=== PATIENT | female | born 1950 | race Hispanic/Latino ===

== ENCOUNTER 2018-12-24 04:57 | Inpatient (IN) | payer MEDICARE, OTHER ==
[~2018-12-24] VITALS: Ht 144.8 cm; Wt 52.2 kg
--- OUTSIDE RECORDS SUMMARY | 2018-12-24 05:02 | XMS REPORT ---
Author Author [facility] Address Unknown Phone Unavailable Care Team Providers Care Director Of Online [employer]chand[employer] Name Role Phone Unavailable Unavailable Payers Payer Name Policy Type Policy Number Effective Date Expiration Date Problems This patient has no known problems. Allergies, Adverse Reactions, Alerts Allergy Name Allergy Type Status Severity Reaction(s) Onset Date Inactive Date Treating Clinician Comments Sulfa (Sulfonamide Antibiotics) DA Active MO 2018-11-27 00:00:00 Sulfa (Sulfonamide Antibiotics) DA Active MO 2017-07-07 00:00:00 Medications This patient has no known medications. Results Test Description Test Time Test Comments Text Results Atomic Results Result Comments URINALYSIS COMPLETE 2018-12-23 03:58:00 UA COLOR (test code=COLU) YELLOW YELLOW UA APPEARANCE (test code=APPU) SLIGHTLY CLOUDY CLEAR UA GLUCOSE DIPSTICK (test code=DGLUU) 50 (Trace) mg/dL NEGATIVE UA BILIRUBIN DIPSTICK (test code=BILU) NEGATIVE mg/dL NEGATIVE UA KETONE DIPSTICK (test code=KETU) 5 (Trace) mg/dL NEGATIVE UA SPECIFIC GRAVITY (test code=SGU) 1.023 1.001-1.035 UA BLOOD DIPSTICK (test code=PATI) Negative NEGATIVE UA PH DIPSTICK (test code=MARIBETH) 5.0 5.0-8.0 UA PROTEIN DIPSTICK (test code=PROU) 100 (2+) mg/dL NEGATIVE UA UROBILINIOGEN DIPSTICK (test code=URO) NEGATIVE mg/dL NEGATIVE UA NITRITE DIPSTICK (test code=KB) NEGATIVE NEGATIVE UA LEUKOCYTE ESTERASE W REFLEX (test code=LEUUR) NEGATIVE NEGATIVE UA WBC (test code=WBCU) 0-5 #/HPF 0-5 UA RBC (test code=RBCU) 0-2 #/HPF 0-5 UA EPITHELIAL CELLS (test code=EPIU) FEW per HPF FEW UA BACTERIA (test code=BACU) FEW #/HPF NONE UA MUCUS (test code=MUCU) FEW #/LPF FEW Urine Source? Clean CatchBASIC METABOLIC [id number] 03:12:00* Test Item Value Reference Range Comments SODIUM (test code=NA) 140 mmol/L 136-145 POTASSIUM (test code=K) 4.7 mmol/L 3.5-5.1 CHLORIDE (test code=CL) 112.0 mmol/L 98-107 CARBON DIOXIDE (test code=CO2) 20.0 mmol/L 21-32 ANION GAP (test code=GAP) 12.7 10-20 GLUCOSE (test code=GLU) 103 mg/dL 74-106 BLOOD UREA NITROGEN (test code=BUN) 26 mg/dL 7-18 GLOMERULAR FILTRATION RATE (test code=GFR) 45 mL/min >=60 Estimated GFR by using Modified MDRD formula.Chronic kidney disease is defined as either kidney damageor GFR <60 mL/min/1.73 m2 for >3 months. CREATININE (test code=CREAT) 1.20 mg/dL 0.55-1.02 Note change in reference range due to change in reagent. BUN/CREATININE RATIO (test code=BUN/CREA) 21.7 10-20 CALCIUM (test code=CA) 7.9 mg/dL 8.5-10.1 HEPATIC FUNCTION [id number] 03:12:00* Test Item Value Reference Range Comments TOTAL PROTEIN (test code=PROT) 5.9 gram/dL 6.4-8.2 ALBUMIN (test code=ALB) 2.2 g/dL 3.4-5.0 GLOBULIN (test code=GLOB) 3.7 gram/dL 2.7-4.2 ALBUMIN/GLOBULIN RATIO (test code=A/G) 0.6 0.75-1.50 BILIRUBIN TOTAL (test code=BILT) 0.10 mg/dL 0.0-1.0 BILIRUBIN DIRECT (test code=BILD) < 0.05 mg/dL 0.0-0.20 SGOT/AST (test code=AST) 20 IUnit/L 15-37 SGPT/ALT (test code=ALT) 19 IUnit/L 12-78 ALKALINE PHOSPHATASE TOTAL (test code=ALKP) 96 IUnit/L 45-117 Note change in reference range due to change in reagent. [id number] 03:12:00* Test Item Value Reference Range Comments LIPASE (test code=LIP) 170 U/L 73.0-393.0 [id number] 03:12:00* Test Item Value Reference Range Comments TROPONIN-I (test code=TROPI) <0.015 ng/mL 0-0.045 BASIC METABOLIC [id number] 01:57:00* Test Item Value Reference Range Comments SODIUM (test code=NA) 140 mmol/L 136-145 POTASSIUM (test code=K) 4.7 mmol/L 3.5-5.1 CHLORIDE (test code=CL) 112.0 mmol/L 98-107 CARBON DIOXIDE (test code=CO2) mmol/L 21-32 ANION GAP (test code=GAP) 10-20 GLUCOSE (test code=GLU) mg/dL 74-106 BLOOD UREA NITROGEN (test code=BUN) mg/dL 7-18 GLOMERULAR FILTRATION RATE (test code=GFR) mL/min >=60 CREATININE (test code=CREAT) mg/dL 0.55-1.02 BUN/CREATININE RATIO (test code=BUN/CREA) 10-20 CALCIUM (test code=CA) mg/dL 8.5-10.1 HEPATIC FUNCTION [id number] 01:57:00* Test Item Value Reference Range Comments TOTAL PROTEIN (test code=PROT) gram/dL 6.4-8.2 ALBUMIN (test code=ALB) g/dL 3.4-5.0 GLOBULIN (test code=GLOB) gram/dL 2.7-4.2 ALBUMIN/GLOBULIN RATIO (test code=A/G) 0.75-1.50 BILIRUBIN TOTAL (test code=BILT) mg/dL 0.0-1.0 BILIRUBIN DIRECT (test code=BILD) mg/dL 0.0-0.20 SGOT/AST (test code=AST) IUnit/L 15-37 SGPT/ALT (test code=ALT) IUnit/L 12-78 ALKALINE PHOSPHATASE TOTAL (test code=ALKP) IUnit/L 45-117 [id number] 01:57:00* Test Item Value Reference Range Comments LIPASE (test code=LIP) U/L 73.0-393.0 [id number] 01:57:00* Test Item Value Reference Range Comments TROPONIN-I (test code=TROPI) ng/mL 0-0.045 CBC W/O [id number] 01:33:00* Test Item Value Reference Range Comments WHITE BLOOD CELL (test code=WBC) 11.1 K/mm3 4.5-12.5 RED BLOOD CELL (test code=RBC) 2.71 mill/mm3 3.7-5.2 HEMOGLOBIN (test code=HGB) 8.0 gram/dL 11.5-15.5 HEMATOCRIT (test code=HCT) 26.1 % 36.0-46.0 MEAN CELL VOLUME (test code=MCV) 96.3 fL 80-98 MEAN CELL HGB (test code=MCH) 29.5 picogram 27.0-33.0 MEAN CELL HGB CONCETRATION (test code=MCHC) 30.7 gram/dL 33.0-36.0 RED CELL DISTRIBUTION WIDTH (test code=RDW) 15.6 % 11.6-16.2 PLATELET COUNT (test code=PLT) 157 K/mm3 150-450 MEAN PLATELET VOLUME (test code=MPV) 10.4 fL 6.7-11.0 [id number] 20:49:00* Test Item Value Reference Range Comments GLUBED (test code=GLUBED) 124 mg/dL 74-106 Performed by certified soyfreeze operator at [facility] [id number] 13:10:00* Test Item Value Reference Range Comments GLUBED (test code=GLUBED) 225 mg/dL 74-106 Performed by certified soyfreeze operator at [facility] [id number] 09:24:00* Test Item Value Reference Range Comments GLUBED (test code=GLUBED) 124 mg/dL 74-106 Performed by certified soyfreeze operator at [facility] CBC W/MANUAL [id number] 06:07:00* Test Item Value Reference Range Comments WHITE BLOOD CELL (test code=WBC) 15.7 K/mm3 4.5-12.5 RED BLOOD CELL (test code=RBC) 2.85 mill/mm3 3.7-5.2 HEMOGLOBIN (test code=HGB) 8.1 gram/dL 11.5-15.5 HEMATOCRIT (test code=HCT) 26.3 % 36.0-46.0 MEAN CELL VOLUME (test code=MCV) 92.3 fL 80-98 MEAN CELL HGB (test code=MCH) 28.4 picogram 27.0-33.0 MEAN CELL HGB CONCETRATION (test code=MCHC) 30.8 gram/dL 33.0-36.0 RED CELL DISTRIBUTION WIDTH (test code=RDW) 15.2 % 11.6-16.2 RED CELL DISTRIBUTION WIDTH SD (test code=RDW-SD) 51.1 fL 37.0-51.0 PLATELET COUNT (test code=PLT) 104 K/mm3 150-450 RESULT VERIFIED BY REPEAT ANALYSIS MEAN PLATELET VOLUME (test code=MPV) 11.8 fL 6.7-11.0 IMMATURE GRANULOCYTE % (test code=IG%) 0.3 % 0.0-5.0 NUCLEATED RBC % (test code=NRBC%) 0.0 % 0-0 NEUTROPHIL # (test code=NT#) 3.62 K/mm3 1.8-7.7 IMMATURE GRANULOCYTE # (test code=IG#) 0.05 x10 3/uL 0-0.03 LYMPHOCYTE # (test code=LY#) 10.89 K/mm3 1.0-5.0 MONOCYTE # (test code=MO#) 0.79 K/mm3 0-0.8 EOSINOPHIL # (test code=EO#) 0.27 K/mm3 0.0-0.5 BASOPHIL # (test code=BA#) 0.05 K/mm3 0.0-0.2 NUCLEATED RBC # (test code=NRBC#) 0.00 K/mm3 0.0-0.1 MANUAL DIFF REQUIRED (test code=MDIFF) YES STAIN ACCEPTABILITY (test code=STN ACCEPTABLE) STAIN ACCEPTABLE TOTAL CELLS COUNTED (test code=TCC) 115 #CELLS SEGMENTED NEUTROPHILS (test code=SEG) 22.6 % 39-69 BAND NEUTROPHIL (test code=BAND) 0 % 0-10 LYMPHOCYTE (test code=LYMPH) 66.1 % 25-55 REACTIVE LYMPH (test code=RELYMPH) 0 % MONOCYTE (test code=MON) 9.6 % 0-10 EOSINOPHIL (test code=EOS) 0 % 0.0-5.0 BASOPHIL (test code=BASO) 1.7 % 0-1.0 METAMYELOCYTE (test code=META) 0 % 0-0 MYELOCYTE (test code=MYELO) 0 % 0.0-0.0 PROMYELOCYTE (test code=PROM) 0 % 0-0 ANISOCYTOSIS (test code=ANISO) 1+ PLATELET ESTIMATE (test code=PLTEST) DECREASED PLATELET MORPHOLOGY (test code=PLTMORPH) NORMAL IMMATURE FORMS (test code=IMMAT) 0 % BASIC METABOLIC [id number] 05:56:00* Test Item Value Reference Range Comments SODIUM (test code=NA) 140 mmol/L 136-145 POTASSIUM (test code=K) 4.5 mmol/L 3.5-5.1 CHLORIDE (test code=CL) 106.0 mmol/L 98-107 CARBON DIOXIDE (test code=CO2) 29.0 mmol/L 21-32 ANION GAP (test code=GAP) 9.5 10-20 GLUCOSE (test code=GLU) 194 mg/dL 74-106 BLOOD UREA NITROGEN (test code=BUN) 38 mg/dL 7-18 RESULT VERIFIED BY REPEAT ANALYSIS GLOMERULAR FILTRATION RATE (test code=GFR) 41 mL/min >=60 Estimated GFR by using Modified MDRD formula.Chronic kidney disease is defined as either kidney damageor GFR <60 mL/min/1.73 m2 for >3 months. CREATININE (test code=CREAT) 1.30 mg/dL 0.55-1.02 Note change in reference range due to change in reagent. BUN/CREATININE RATIO (test code=BUN/CREA) 29.2 10-20 CALCIUM (test code=CA) 7.6 mg/dL 8.5-10.1 BASIC METABOLIC [id number] 05:44:00* Test Item Value Reference Range Comments SODIUM (test code=NA) 140 mmol/L 136-145 POTASSIUM (test code=K) 4.5 mmol/L 3.5-5.1 CHLORIDE (test code=CL) 106.0 mmol/L 98-107 CARBON DIOXIDE (test code=CO2) mmol/L 21-32 ANION GAP (test code=GAP) 10-20 GLUCOSE (test code=GLU) mg/dL 74-106 BLOOD UREA NITROGEN (test code=BUN) mg/dL 7-18 GLOMERULAR FILTRATION RATE (test code=GFR) mL/min >=60 CREATININE (test code=CREAT) mg/dL 0.55-1.02 BUN/CREATININE RATIO (test code=BUN/CREA) 10-20 CALCIUM (test code=CA) mg/dL 8.5-10.1 CBC W/MANUAL [id number] 05:34:00* Test Item Value Reference Range Comments WHITE BLOOD CELL (test code=WBC) 15.7 K/mm3 4.5-12.5 RED BLOOD CELL (test code=RBC) 2.85 mill/mm3 3.7-5.2 HEMOGLOBIN (test code=HGB) 8.1 gram/dL 11.5-15.5 HEMATOCRIT (test code=HCT) 26.3 % 36.0-46.0 MEAN CELL VOLUME (test code=MCV) 92.3 fL 80-98 MEAN CELL HGB (test code=MCH) 28.4 picogram 27.0-33.0 MEAN CELL HGB CONCETRATION (test code=MCHC) 30.8 gram/dL 33.0-36.0 RED CELL DISTRIBUTION WIDTH (test code=RDW) 15.2 % 11.6-16.2 RED CELL DISTRIBUTION WIDTH SD (test code=RDW-SD) 51.1 fL 37.0-51.0 PLATELET COUNT (test code=PLT) 104 K/mm3 150-450 RESULT VERIFIED BY REPEAT ANALYSIS MEAN PLATELET VOLUME (test code=MPV) 11.8 fL 6.7-11.0 IMMATURE GRANULOCYTE % (test code=IG%) 0.3 % 0.0-5.0 NUCLEATED RBC % (test code=NRBC%) 0.0 % 0-0 NEUTROPHIL # (test code=NT#) 3.62 K/mm3 1.8-7.7 IMMATURE GRANULOCYTE # (test code=IG#) 0.05 x10 3/uL 0-0.03 LYMPHOCYTE # (test code=LY#) 10.89 K/mm3 1.0-5.0 MONOCYTE # (test code=MO#) 0.79 K/mm3 0-0.8 EOSINOPHIL # (test code=EO#) 0.27 K/mm3 0.0-0.5 BASOPHIL # (test code=BA#) 0.05 K/mm3 0.0-0.2 NUCLEATED RBC # (test code=NRBC#) 0.00 K/mm3 0.0-0.1 MANUAL DIFF REQUIRED (test code=MDIFF) YES STAIN ACCEPTABILITY (test code=STN ACCEPTABLE) TOTAL CELLS COUNTED (test code=TCC) #CELLS SEGMENTED NEUTROPHILS (test code=SEG) % 39-69 LYMPHOCYTE (test code=LYMPH) % 25-55 MONOCYTE (test code=MON) % 0-10 EOSINOPHIL (test code=EOS) % 0.0-5.0 CABOT RINGS (test code=CAB) MORPHOLOGY COMMENT (test code=MOC) PLATELET ESTIMATE (test code=PLTEST) PLATELET MORPHOLOGY (test code=PLTMORPH) CBC W/MANUAL [id number] 05:34:00* Test Item Value Reference Range Comments WHITE BLOOD CELL (test code=WBC) 15.7 K/mm3 4.5-12.5 RED BLOOD CELL (test code=RBC) 2.85 mill/mm3 3.7-5.2 HEMOGLOBIN (test code=HGB) 8.1 gram/dL 11.5-15.5 HEMATOCRIT (test code=HCT) 26.3 % 36.0-46.0 MEAN CELL VOLUME (test code=MCV) 92.3 fL 80-98 MEAN CELL HGB (test code=MCH) 28.4 picogram 27.0-33.0 MEAN CELL HGB CONCETRATION (test code=MCHC) 30.8 gram/dL 33.0-36.0 RED CELL DISTRIBUTION WIDTH (test code=RDW) 15.2 % 11.6-16.2 RED CELL DISTRIBUTION WIDTH SD (test code=RDW-SD) 51.1 fL 37.0-51.0 PLATELET COUNT (test code=PLT) 104 K/mm3 150-450 RESULT VERIFIED BY REPEAT ANALYSIS MEAN PLATELET VOLUME (test code=MPV) 11.8 fL 6.7-11.0 IMMATURE GRANULOCYTE % (test code=IG%) 0.3 % 0.0-5.0 NUCLEATED RBC % (test code=NRBC%) 0.0 % 0-0 NEUTROPHIL # (test code=NT#) 3.62 K/mm3 1.8-7.7 IMMATURE GRANULOCYTE # (test code=IG#) 0.05 x10 3/uL 0-0.03 LYMPHOCYTE # (test code=LY#) 10.89 K/mm3 1.0-5.0 MONOCYTE # (test code=MO#) 0.79 K/mm3 0-0.8 EOSINOPHIL # (test code=EO#) 0.27 K/mm3 0.0-0.5 BASOPHIL # (test code=BA#) 0.05 K/mm3 0.0-0.2 NUCLEATED RBC # (test code=NRBC#) 0.00 K/mm3 0.0-0.1 MANUAL DIFF REQUIRED (test code=MDIFF) YES STAIN ACCEPTABILITY (test code=STN ACCEPTABLE) TOTAL CELLS COUNTED (test code=TCC) #CELLS SEGMENTED NEUTROPHILS (test code=SEG) % 39-69 LYMPHOCYTE (test code=LYMPH) % 25-55 MONOCYTE (test code=MON) % 0-10 EOSINOPHIL (test code=EOS) % 0.0-5.0 CABOT RINGS (test code=CAB) MORPHOLOGY COMMENT (test code=MOC) PLATELET ESTIMATE (test code=PLTEST) PLATELET MORPHOLOGY (test code=PLTMORPH) CBC W/MANUAL [id number] 05:34:00* Test Item Value Reference Range Comments WHITE BLOOD CELL (test code=WBC) 15.7 K/mm3 4.5-12.5 RED BLOOD CELL (test code=RBC) 2.85 mill/mm3 3.7-5.2 HEMOGLOBIN (test code=HGB) 8.1 gram/dL 11.5-15.5 HEMATOCRIT (test code=HCT) 26.3 % 36.0-46.0 MEAN CELL VOLUME (test code=MCV) 92.3 fL 80-98 MEAN CELL HGB (test code=MCH) 28.4 picogram 27.0-33.0 MEAN CELL HGB CONCETRATION (test code=MCHC) 30.8 gram/dL 33.0-36.0 RED CELL DISTRIBUTION WIDTH (test code=RDW) 15.2 % 11.6-16.2 RED CELL DISTRIBUTION WIDTH SD (test code=RDW-SD) 51.1 fL 37.0-51.0 PLATELET COUNT (test code=PLT) 104 K/mm3 150-450 RESULT VERIFIED BY REPEAT ANALYSIS MEAN PLATELET VOLUME (test code=MPV) 11.8 fL 6.7-11.0 IMMATURE GRANULOCYTE % (test code=IG%) 0.3 % 0.0-5.0 NUCLEATED RBC % (test code=NRBC%) 0.0 % 0-0 NEUTROPHIL # (test code=NT#) 3.62 K/mm3 1.8-7.7 IMMATURE GRANULOCYTE # (test code=IG#) 0.05 x10 3/uL 0-0.03 LYMPHOCYTE # (test code=LY#) 10.89 K/mm3 1.0-5.0 MONOCYTE # (test code=MO#) 0.79 K/mm3 0-0.8 EOSINOPHIL # (test code=EO#) 0.27 K/mm3 0.0-0.5 BASOPHIL # (test code=BA#) 0.05 K/mm3 0.0-0.2 NUCLEATED RBC # (test code=NRBC#) 0.00 K/mm3 0.0-0.1 MANUAL DIFF REQUIRED (test code=MDIFF) YES STAIN ACCEPTABILITY (test code=STN ACCEPTABLE) TOTAL CELLS COUNTED (test code=TCC) #CELLS SEGMENTED NEUTROPHILS (test code=SEG) % 39-69 LYMPHOCYTE (test code=LYMPH) % 25-55 MONOCYTE (test code=MON) % 0-10 EOSINOPHIL (test code=EOS) % 0.0-5.0 MORPHOLOGY COMMENT (test code=MOC) PLATELET ESTIMATE (test code=PLTEST) PLATELET MORPHOLOGY (test code=PLTMORPH) CBC W/MANUAL [id number] 05:34:00* Test Item Value Reference Range Comments WHITE BLOOD CELL (test code=WBC) 15.7 K/mm3 4.5-12.5 RED BLOOD CELL (test code=RBC) 2.85 mill/mm3 3.7-5.2 HEMOGLOBIN (test code=HGB) 8.1 gram/dL 11.5-15.5 HEMATOCRIT (test code=HCT) 26.3 % 36.0-46.0 MEAN CELL VOLUME (test code=MCV) 92.3 fL 80-98 MEAN CELL HGB (test code=MCH) 28.4 picogram 27.0-33.0 MEAN CELL HGB CONCETRATION (test code=MCHC) 30.8 gram/dL 33.0-36.0 RED CELL DISTRIBUTION WIDTH (test code=RDW) 15.2 % 11.6-16.2 RED CELL DISTRIBUTION WIDTH SD (test code=RDW-SD) 51.1 fL 37.0-51.0 PLATELET COUNT (test code=PLT) 104 K/mm3 150-450 RESULT VERIFIED BY REPEAT ANALYSIS MEAN PLATELET VOLUME (test code=MPV) 11.8 fL 6.7-11.0 IMMATURE GRANULOCYTE % (test code=IG%) 0.3 % 0.0-5.0 NUCLEATED RBC % (test code=NRBC%) 0.0 % 0-0 NEUTROPHIL # (test code=NT#) 3.62 K/mm3 1.8-7.7 IMMATURE GRANULOCYTE # (test code=IG#) 0.05 x10 3/uL 0-0.03 LYMPHOCYTE # (test code=LY#) 10.89 K/mm3 1.0-5.0 MONOCYTE # (test code=MO#) 0.79 K/mm3 0-0.8 EOSINOPHIL # (test code=EO#) 0.27 K/mm3 0.0-0.5 BASOPHIL # (test code=BA#) 0.05 K/mm3 0.0-0.2 NUCLEATED RBC # (test code=NRBC#) 0.00 K/mm3 0.0-0.1 MANUAL DIFF REQUIRED (test code=MDIFF) YES STAIN ACCEPTABILITY (test code=STN ACCEPTABLE) TOTAL CELLS COUNTED (test code=TCC) #CELLS SEGMENTED NEUTROPHILS (test code=SEG) % 39-69 LYMPHOCYTE (test code=LYMPH) % 25-55 MONOCYTE (test code=MON) % 0-10 MORPHOLOGY COMMENT (test code=MOC) PLATELET ESTIMATE (test code=PLTEST) PLATELET MORPHOLOGY (test code=PLTMORPH) CBC W/MANUAL [id number] 05:34:00* Test Item Value Reference Range Comments WHITE BLOOD CELL (test code=WBC) 15.7 K/mm3 4.5-12.5 RED BLOOD CELL (test code=RBC) 2.85 mill/mm3 3.7-5.2 HEMOGLOBIN (test code=HGB) 8.1 gram/dL 11.5-15.5 HEMATOCRIT (test code=HCT) 26.3 % 36.0-46.0 MEAN CELL VOLUME (test code=MCV) 92.3 fL 80-98 MEAN CELL HGB (test code=MCH) 28.4 picogram 27.0-33.0 MEAN CELL HGB CONCETRATION (test code=MCHC) 30.8 gram/dL 33.0-36.0 RED CELL DISTRIBUTION WIDTH (test code=RDW) 15.2 % 11.6-16.2 RED CELL DISTRIBUTION WIDTH SD (test code=RDW-SD) 51.1 fL 37.0-51.0 PLATELET COUNT (test code=PLT) 104 K/mm3 150-450 RESULT VERIFIED BY REPEAT ANALYSIS MEAN PLATELET VOLUME (test code=MPV) 11.8 fL 6.7-11.0 IMMATURE GRANULOCYTE % (test code=IG%) 0.3 % 0.0-5.0 NUCLEATED RBC % (test code=NRBC%) 0.0 % 0-0 NEUTROPHIL # (test code=NT#) 3.62 K/mm3 1.8-7.7 IMMATURE GRANULOCYTE # (test code=IG#) 0.05 x10 3/uL 0-0.03 LYMPHOCYTE # (test code=LY#) 10.89 K/mm3 1.0-5.0 MONOCYTE # (test code=MO#) 0.79 K/mm3 0-0.8 EOSINOPHIL # (test code=EO#) 0.27 K/mm3 0.0-0.5 BASOPHIL # (test code=BA#) 0.05 K/mm3 0.0-0.2 NUCLEATED RBC # (test code=NRBC#) 0.00 K/mm3 0.0-0.1 MANUAL DIFF REQUIRED (test code=MDIFF) YES STAIN ACCEPTABILITY (test code=STN ACCEPTABLE) TOTAL CELLS COUNTED (test code=TCC) #CELLS SEGMENTED NEUTROPHILS (test code=SEG) % 39-69 LYMPHOCYTE (test code=LYMPH) % 25-55 MONOCYTE (test code=MON) % 0-10 EOSINOPHIL (test code=EOS) % 0.0-5.0 CABOT RINGS (test code=CAB) MORPHOLOGY COMMENT (test code=MOC) PLATELET ESTIMATE (test code=PLTEST) PLATELET MORPHOLOGY (test code=PLTMORPH) [id number] 20:54:00* Test Item Value Reference Range Comments GLUBED (test code=GLUBED) 238 mg/dL 74-106 Performed by certified soyfreeze operator at [facility] [id number] 16:01:00* Test Item Value Reference Range Comments GLUBED (test code=GLUBED) 146 mg/dL 74-106 Performed by certified soyfreeze operator at [facility] [id number] 11:36:00* Test Item Value Reference Range Comments GLUBED (test code=GLUBED) 228 mg/dL 74-106 Performed by certified soyfreeze operator at [facility] CBC W/MANUAL [id number] 08:49:00* Test Item Value Reference Range Comments WHITE BLOOD CELL (test code=WBC) 14.5 K/mm3 4.5-12.5 RED BLOOD CELL (test code=RBC) 2.92 mill/mm3 3.7-5.2 HEMOGLOBIN (test code=HGB) 8.2 gram/dL 11.5-15.5 HEMATOCRIT (test code=HCT) 27.5 % 36.0-46.0 MEAN CELL VOLUME (test code=MCV) 94.2 fL 80-98 MEAN CELL HGB (test code=MCH) 28.1 picogram 27.0-33.0 MEAN CELL HGB CONCETRATION (test code=MCHC) 29.8 gram/dL 33.0-36.0 RED CELL DISTRIBUTION WIDTH (test code=RDW) 15.4 % 11.6-16.2 RED CELL DISTRIBUTION WIDTH SD (test code=RDW-SD) 53.1 fL 37.0-51.0 PLATELET COUNT (test code=PLT) 184 K/mm3 150-450 MEAN PLATELET VOLUME (test code=MPV) 10.7 fL 6.7-11.0 IMMATURE GRANULOCYTE % (test code=IG%) 0.3 % 0.0-5.0 NUCLEATED RBC % (test code=NRBC%) 0.0 % 0-0 NEUTROPHIL # (test code=NT#) 3.43 K/mm3 1.8-7.7 IMMATURE GRANULOCYTE # (test code=IG#) 0.05 x10 3/uL 0-0.03 LYMPHOCYTE # (test code=LY#) 9.90 K/mm3 1.0-5.0 MONOCYTE # (test code=MO#) 0.86 K/mm3 0-0.8 EOSINOPHIL # (test code=EO#) 0.23 K/mm3 0.0-0.5 BASOPHIL # (test code=BA#) 0.05 K/mm3 0.0-0.2 NUCLEATED RBC # (test code=NRBC#) 0.00 K/mm3 0.0-0.1 MANUAL DIFF REQUIRED (test code=MDIFF) YES STAIN ACCEPTABILITY (test code=STN ACCEPTABLE) STAIN ACCEPTABLE TOTAL CELLS COUNTED (test code=TCC) 119 #CELLS SEGMENTED NEUTROPHILS (test code=SEG) 31.9 % 39-69 BAND NEUTROPHIL (test code=BAND) 0 % 0-10 LYMPHOCYTE (test code=LYMPH) 59.7 % 25-55 REACTIVE LYMPH (test code=RELYMPH) 0 % MONOCYTE (test code=MON) 2.5 % 0-10 EOSINOPHIL (test code=EOS) 3.4 % 0.0-5.0 BASOPHIL (test code=BASO) 1.7 % 0-1.0 METAMYELOCYTE (test code=META) 0 % 0-0 MYELOCYTE (test code=MYELO) 0 % 0.0-0.0 PROMYELOCYTE (test code=PROM) 0 % 0-0 MORPHOLOGY COMMENT (test code=MOC) NORMAL PLATELET ESTIMATE (test code=PLTEST) ADEQUATE PLATELET MORPHOLOGY (test code=PLTMORPH) CLUMPING PRESENT IMMATURE FORMS (test code=IMMAT) 0 % BASIC METABOLIC [id number] 08:26:00* Test Item Value Reference Range Comments SODIUM (test code=NA) 143 mmol/L 136-145 POTASSIUM (test code=K) 4.6 mmol/L 3.5-5.1 CHLORIDE (test code=CL) 109.0 mmol/L 98-107 CARBON DIOXIDE (test code=CO2) 29.0 mmol/L 21-32 ANION GAP (test code=GAP) 9.6 10-20 GLUCOSE (test code=GLU) 112 mg/dL 74-106 BLOOD UREA NITROGEN (test code=BUN) 28 mg/dL 7-18 GLOMERULAR FILTRATION RATE (test code=GFR) 45 mL/min >=60 Estimated GFR by using Modified MDRD formula.Chronic kidney disease is defined as either kidney damageor GFR <60 mL/min/1.73 m2 for >3 months. CREATININE (test code=CREAT) 1.20 mg/dL 0.55-1.02 Note change in reference range due to change in reagent. BUN/CREATININE RATIO (test code=BUN/CREA) 23.1 10-20 CALCIUM (test code=CA) 8.0 mg/dL 8.5-10.1 BASIC METABOLIC [id number] 08:21:00* Test Item Value Reference Range Comments SODIUM (test code=NA) 143 mmol/L 136-145 POTASSIUM (test code=K) 4.6 mmol/L 3.5-5.1 CHLORIDE (test code=CL) 109.0 mmol/L 98-107 CARBON DIOXIDE (test code=CO2) mmol/L 21-32 ANION GAP (test code=GAP) 10-20 GLUCOSE (test code=GLU) mg/dL 74-106 BLOOD UREA NITROGEN (test code=BUN) mg/dL 7-18 GLOMERULAR FILTRATION RATE (test code=GFR) mL/min >=60 CREATININE (test code=CREAT) mg/dL 0.55-1.02 BUN/CREATININE RATIO (test code=BUN/CREA) 10-20 CALCIUM (test code=CA) mg/dL 8.5-10.1 CBC W/MANUAL [id number] 08:17:00* Test Item Value Reference Range Comments WHITE BLOOD CELL (test code=WBC) 14.5 K/mm3 4.5-12.5 RED BLOOD CELL (test code=RBC) 2.92 mill/mm3 3.7-5.2 HEMOGLOBIN (test code=HGB) 8.2 gram/dL 11.5-15.5 HEMATOCRIT (test code=HCT) 27.5 % 36.0-46.0 MEAN CELL VOLUME (test code=MCV) 94.2 fL 80-98 MEAN CELL HGB (test code=MCH) 28.1 picogram 27.0-33.0 MEAN CELL HGB CONCETRATION (test code=MCHC) 29.8 gram/dL 33.0-36.0 RED CELL DISTRIBUTION WIDTH (test code=RDW) 15.4 % 11.6-16.2 RED CELL DISTRIBUTION WIDTH SD (test code=RDW-SD) 53.1 fL 37.0-51.0 PLATELET COUNT (test code=PLT) 184 K/mm3 150-450 MEAN PLATELET VOLUME (test code=MPV) 10.7 fL 6.7-11.0 IMMATURE GRANULOCYTE % (test code=IG%) 0.3 % 0.0-5.0 NUCLEATED RBC % (test code=NRBC%) 0.0 % 0-0 NEUTROPHIL # (test code=NT#) 3.43 K/mm3 1.8-7.7 IMMATURE GRANULOCYTE # (test code=IG#) 0.05 x10 3/uL 0-0.03 LYMPHOCYTE # (test code=LY#) 9.90 K/mm3 1.0-5.0 MONOCYTE # (test code=MO#) 0.86 K/mm3 0-0.8 EOSINOPHIL # (test code=EO#) 0.23 K/mm3 0.0-0.5 BASOPHIL # (test code=BA#) 0.05 K/mm3 0.0-0.2 NUCLEATED RBC # (test code=NRBC#) 0.00 K/mm3 0.0-0.1 MANUAL DIFF REQUIRED (test code=MDIFF) YES STAIN ACCEPTABILITY (test code=STN ACCEPTABLE) TOTAL CELLS COUNTED (test code=TCC) #CELLS SEGMENTED NEUTROPHILS (test code=SEG) % 39-69 LYMPHOCYTE (test code=LYMPH) % 25-55 MONOCYTE (test code=MON) % 0-10 EOSINOPHIL (test code=EOS) % 0.0-5.0 CABOT RINGS (test code=CAB) MORPHOLOGY COMMENT (test code=MOC) PLATELET ESTIMATE (test code=PLTEST) PLATELET MORPHOLOGY (test code=PLTMORPH) CBC W/MANUAL [id number] 08:17:00* Test Item Value Reference Range Comments WHITE BLOOD CELL (test code=WBC) 14.5 K/mm3 4.5-12.5 RED BLOOD CELL (test code=RBC) 2.92 mill/mm3 3.7-5.2 HEMOGLOBIN (test code=HGB) 8.2 gram/dL 11.5-15.5 HEMATOCRIT (test code=HCT) 27.5 % 36.0-46.0 MEAN CELL VOLUME (test code=MCV) 94.2 fL 80-98 MEAN CELL HGB (test code=MCH) 28.1 picogram 27.0-33.0 MEAN CELL HGB CONCETRATION (test code=MCHC) 29.8 gram/dL 33.0-36.0 RED CELL DISTRIBUTION WIDTH (test code=RDW) 15.4 % 11.6-16.2 RED CELL DISTRIBUTION WIDTH SD (test code=RDW-SD) 53.1 fL 37.0-51.0 PLATELET COUNT (test code=PLT) 184 K/mm3 150-450 MEAN PLATELET VOLUME (test code=MPV) 10.7 fL 6.7-11.0 IMMATURE GRANULOCYTE % (test code=IG%) 0.3 % 0.0-5.0 NUCLEATED RBC % (test code=NRBC%) 0.0 % 0-0 NEUTROPHIL # (test code=NT#) 3.43 K/mm3 1.8-7.7 IMMATURE GRANULOCYTE # (test code=IG#) 0.05 x10 3/uL 0-0.03 LYMPHOCYTE # (test code=LY#) 9.90 K/mm3 1.0-5.0 MONOCYTE # (test code=MO#) 0.86 K/mm3 0-0.8 EOSINOPHIL # (test code=EO#) 0.23 K/mm3 0.0-0.5 BASOPHIL # (test code=BA#) 0.05 K/mm3 0.0-0.2 NUCLEATED RBC # (test code=NRBC#) 0.00 K/mm3 0.0-0.1 MANUAL DIFF REQUIRED (test code=MDIFF) YES STAIN ACCEPTABILITY (test code=STN ACCEPTABLE) TOTAL CELLS COUNTED (test code=TCC) #CELLS SEGMENTED NEUTROPHILS (test code=SEG) % 39-69 LYMPHOCYTE (test code=LYMPH) % 25-55 MONOCYTE (test code=MON) % 0-10 EOSINOPHIL (test code=EOS) % 0.0-5.0 CABOT RINGS (test code=CAB) MORPHOLOGY COMMENT (test code=MOC) PLATELET ESTIMATE (test code=PLTEST) PLATELET MORPHOLOGY (test code=PLTMORPH) CBC W/MANUAL [id number] 08:17:00* Test Item Value Reference Range Comments WHITE BLOOD CELL (test code=WBC) 14.5 K/mm3 4.5-12.5 RED BLOOD CELL (test code=RBC) 2.92 mill/mm3 3.7-5.2 HEMOGLOBIN (test code=HGB) 8.2 gram/dL 11.5-15.5 HEMATOCRIT (test code=HCT) 27.5 % 36.0-46.0 MEAN CELL VOLUME (test code=MCV) 94.2 fL 80-98 MEAN CELL HGB (test code=MCH) 28.1 picogram 27.0-33.0 MEAN CELL HGB CONCETRATION (test code=MCHC) 29.8 gram/dL 33.0-36.0 RED CELL DISTRIBUTION WIDTH (test code=RDW) 15.4 % 11.6-16.2 RED CELL DISTRIBUTION WIDTH SD (test code=RDW-SD) 53.1 fL 37.0-51.0 PLATELET COUNT (test code=PLT) 184 K/mm3 150-450 MEAN PLATELET VOLUME (test code=MPV) 10.7 fL 6.7-11.0 IMMATURE GRANULOCYTE % (test code=IG%) 0.3 % 0.0-5.0 NUCLEATED RBC % (test code=NRBC%) 0.0 % 0-0 NEUTROPHIL # (test code=NT#) 3.43 K/mm3 1.8-7.7 IMMATURE GRANULOCYTE # (test code=IG#) 0.05 x10 3/uL 0-0.03 LYMPHOCYTE # (test code=LY#) 9.90 K/mm3 1.0-5.0 MONOCYTE # (test code=MO#) 0.86 K/mm3 0-0.8 EOSINOPHIL # (test code=EO#) 0.23 K/mm3 0.0-0.5 BASOPHIL # (test code=BA#) 0.05 K/mm3 0.0-0.2 NUCLEATED RBC # (test code=NRBC#) 0.00 K/mm3 0.0-0.1 MANUAL DIFF REQUIRED (test code=MDIFF) YES STAIN ACCEPTABILITY (test code=STN ACCEPTABLE) TOTAL CELLS COUNTED (test code=TCC) #CELLS SEGMENTED NEUTROPHILS (test code=SEG) % 39-69 LYMPHOCYTE (test code=LYMPH) % 25-55 MONOCYTE (test code=MON) % 0-10 EOSINOPHIL (test code=EOS) % 0.0-5.0 MORPHOLOGY COMMENT (test code=MOC) PLATELET ESTIMATE (test code=PLTEST) PLATELET MORPHOLOGY (test code=PLTMORPH) CBC W/MANUAL [id number] 08:17:00* Test Item Value Reference Range Comments WHITE BLOOD CELL (test code=WBC) 14.5 K/mm3 4.5-12.5 RED BLOOD CELL (test code=RBC) 2.92 mill/mm3 3.7-5.2 HEMOGLOBIN (test code=HGB) 8.2 gram/dL 11.5-15.5 HEMATOCRIT (test code=HCT) 27.5 % 36.0-46.0 MEAN CELL VOLUME (test code=MCV) 94.2 fL 80-98 MEAN CELL HGB (test code=MCH) 28.1 picogram 27.0-33.0 MEAN CELL HGB CONCETRATION (test code=MCHC) 29.8 gram/dL 33.0-36.0 RED CELL DISTRIBUTION WIDTH (test code=RDW) 15.4 % 11.6-16.2 RED CELL DISTRIBUTION WIDTH SD (test code=RDW-SD) 53.1 fL 37.0-51.0 PLATELET COUNT (test code=PLT) 184 K/mm3 150-450 MEAN PLATELET VOLUME (test code=MPV) 10.7 fL 6.7-11.0 IMMATURE GRANULOCYTE % (test code=IG%) 0.3 % 0.0-5.0 NUCLEATED RBC % (test code=NRBC%) 0.0 % 0-0 NEUTROPHIL # (test code=NT#) 3.43 K/mm3 1.8-7.7 IMMATURE GRANULOCYTE # (test code=IG#) 0.05 x10 3/uL 0-0.03 LYMPHOCYTE # (test code=LY#) 9.90 K/mm3 1.0-5.0 MONOCYTE # (test code=MO#) 0.86 K/mm3 0-0.8 EOSINOPHIL # (test code=EO#) 0.23 K/mm3 0.0-0.5 BASOPHIL # (test code=BA#) 0.05 K/mm3 0.0-0.2 NUCLEATED RBC # (test code=NRBC#) 0.00 K/mm3 0.0-0.1 MANUAL DIFF REQUIRED (test code=MDIFF) YES STAIN ACCEPTABILITY (test code=STN ACCEPTABLE) TOTAL CELLS COUNTED (test code=TCC) #CELLS SEGMENTED NEUTROPHILS (test code=SEG) % 39-69 LYMPHOCYTE (test code=LYMPH) % 25-55 MONOCYTE (test code=MON) % 0-10 MORPHOLOGY COMMENT (test code=MOC) PLATELET ESTIMATE (test code=PLTEST) PLATELET MORPHOLOGY (test code=PLTMORPH) CBC W/MANUAL [id number] 08:17:00* Test Item Value Reference Range Comments WHITE BLOOD CELL (test code=WBC) 14.5 K/mm3 4.5-12.5 RED BLOOD CELL (test code=RBC) 2.92 mill/mm3 3.7-5.2 HEMOGLOBIN (test code=HGB) 8.2 gram/dL 11.5-15.5 HEMATOCRIT (test code=HCT) 27.5 % 36.0-46.0 MEAN CELL VOLUME (test code=MCV) 94.2 fL 80-98 MEAN CELL HGB (test code=MCH) 28.1 picogram 27.0-33.0 MEAN CELL HGB CONCETRATION (test code=MCHC) 29.8 gram/dL 33.0-36.0 RED CELL DISTRIBUTION WIDTH (test code=RDW) 15.4 % 11.6-16.2 RED CELL DISTRIBUTION WIDTH SD (test code=RDW-SD) 53.1 fL 37.0-51.0 PLATELET COUNT (test code=PLT) 184 K/mm3 150-450 MEAN PLATELET VOLUME (test code=MPV) 10.7 fL 6.7-11.0 IMMATURE GRANULOCYTE % (test code=IG%) 0.3 % 0.0-5.0 NUCLEATED RBC % (test code=NRBC%) 0.0 % 0-0 NEUTROPHIL # (test code=NT#) 3.43 K/mm3 1.8-7.7 IMMATURE GRANULOCYTE # (test code=IG#) 0.05 x10 3/uL 0-0.03 LYMPHOCYTE # (test code=LY#) 9.90 K/mm3 1.0-5.0 MONOCYTE # (test code=MO#) 0.86 K/mm3 0-0.8 EOSINOPHIL # (test code=EO#) 0.23 K/mm3 0.0-0.5 BASOPHIL # (test code=BA#) 0.05 K/mm3 0.0-0.2 NUCLEATED RBC # (test code=NRBC#) 0.00 K/mm3 0.0-0.1 MANUAL DIFF REQUIRED (test code=MDIFF) YES STAIN ACCEPTABILITY (test code=STN ACCEPTABLE) TOTAL CELLS COUNTED (test code=TCC) #CELLS SEGMENTED NEUTROPHILS (test code=SEG) % 39-69 LYMPHOCYTE (test code=LYMPH) % 25-55 MONOCYTE (test code=MON) % 0-10 EOSINOPHIL (test code=EOS) % 0.0-5.0 CABOT RINGS (test code=CAB) MORPHOLOGY COMMENT (test code=MOC) PLATELET ESTIMATE (test code=PLTEST) PLATELET MORPHOLOGY (test code=PLTMORPH) [id number] 07:57:00* Test Item Value Reference Range Comments GLUBED (test code=GLUBED) 104 mg/dL 74-106 Performed by certified soyfreeze operator at [facility] LEUK/LYMPH MARKERS [id number] 06:42:00* Test Item Value Reference Range Comments LEUK/LYMPHOMA PANEL (test code=LEULYM) CLINICAL () A monoclonal B cell population is detected with lambda light chainrestriction, representing 68% of the leukocytes. These B cells kfbtwvuYJ89, CD19, CD20, CD22, CD23, CD38, FMC-7 (dim) and HLA-DR. They lackexpression of CD5, CD11c, and CD103.There is no loss of, or aberrant expression of, the joyner T cell antigens tosuggest a neoplastic T cell process.CD4:CD8 ratio 2.8No circulating blasts are detected. There is no immunophenotypic evidenceof abnormal myeloid maturation. Rare neutrophils show slightly left-shiftedmaturation.Monocytes show aberrant expression of CD56, a finding that can be seen inassociation with both reactive/activated processes as well as neoplasticprocesses.Analysis of the viable lymphocyte population shows: B cells 92%, T cells7%, NK cells 1%. COMMENT(S) (test code=COMM) () Peripheral blood VIABILITY (test code=VIABILI) () 79%Cell viability in this sample is sufficient for analysis but is less thanoptimal.The specimen was 3 days old when received in the Flow Cytometry laboratory. FLOW CYTO INTERPRETATION (test code=INTFLOW) () [employer] GATING STRATEGY (test code=GATSTT) () 8 color analysis with CD45/SSC gating COMMENT(S) (test code=COM) Flow Interpretation:CD10+ clonal B cell population detected. (See comment.) Flow Comment:Recommend clinical correlation and follow up as appropriate.Coexpression of CD10 on the monoclonal B cell population isconsistent with a lymphoma of follicular center cell origin.The differential includes follicular lymphoma, diffuse largeB cell lymphoma, and Burkitt leukemia/lymphoma. Phenotype Chart:CD2 (-) CD3 (-)CD4 (-) CD5 (- )CD7 (-) CD8 (-)CD10 (+) CD11b (-)CD11c (-) CD13 (-)CD14 (-) CD15 (-)CD16 (-) CD19 (+) YcthhblrIM57 (+) CD22 (+)CD23 (+) CD33 (-)CD34 (-) CD38 (+) DimCD45 (+) CD56 (-)CD57 (-) CD103 (-)CD117 (-) FMC-7 (+) DimHLA-DR (+) KAPPA (-)LAMBDA (+) CD64 (-) Comment:Each antibody in this assay was utilized to assess forpotential abnormalities of studied cell populations or tocharacterize identified abnormalities.This test was developed and its performance characteristicsdetermined by [employer]. It has not been cleared or approvedby the U.S. Food and Drug Administration.The FDA has determined that such clearance or approval isnot necessary. This test is used for clinical purposes. Itshould not be regarded as investigational or for research. Test performed at: [facility] [address] [place] [address] [id number] 21:15:00* Test Item Value Reference Range Comments GLUBED (test code=GLUBED) 111 mg/dL 74-106 Performed by certified soyfreeze operator at [facility] [id number] 16:44:00* Test Item Value Reference Range Comments GLUBED (test code=GLUBED) 162 mg/dL 74-106 Performed by certified soyfreeze operator at [facility] LEUK/LYMPH MARKERS [id number] 15:16:00* Test Item Value Reference Range Comments LEUK/LYMPHOMA PANEL (test code=LEULYM) CLINICAL () A monoclonal B cell population is detected with lambda light chainrestriction, representing 68% of the leukocytes. These B cells aonptwgIQ10, CD19, CD20, CD22, CD23, CD38, FMC-7 (dim) and HLA-DR. They lackexpression of CD5, CD11c, and CD103.There is no loss of, or aberrant expression of, the joyner T cell antigens tosuggest a neoplastic T cell process.CD4:CD8 ratio 2.8No circulating blasts are detected. There is no immunophenotypic evidenceof abnormal myeloid maturation. Rare neutrophils show slightly left-shiftedmaturation.Monocytes show aberrant expression of CD56, a finding that can be seen inassociation with both reactive/activated processes as well as neoplasticprocesses.Analysis of the viable lymphocyte population shows: B cells 92%, T cells7%, NK cells 1%. COMMENT(S) (test code=COMM) () Peripheral blood VIABILITY (test code=VIABILI) () 79%Cell viability in this sample is sufficient for analysis but is less thanoptimal.The specimen was 3 days old when received in the Flow Cytometry laboratory. FLOW CYTO INTERPRETATION (test code=INTFLOW) () [employer] GATING STRATEGY (test code=GATSTRAT) () 8 color analysis with CD45/SSC gating COMMENT(S) (test code=COM) [id number] 12:29:00* Test Item Value Reference Range Comments GLUBED (test code=GLUBED) 177 mg/dL 74-106 Performed by certified soyfreeze operator at [facility] [id number] 08:20:00* Test Item Value Reference Range Comments GLUBED (test code=GLUBED) 213 mg/dL 74-106 Performed by certified soyfreeze operator at [facility] [id number] 07:42:00* Test Item Value Reference Range Comments GLUBED (test code=GLUBED) 258 mg/dL 74-106 Performed by certified soyfreeze operator at [facility] [id number] 07:42:00* Test Item Value Reference Range Comments GLUBED (test code=GLUBED) 204 mg/dL 74-106 Performed by certified soyfreeze operator at [facility] [id number] 07:42:00* Test Item Value Reference Range Comments GLUBED (test code=GLUBED) 103 mg/dL 74-106 Performed by certified soyfreeze operator at [facility] [id number] 20:56:00* Test Item Value Reference Range Comments GLUBED (test code=GLUBED) 83 mg/dL 74-106 Performed by certified soyfreeze operator at [facility] CBC W/MANUAL [id number] 06:02:00* Test Item Value Reference Range Comments WHITE BLOOD CELL (test code=WBC) 29.7 K/mm3 4.5-12.5 RED BLOOD CELL (test code=RBC) 3.32 mill/mm3 3.7-5.2 HEMOGLOBIN (test code=HGB) 9.3 gram/dL 11.5-15.5 HEMATOCRIT (test code=HCT) 31.0 % 36.0-46.0 MEAN CELL VOLUME (test code=MCV) 93.4 fL 80-98 MEAN CELL HGB (test code=MCH) 28.0 picogram 27.0-33.0 MEAN CELL HGB CONCETRATION (test code=MCHC) 30.0 gram/dL 33.0-36.0 RED CELL DISTRIBUTION WIDTH (test code=RDW) 15.0 % 11.6-16.2 RED CELL DISTRIBUTION WIDTH SD (test code=RDW-SD) 51.7 fL 37.0-51.0 PLATELET COUNT (test code=PLT) 202 K/mm3 150-450 MEAN PLATELET VOLUME (test code=MPV) 10.6 fL 6.7-11.0 IMMATURE GRANULOCYTE % (test code=IG%) 0.7 % 0.0-5.0 NUCLEATED RBC % (test code=NRBC%) 0.0 % 0-0 NEUTROPHIL # (test code=NT#) 6.50 K/mm3 1.8-7.7 IMMATURE GRANULOCYTE # (test code=IG#) 0.21 x10 3/uL 0-0.03 LYMPHOCYTE # (test code=LY#) 21.18 K/mm3 1.0-5.0 MONOCYTE # (test code=MO#) 1.36 K/mm3 0-0.8 EOSINOPHIL # (test code=EO#) 0.39 K/mm3 0.0-0.5 BASOPHIL # (test code=BA#) 0.10 K/mm3 0.0-0.2 NUCLEATED RBC # (test code=NRBC#) 0.00 K/mm3 0.0-0.1 MANUAL DIFF REQUIRED (test code=MDIFF) YES STAIN ACCEPTABILITY (test code=STN ACCEPTABLE) STAIN ACCEPTABLE TOTAL CELLS COUNTED (test code=TCC) 115 #CELLS SEGMENTED NEUTROPHILS (test code=SEG) 24.3 % 39-69 BAND NEUTROPHIL (test code=BAND) 0 % 0-10 LYMPHOCYTE (test code=LYMPH) 64.4 % 25-55 REACTIVE LYMPH (test code=RELYMPH) 0 % MONOCYTE (test code=MON) 5.2 % 0-10 EOSINOPHIL (test code=EOS) 1.7 % 0.0-5.0 BASOPHIL (test code=BASO) 0 % 0-1.0 METAMYELOCYTE (test code=META) 0.9 % 0-0 MYELOCYTE (test code=MYELO) 0 % 0.0-0.0 PROMYELOCYTE (test code=PROM) 0 % 0-0 PLATELET ESTIMATE (test code=PLTEST) ADEQUATE PLATELET MORPHOLOGY (test code=PLTMORPH) SIZE VARIABLE IMMATURE FORMS (test code=IMMAT) 3.5 % BASIC METABOLIC [id number] 05:52:00* Test Item Value Reference Range Comments SODIUM (test code=NA) 142 mmol/L 136-145 POTASSIUM (test code=K) 3.7 mmol/L 3.5-5.1 CHLORIDE (test code=CL) 107.0 mmol/L 98-107 CARBON DIOXIDE (test code=CO2) 24.0 mmol/L 21-32 ANION GAP (test code=GAP) 14.7 10-20 GLUCOSE (test code=GLU) 108 mg/dL 74-106 BLOOD UREA NITROGEN (test code=BUN) 23 mg/dL 7-18 GLOMERULAR FILTRATION RATE (test code=GFR) > 60 mL/min >=60 Estimated GFR by using Modified MDRD formula.Chronic kidney disease is defined as either kidney damageor GFR <60 mL/min/1.73 m2 for >3 months. CREATININE (test code=CREAT) 0.90 mg/dL 0.55-1.02 Note change in reference range due to change in reagent. BUN/CREATININE RATIO (test code=BUN/CREA) 25.2 10-20 CALCIUM (test code=CA) 8.1 mg/dL 8.5-10.1 BASIC METABOLIC [id number] 05:46:00* Test Item Value Reference Range Comments SODIUM (test code=NA) 142 mmol/L 136-145 POTASSIUM (test code=K) 3.7 mmol/L 3.5-5.1 CHLORIDE (test code=CL) 107.0 mmol/L 98-107 CARBON DIOXIDE (test code=CO2) mmol/L 21-32 ANION GAP (test code=GAP) 10-20 GLUCOSE (test code=GLU) mg/dL 74-106 BLOOD UREA NITROGEN (test code=BUN) mg/dL 7-18 GLOMERULAR FILTRATION RATE (test code=GFR) mL/min >=60 CREATININE (test code=CREAT) mg/dL 0.55-1.02 BUN/CREATININE RATIO (test code=BUN/CREA) 10-20 CALCIUM (test code=CA) mg/dL 8.5-10.1 CBC W/MANUAL [id number] 05:39:00* Test Item Value Reference Range Comments WHITE BLOOD CELL (test code=WBC) 29.7 K/mm3 4.5-12.5 RED BLOOD CELL (test code=RBC) 3.32 mill/mm3 3.7-5.2 HEMOGLOBIN (test code=HGB) 9.3 gram/dL 11.5-15.5 HEMATOCRIT (test code=HCT) 31.0 % 36.0-46.0 MEAN CELL VOLUME (test code=MCV) 93.4 fL 80-98 MEAN CELL HGB (test code=MCH) 28.0 picogram 27.0-33.0 MEAN CELL HGB CONCETRATION (test code=MCHC) 30.0 gram/dL 33.0-36.0 RED CELL DISTRIBUTION WIDTH (test code=RDW) 15.0 % 11.6-16.2 RED CELL DISTRIBUTION WIDTH SD (test code=RDW-SD) 51.7 fL 37.0-51.0 PLATELET COUNT (test code=PLT) 202 K/mm3 150-450 MEAN PLATELET VOLUME (test code=MPV) 10.6 fL 6.7-11.0 IMMATURE GRANULOCYTE % (test code=IG%) 0.7 % 0.0-5.0 NUCLEATED RBC % (test code=NRBC%) 0.0 % 0-0 NEUTROPHIL # (test code=NT#) 6.50 K/mm3 1.8-7.7 IMMATURE GRANULOCYTE # (test code=IG#) 0.21 x10 3/uL 0-0.03 LYMPHOCYTE # (test code=LY#) 21.18 K/mm3 1.0-5.0 MONOCYTE # (test code=MO#) 1.36 K/mm3 0-0.8 EOSINOPHIL # (test code=EO#) 0.39 K/mm3 0.0-0.5 BASOPHIL # (test code=BA#) 0.10 K/mm3 0.0-0.2 NUCLEATED RBC # (test code=NRBC#) 0.00 K/mm3 0.0-0.1 MANUAL DIFF REQUIRED (test code=MDIFF) YES STAIN ACCEPTABILITY (test code=STN ACCEPTABLE) TOTAL CELLS COUNTED (test code=TCC) #CELLS SEGMENTED NEUTROPHILS (test code=SEG) % 39-69 LYMPHOCYTE (test code=LYMPH) % 25-55 MONOCYTE (test code=MON) % 0-10 EOSINOPHIL (test code=EOS) % 0.0-5.0 CABOT RINGS (test code=CAB) MORPHOLOGY COMMENT (test code=MOC) PLATELET ESTIMATE (test code=PLTEST) PLATELET MORPHOLOGY (test code=PLTMORPH) CBC W/MANUAL [id number] 05:39:00* Test Item Value Reference Range Comments WHITE BLOOD CELL (test code=WBC) 29.7 K/mm3 4.5-12.5 RED BLOOD CELL (test code=RBC) 3.32 mill/mm3 3.7-5.2 HEMOGLOBIN (test code=HGB) 9.3 gram/dL 11.5-15.5 HEMATOCRIT (test code=HCT) 31.0 % 36.0-46.0 MEAN CELL VOLUME (test code=MCV) 93.4 fL 80-98 MEAN CELL HGB (test code=MCH) 28.0 picogram 27.0-33.0 MEAN CELL HGB CONCETRATION (test code=MCHC) 30.0 gram/dL 33.0-36.0 RED CELL DISTRIBUTION WIDTH (test code=RDW) 15.0 % 11.6-16.2 RED CELL DISTRIBUTION WIDTH SD (test code=RDW-SD) 51.7 fL 37.0-51.0 PLATELET COUNT (test code=PLT) 202 K/mm3 150-450 MEAN PLATELET VOLUME (test code=MPV) 10.6 fL 6.7-11.0 IMMATURE GRANULOCYTE % (test code=IG%) 0.7 % 0.0-5.0 NUCLEATED RBC % (test code=NRBC%) 0.0 % 0-0 NEUTROPHIL # (test code=NT#) 6.50 K/mm3 1.8-7.7 IMMATURE GRANULOCYTE # (test code=IG#) 0.21 x10 3/uL 0-0.03 LYMPHOCYTE # (test code=LY#) 21.18 K/mm3 1.0-5.0 MONOCYTE # (test code=MO#) 1.36 K/mm3 0-0.8 EOSINOPHIL # (test code=EO#) 0.39 K/mm3 0.0-0.5 BASOPHIL # (test code=BA#) 0.10 K/mm3 0.0-0.2 NUCLEATED RBC # (test code=NRBC#) 0.00 K/mm3 0.0-0.1 MANUAL DIFF REQUIRED (test code=MDIFF) YES STAIN ACCEPTABILITY (test code=STN ACCEPTABLE) TOTAL CELLS COUNTED (test code=TCC) #CELLS SEGMENTED NEUTROPHILS (test code=SEG) % 39-69 LYMPHOCYTE (test code=LYMPH) % 25-55 MONOCYTE (test code=MON) % 0-10 EOSINOPHIL (test code=EOS) % 0.0-5.0 CABOT RINGS (test code=CAB) MORPHOLOGY COMMENT (test code=MOC) PLATELET ESTIMATE (test code=PLTEST) PLATELET MORPHOLOGY (test code=PLTMORPH) CBC W/MANUAL [id number] 05:39:00* Test Item Value Reference Range Comments WHITE BLOOD CELL (test code=WBC) 29.7 K/mm3 4.5-12.5 RED BLOOD CELL (test code=RBC) 3.32 mill/mm3 3.7-5.2 HEMOGLOBIN (test code=HGB) 9.3 gram/dL 11.5-15.5 HEMATOCRIT (test code=HCT) 31.0 % 36.0-46.0 MEAN CELL VOLUME (test code=MCV) 93.4 fL 80-98 MEAN CELL HGB (test code=MCH) 28.0 picogram 27.0-33.0 MEAN CELL HGB CONCETRATION (test code=MCHC) 30.0 gram/dL 33.0-36.0 RED CELL DISTRIBUTION WIDTH (test code=RDW) 15.0 % 11.6-16.2 RED CELL DISTRIBUTION WIDTH SD (test code=RDW-SD) 51.7 fL 37.0-51.0 PLATELET COUNT (test code=PLT) 202 K/mm3 150-450 MEAN PLATELET VOLUME (test code=MPV) 10.6 fL 6.7-11.0 IMMATURE GRANULOCYTE % (test code=IG%) 0.7 % 0.0-5.0 NUCLEATED RBC % (test code=NRBC%) 0.0 % 0-0 NEUTROPHIL # (test code=NT#) 6.50 K/mm3 1.8-7.7 IMMATURE GRANULOCYTE # (test code=IG#) 0.21 x10 3/uL 0-0.03 LYMPHOCYTE # (test code=LY#) 21.18 K/mm3 1.0-5.0 MONOCYTE # (test code=MO#) 1.36 K/mm3 0-0.8 EOSINOPHIL # (test code=EO#) 0.39 K/mm3 0.0-0.5 BASOPHIL # (test code=BA#) 0.10 K/mm3 0.0-0.2 NUCLEATED RBC # (test code=NRBC#) 0.00 K/mm3 0.0-0.1 MANUAL DIFF REQUIRED (test code=MDIFF) YES STAIN ACCEPTABILITY (test code=STN ACCEPTABLE) TOTAL CELLS COUNTED (test code=TCC) #CELLS SEGMENTED NEUTROPHILS (test code=SEG) % 39-69 LYMPHOCYTE (test code=LYMPH) % 25-55 MONOCYTE (test code=MON) % 0-10 EOSINOPHIL (test code=EOS) % 0.0-5.0 MORPHOLOGY COMMENT (test code=MOC) PLATELET ESTIMATE (test code=PLTEST) PLATELET MORPHOLOGY (test code=PLTMORPH) CBC W/MANUAL [id number] 05:39:00* Test Item Value Reference Range Comments WHITE BLOOD CELL (test code=WBC) 29.7 K/mm3 4.5-12.5 RED BLOOD CELL (test code=RBC) 3.32 mill/mm3 3.7-5.2 HEMOGLOBIN (test code=HGB) 9.3 gram/dL 11.5-15.5 HEMATOCRIT (test code=HCT) 31.0 % 36.0-46.0 MEAN CELL VOLUME (test code=MCV) 93.4 fL 80-98 MEAN CELL HGB (test code=MCH) 28.0 picogram 27.0-33.0 MEAN CELL HGB CONCETRATION (test code=MCHC) 30.0 gram/dL 33.0-36.0 RED CELL DISTRIBUTION WIDTH (test code=RDW) 15.0 % 11.6-16.2 RED CELL DISTRIBUTION WIDTH SD (test code=RDW-SD) 51.7 fL 37.0-51.0 PLATELET COUNT (test code=PLT) 202 K/mm3 150-450 MEAN PLATELET VOLUME (test code=MPV) 10.6 fL 6.7-11.0 IMMATURE GRANULOCYTE % (test code=IG%) 0.7 % 0.0-5.0 NUCLEATED RBC % (test code=NRBC%) 0.0 % 0-0 NEUTROPHIL # (test code=NT#) 6.50 K/mm3 1.8-7.7 IMMATURE GRANULOCYTE # (test code=IG#) 0.21 x10 3/uL 0-0.03 LYMPHOCYTE # (test code=LY#) 21.18 K/mm3 1.0-5.0 MONOCYTE # (test code=MO#) 1.36 K/mm3 0-0.8 EOSINOPHIL # (test code=EO#) 0.39 K/mm3 0.0-0.5 BASOPHIL # (test code=BA#) 0.10 K/mm3 0.0-0.2 NUCLEATED RBC # (test code=NRBC#) 0.00 K/mm3 0.0-0.1 MANUAL DIFF REQUIRED (test code=MDIFF) YES STAIN ACCEPTABILITY (test code=STN ACCEPTABLE) TOTAL CELLS COUNTED (test code=TCC) #CELLS SEGMENTED NEUTROPHILS (test code=SEG) % 39-69 LYMPHOCYTE (test code=LYMPH) % 25-55 MONOCYTE (test code=MON) % 0-10 MORPHOLOGY COMMENT (test code=MOC) PLATELET ESTIMATE (test code=PLTEST) PLATELET MORPHOLOGY (test code=PLTMORPH) CBC W/MANUAL [id number] 05:39:00* Test Item Value Reference Range Comments WHITE BLOOD CELL (test code=WBC) 29.7 K/mm3 4.5-12.5 RED BLOOD CELL (test code=RBC) 3.32 mill/mm3 3.7-5.2 HEMOGLOBIN (test code=HGB) 9.3 gram/dL 11.5-15.5 HEMATOCRIT (test code=HCT) 31.0 % 36.0-46.0 MEAN CELL VOLUME (test code=MCV) 93.4 fL 80-98 MEAN CELL HGB (test code=MCH) 28.0 picogram 27.0-33.0 MEAN CELL HGB CONCETRATION (test code=MCHC) 30.0 gram/dL 33.0-36.0 RED CELL DISTRIBUTION WIDTH (test code=RDW) 15.0 % 11.6-16.2 RED CELL DISTRIBUTION WIDTH SD (test code=RDW-SD) 51.7 fL 37.0-51.0 PLATELET COUNT (test code=PLT) 202 K/mm3 150-450 MEAN PLATELET VOLUME (test code=MPV) 10.6 fL 6.7-11.0 IMMATURE GRANULOCYTE % (test code=IG%) 0.7 % 0.0-5.0 NUCLEATED RBC % (test code=NRBC%) 0.0 % 0-0 NEUTROPHIL # (test code=NT#) 6.50 K/mm3 1.8-7.7 IMMATURE GRANULOCYTE # (test code=IG#) 0.21 x10 3/uL 0-0.03 LYMPHOCYTE # (test code=LY#) 21.18 K/mm3 1.0-5.0 MONOCYTE # (test code=MO#) 1.36 K/mm3 0-0.8 EOSINOPHIL # (test code=EO#) 0.39 K/mm3 0.0-0.5 BASOPHIL # (test code=BA#) 0.10 K/mm3 0.0-0.2 NUCLEATED RBC # (test code=NRBC#) 0.00 K/mm3 0.0-0.1 MANUAL DIFF REQUIRED (test code=MDIFF) YES STAIN ACCEPTABILITY (test code=STN ACCEPTABLE) TOTAL CELLS COUNTED (test code=TCC) #CELLS SEGMENTED NEUTROPHILS (test code=SEG) % 39-69 LYMPHOCYTE (test code=LYMPH) % 25-55 MONOCYTE (test code=MON) % 0-10 EOSINOPHIL (test code=EOS) % 0.0-5.0 CABOT RINGS (test code=CAB) MORPHOLOGY COMMENT (test code=MOC) PLATELET ESTIMATE (test code=PLTEST) PLATELET MORPHOLOGY (test code=PLTMORPH) [id number] 21:06:00* Test Item Value Reference Range Comments GLUBED (test code=GLUBED) 202 mg/dL 74-106 Performed by certified soyfreeze operator at [facility] [id number] 17:04:00* Test Item Value Reference Range Comments GLUBED (test code=GLUBED) 148 mg/dL 74-106 Performed by certified soyfreeze operator at [facility] [id number] 12:35:00* Test Item Value Reference Range Comments GLUBED (test code=GLUBED) 96 mg/dL 74-106 Performed by certified soyfreeze operator at [facility] [id number] 08:28:00* Test Item Value Reference Range Comments GLUBED (test code=GLUBED) 89 mg/dL 74-106 Performed by certified soyfreeze operator at [facility] BASIC METABOLIC [id number] 06:21:00* Test Item Value Reference Range Comments SODIUM (test code=NA) 142 mmol/L 136-145 POTASSIUM (test code=K) 3.6 mmol/L 3.5-5.1 CHLORIDE (test code=CL) 109.0 mmol/L 98-107 CARBON DIOXIDE (test code=CO2) 21.0 mmol/L 21-32 ANION GAP (test code=GAP) 15.6 10-20 GLUCOSE (test code=GLU) 81 mg/dL 74-106 BLOOD UREA NITROGEN (test code=BUN) 23 mg/dL 7-18 RESULT VERIFIED BY REPEAT ANALYSIS GLOMERULAR FILTRATION RATE (test code=GFR) > 60 mL/min >=60 Estimated GFR by using Modified MDRD formula.Chronic kidney disease is defined as either kidney damageor GFR <60 mL/min/1.73 m2 for >3 months. CREATININE (test code=CREAT) 0.90 mg/dL 0.55-1.02 Note change in reference range due to change in reagent. BUN/CREATININE RATIO (test code=BUN/CREA) 25.6 10-20 CALCIUM (test code=CA) 7.9 mg/dL 8.5-10.1 CBC W/MANUAL [id number] 05:35:00* Test Item Value Reference Range Comments WHITE BLOOD CELL (test code=WBC) 25.1 K/mm3 4.5-12.5 RED BLOOD CELL (test code=RBC) 2.86 mill/mm3 3.7-5.2 HEMOGLOBIN (test code=HGB) 8.1 gram/dL 11.5-15.5 HEMATOCRIT (test code=HCT) 26.1 % 36.0-46.0 MEAN CELL VOLUME (test code=MCV) 91.3 fL 80-98 MEAN CELL HGB (test code=MCH) 28.3 picogram 27.0-33.0 MEAN CELL HGB CONCETRATION (test code=MCHC) 31.0 gram/dL 33.0-36.0 RED CELL DISTRIBUTION WIDTH (test code=RDW) 15.4 % 11.6-16.2 RED CELL DISTRIBUTION WIDTH SD (test code=RDW-SD) 51.2 fL 37.0-51.0 PLATELET COUNT (test code=PLT) 156 K/mm3 150-450 MEAN PLATELET VOLUME (test code=MPV) 10.2 fL 6.7-11.0 IMMATURE GRANULOCYTE % (test code=IG%) 0.6 % 0.0-5.0 NUCLEATED RBC % (test code=NRBC%) 0.0 % 0-0 NEUTROPHIL # (test code=NT#) 5.91 K/mm3 1.8-7.7 IMMATURE GRANULOCYTE # (test code=IG#) 0.15 x10 3/uL 0-0.03 LYMPHOCYTE # (test code=LY#) 17.60 K/mm3 1.0-5.0 MONOCYTE # (test code=MO#) 1.11 K/mm3 0-0.8 EOSINOPHIL # (test code=EO#) 0.28 K/mm3 0.0-0.5 BASOPHIL # (test code=BA#) 0.05 K/mm3 0.0-0.2 NUCLEATED RBC # (test code=NRBC#) 0.00 K/mm3 0.0-0.1 MANUAL DIFF REQUIRED (test code=MDIFF) YES STAIN ACCEPTABILITY (test code=STN ACCEPTABLE) STAIN ACCEPTABLE TOTAL CELLS COUNTED (test code=TCC) 117 #CELLS SEGMENTED NEUTROPHILS (test code=SEG) 22.2 % 39-69 BAND NEUTROPHIL (test code=BAND) 0 % 0-10 LYMPHOCYTE (test code=LYMPH) 74.4 % 25-55 REACTIVE LYMPH (test code=RELYMPH) 0 % MONOCYTE (test code=MON) 2.6 % 0-10 EOSINOPHIL (test code=EOS) 0.8 % 0.0-5.0 BASOPHIL (test code=BASO) 0 % 0-1.0 METAMYELOCYTE (test code=META) 0 % 0-0 MYELOCYTE (test code=MYELO) 0 % 0.0-0.0 PROMYELOCYTE (test code=PROM) 0 % 0-0 MORPHOLOGY COMMENT (test code=MOC) NORMAL PLATELET ESTIMATE (test code=PLTEST) ADEQUATE PLATELET MORPHOLOGY (test code=PLTMORPH) SIZE VARIABLE IMMATURE FORMS (test code=IMMAT) 0 % ACUTE HEPATITIS [id number] 05:14:00* Test Item Value Reference Range Comments AB HEPATITIS A IGM (test code=HAVMAB) Negative Negative AG HEPAT B SURF (test code=HBSAG) Negative Negative HEPATITIS B CORE ANTIBODY,IGM (test code=HBCMAB) Negative Negative AB HEPATITIS C (test code=HCVAB) <0.1 0.0-0.9 INFCE Result Units: s/co ratio Negative: < 0.8 Indeterminate: 0.8 - 0.9 Positive: > 0.9 The CDC recommends that a positive HCV antibody result be followed up with a HCV Nucleic Acid Amplification test ([id number]).Performed At: [facility] [id number] [place], [place] [id number] Richie Coughlin MD Ph:[phone] CBC W/MANUAL [id number] 05:05:00* Test Item Value Reference Range Comments WHITE BLOOD CELL (test code=WBC) 25.1 K/mm3 4.5-12.5 RED BLOOD CELL (test code=RBC) 2.86 mill/mm3 3.7-5.2 HEMOGLOBIN (test code=HGB) 8.1 gram/dL 11.5-15.5 HEMATOCRIT (test code=HCT) 26.1 % 36.0-46.0 MEAN CELL VOLUME (test code=MCV) 91.3 fL 80-98 MEAN CELL HGB (test code=MCH) 28.3 picogram 27.0-33.0 MEAN CELL HGB CONCETRATION (test code=MCHC) 31.0 gram/dL 33.0-36.0 RED CELL DISTRIBUTION WIDTH (test code=RDW) 15.4 % 11.6-16.2 RED CELL DISTRIBUTION WIDTH SD (test code=RDW-SD) 51.2 fL 37.0-51.0 PLATELET COUNT (test code=PLT) 156 K/mm3 150-450 MEAN PLATELET VOLUME (test code=MPV) 10.2 fL 6.7-11.0 IMMATURE GRANULOCYTE % (test code=IG%) 0.6 % 0.0-5.0 NUCLEATED RBC % (test code=NRBC%) 0.0 % 0-0 NEUTROPHIL # (test code=NT#) 5.91 K/mm3 1.8-7.7 IMMATURE GRANULOCYTE # (test code=IG#) 0.15 x10 3/uL 0-0.03 LYMPHOCYTE # (test code=LY#) 17.60 K/mm3 1.0-5.0 MONOCYTE # (test code=MO#) 1.11 K/mm3 0-0.8 EOSINOPHIL # (test code=EO#) 0.28 K/mm3 0.0-0.5 BASOPHIL # (test code=BA#) 0.05 K/mm3 0.0-0.2 NUCLEATED RBC # (test code=NRBC#) 0.00 K/mm3 0.0-0.1 MANUAL DIFF REQUIRED (test code=MDIFF) YES STAIN ACCEPTABILITY (test code=STN ACCEPTABLE) TOTAL CELLS COUNTED (test code=TCC) #CELLS SEGMENTED NEUTROPHILS (test code=SEG) % 39-69 LYMPHOCYTE (test code=LYMPH) % 25-55 MONOCYTE (test code=MON) % 0-10 EOSINOPHIL (test code=EOS) % 0.0-5.0 CABOT RINGS (test code=CAB) MORPHOLOGY COMMENT (test code=MOC) PLATELET ESTIMATE (test code=PLTEST) PLATELET MORPHOLOGY (test code=PLTMORPH) CBC W/MANUAL [id number] 05:05:00* Test Item Value Reference Range Comments WHITE BLOOD CELL (test code=WBC) 25.1 K/mm3 4.5-12.5 RED BLOOD CELL (test code=RBC) 2.86 mill/mm3 3.7-5.2 HEMOGLOBIN (test code=HGB) 8.1 gram/dL 11.5-15.5 HEMATOCRIT (test code=HCT) 26.1 % 36.0-46.0 MEAN CELL VOLUME (test code=MCV) 91.3 fL 80-98 MEAN CELL HGB (test code=MCH) 28.3 picogram 27.0-33.0 MEAN CELL HGB CONCETRATION (test code=MCHC) 31.0 gram/dL 33.0-36.0 RED CELL DISTRIBUTION WIDTH (test code=RDW) 15.4 % 11.6-16.2 RED CELL DISTRIBUTION WIDTH SD (test code=RDW-SD) 51.2 fL 37.0-51.0 PLATELET COUNT (test code=PLT) 156 K/mm3 150-450 MEAN PLATELET VOLUME (test code=MPV) 10.2 fL 6.7-11.0 IMMATURE GRANULOCYTE % (test code=IG%) 0.6 % 0.0-5.0 NUCLEATED RBC % (test code=NRBC%) 0.0 % 0-0 NEUTROPHIL # (test code=NT#) 5.91 K/mm3 1.8-7.7 IMMATURE GRANULOCYTE # (test code=IG#) 0.15 x10 3/uL 0-0.03 LYMPHOCYTE # (test code=LY#) 17.60 K/mm3 1.0-5.0 MONOCYTE # (test code=MO#) 1.11 K/mm3 0-0.8 EOSINOPHIL # (test code=EO#) 0.28 K/mm3 0.0-0.5 BASOPHIL # (test code=BA#) 0.05 K/mm3 0.0-0.2 NUCLEATED RBC # (test code=NRBC#) 0.00 K/mm3 0.0-0.1 MANUAL DIFF REQUIRED (test code=MDIFF) YES STAIN ACCEPTABILITY (test code=STN ACCEPTABLE) TOTAL CELLS COUNTED (test code=TCC) #CELLS SEGMENTED NEUTROPHILS (test code=SEG) % 39-69 LYMPHOCYTE (test code=LYMPH) % 25-55 MONOCYTE (test code=MON) % 0-10 EOSINOPHIL (test code=EOS) % 0.0-5.0 CABOT RINGS (test code=CAB) MORPHOLOGY COMMENT (test code=MOC) PLATELET ESTIMATE (test code=PLTEST) PLATELET MORPHOLOGY (test code=PLTMORPH) CBC W/MANUAL [id number] 05:05:00* Test Item Value Reference Range Comments WHITE BLOOD CELL (test code=WBC) 25.1 K/mm3 4.5-12.5 RED BLOOD CELL (test code=RBC) 2.86 mill/mm3 3.7-5.2 HEMOGLOBIN (test code=HGB) 8.1 gram/dL 11.5-15.5 HEMATOCRIT (test code=HCT) 26.1 % 36.0-46.0 MEAN CELL VOLUME (test code=MCV) 91.3 fL 80-98 MEAN CELL HGB (test code=MCH) 28.3 picogram 27.0-33.0 MEAN CELL HGB CONCETRATION (test code=MCHC) 31.0 gram/dL 33.0-36.0 RED CELL DISTRIBUTION WIDTH (test code=RDW) 15.4 % 11.6-16.2 RED CELL DISTRIBUTION WIDTH SD (test code=RDW-SD) 51.2 fL 37.0-51.0 PLATELET COUNT (test code=PLT) 156 K/mm3 150-450 MEAN PLATELET VOLUME (test code=MPV) 10.2 fL 6.7-11.0 IMMATURE GRANULOCYTE % (test code=IG%) 0.6 % 0.0-5.0 NUCLEATED RBC % (test code=NRBC%) 0.0 % 0-0 NEUTROPHIL # (test code=NT#) 5.91 K/mm3 1.8-7.7 IMMATURE GRANULOCYTE # (test code=IG#) 0.15 x10 3/uL 0-0.03 LYMPHOCYTE # (test code=LY#) 17.60 K/mm3 1.0-5.0 MONOCYTE # (test code=MO#) 1.11 K/mm3 0-0.8 EOSINOPHIL # (test code=EO#) 0.28 K/mm3 0.0-0.5 BASOPHIL # (test code=BA#) 0.05 K/mm3 0.0-0.2 NUCLEATED RBC # (test code=NRBC#) 0.00 K/mm3 0.0-0.1 MANUAL DIFF REQUIRED (test code=MDIFF) YES STAIN ACCEPTABILITY (test code=STN ACCEPTABLE) TOTAL CELLS COUNTED (test code=TCC) #CELLS SEGMENTED NEUTROPHILS (test code=SEG) % 39-69 LYMPHOCYTE (test code=LYMPH) % 25-55 MONOCYTE (test code=MON) % 0-10 EOSINOPHIL (test code=EOS) % 0.0-5.0 MORPHOLOGY COMMENT (test code=MOC) PLATELET ESTIMATE (test code=PLTEST) PLATELET MORPHOLOGY (test code=PLTMORPH) CBC W/MANUAL [id number] 05:05:00* Test Item Value Reference Range Comments WHITE BLOOD CELL (test code=WBC) 25.1 K/mm3 4.5-12.5 RED BLOOD CELL (test code=RBC) 2.86 mill/mm3 3.7-5.2 HEMOGLOBIN (test code=HGB) 8.1 gram/dL 11.5-15.5 HEMATOCRIT (test code=HCT) 26.1 % 36.0-46.0 MEAN CELL VOLUME (test code=MCV) 91.3 fL 80-98 MEAN CELL HGB (test code=MCH) 28.3 picogram 27.0-33.0 MEAN CELL HGB CONCETRATION (test code=MCHC) 31.0 gram/dL 33.0-36.0 RED CELL DISTRIBUTION WIDTH (test code=RDW) 15.4 % 11.6-16.2 RED CELL DISTRIBUTION WIDTH SD (test code=RDW-SD) 51.2 fL 37.0-51.0 PLATELET COUNT (test code=PLT) 156 K/mm3 150-450 MEAN PLATELET VOLUME (test code=MPV) 10.2 fL 6.7-11.0 IMMATURE GRANULOCYTE % (test code=IG%) 0.6 % 0.0-5.0 NUCLEATED RBC % (test code=NRBC%) 0.0 % 0-0 NEUTROPHIL # (test code=NT#) 5.91 K/mm3 1.8-7.7 IMMATURE GRANULOCYTE # (test code=IG#) 0.15 x10 3/uL 0-0.03 LYMPHOCYTE # (test code=LY#) 17.60 K/mm3 1.0-5.0 MONOCYTE # (test code=MO#) 1.11 K/mm3 0-0.8 EOSINOPHIL # (test code=EO#) 0.28 K/mm3 0.0-0.5 BASOPHIL # (test code=BA#) 0.05 K/mm3 0.0-0.2 NUCLEATED RBC # (test code=NRBC#) 0.00 K/mm3 0.0-0.1 MANUAL DIFF REQUIRED (test code=MDIFF) YES STAIN ACCEPTABILITY (test code=STN ACCEPTABLE) TOTAL CELLS COUNTED (test code=TCC) #CELLS SEGMENTED NEUTROPHILS (test code=SEG) % 39-69 LYMPHOCYTE (test code=LYMPH) % 25-55 MONOCYTE (test code=MON) % 0-10 MORPHOLOGY COMMENT (test code=MOC) PLATELET ESTIMATE (test code=PLTEST) PLATELET MORPHOLOGY (test code=PLTMORPH) CBC W/MANUAL [id number] 05:05:00* Test Item Value Reference Range Comments WHITE BLOOD CELL (test code=WBC) 25.1 K/mm3 4.5-12.5 RED BLOOD CELL (test code=RBC) 2.86 mill/mm3 3.7-5.2 HEMOGLOBIN (test code=HGB) 8.1 gram/dL 11.5-15.5 HEMATOCRIT (test code=HCT) 26.1 % 36.0-46.0 MEAN CELL VOLUME (test code=MCV) 91.3 fL 80-98 MEAN CELL HGB (test code=MCH) 28.3 picogram 27.0-33.0 MEAN CELL HGB CONCETRATION (test code=MCHC) 31.0 gram/dL 33.0-36.0 RED CELL DISTRIBUTION WIDTH (test code=RDW) 15.4 % 11.6-16.2 RED CELL DISTRIBUTION WIDTH SD (test code=RDW-SD) 51.2 fL 37.0-51.0 PLATELET COUNT (test code=PLT) 156 K/mm3 150-450 MEAN PLATELET VOLUME (test code=MPV) 10.2 fL 6.7-11.0 IMMATURE GRANULOCYTE % (test code=IG%) 0.6 % 0.0-5.0 NUCLEATED RBC % (test code=NRBC%) 0.0 % 0-0 NEUTROPHIL # (test code=NT#) 5.91 K/mm3 1.8-7.7 IMMATURE GRANULOCYTE # (test code=IG#) 0.15 x10 3/uL 0-0.03 LYMPHOCYTE # (test code=LY#) 17.60 K/mm3 1.0-5.0 MONOCYTE # (test code=MO#) 1.11 K/mm3 0-0.8 EOSINOPHIL # (test code=EO#) 0.28 K/mm3 0.0-0.5 BASOPHIL # (test code=BA#) 0.05 K/mm3 0.0-0.2 NUCLEATED RBC # (test code=NRBC#) 0.00 K/mm3 0.0-0.1 MANUAL DIFF REQUIRED (test code=MDIFF) YES STAIN ACCEPTABILITY (test code=STN ACCEPTABLE) TOTAL CELLS COUNTED (test code=TCC) #CELLS SEGMENTED NEUTROPHILS (test code=SEG) % 39-69 LYMPHOCYTE (test code=LYMPH) % 25-55 MONOCYTE (test code=MON) % 0-10 EOSINOPHIL (test code=EOS) % 0.0-5.0 CABOT RINGS (test code=CAB) MORPHOLOGY COMMENT (test code=MOC) PLATELET ESTIMATE (test code=PLTEST) PLATELET MORPHOLOGY (test code=PLTMORPH) [id number] 20:39:00* Test Item Value Reference Range Comments GLUBED (test code=GLUBED) 162 mg/dL 74-106 Performed by certified soyfreeze operator at [facility] [id number] 17:30:00* Test Item Value Reference Range Comments GLUBED (test code=GLUBED) 114 mg/dL 74-106 Performed by certified soyfreeze operator at [facility] [id number] 15:06:00* Test Item Value Reference Range Comments GLUBED (test code=GLUBED) 148 mg/dL 74-106 Performed by certified soyfreeze operator at [facility] [id number] 09:28:00* Test Item Value Reference Range Comments GLUBED (test code=GLUBED) 136 mg/dL 74-106 Performed by certified soyfreeze operator at [facility] BASIC METABOLIC [id number] 06:36:00* Test Item Value Reference Range Comments SODIUM (test code=NA) 141 mmol/L 136-145 POTASSIUM (test code=K) 3.8 mmol/L 3.5-5.1 CHLORIDE (test code=CL) 111.0 mmol/L 98-107 CARBON DIOXIDE (test code=CO2) 21.0 mmol/L 21-32 ANION GAP (test code=GAP) 12.8 10-20 GLUCOSE (test code=GLU) 131 mg/dL 74-106 BLOOD UREA NITROGEN (test code=BUN) 30 mg/dL 7-18 GLOMERULAR FILTRATION RATE (test code=GFR) > 60 mL/min >=60 Estimated GFR by using Modified MDRD formula.Chronic kidney disease is defined as either kidney damageor GFR <60 mL/min/1.73 m2 for >3 months. CREATININE (test code=CREAT) 0.90 mg/dL 0.55-1.02 Note change in reference range due to change in reagent. BUN/CREATININE RATIO (test code=BUN/CREA) 32.5 10-20 CALCIUM (test code=CA) 7.9 mg/dL 8.5-10.1 BASIC METABOLIC [id number] 06:35:00* Test Item Value Reference Range Comments SODIUM (test code=NA) 141 mmol/L 136-145 POTASSIUM (test code=K) 3.8 mmol/L 3.5-5.1 CHLORIDE (test code=CL) 111.0 mmol/L 98-107 CARBON DIOXIDE (test code=CO2) mmol/L 21-32 ANION GAP (test code=GAP) 10-20 GLUCOSE (test code=GLU) mg/dL 74-106 BLOOD UREA NITROGEN (test code=BUN) mg/dL 7-18 GLOMERULAR FILTRATION RATE (test code=GFR) mL/min >=60 CREATININE (test code=CREAT) mg/dL 0.55-1.02 BUN/CREATININE RATIO (test code=BUN/CREA) 10-20 CALCIUM (test code=CA) mg/dL 8.5-10.1 CBC W/MANUAL [id number] 06:33:00* Test Item Value Reference Range Comments WHITE BLOOD CELL (test code=WBC) 33.4 K/mm3 4.5-12.5 RESULT VERIFIED BY REPEAT ANALYSIS RED BLOOD CELL (test code=RBC) 3.22 mill/mm3 3.7-5.2 HEMOGLOBIN (test code=HGB) 9.0 gram/dL 11.5-15.5 HEMATOCRIT (test code=HCT) 29.2 % 36.0-46.0 MEAN CELL VOLUME (test code=MCV) 90.7 fL 80-98 MEAN CELL HGB (test code=MCH) 28.0 picogram 27.0-33.0 MEAN CELL HGB CONCETRATION (test code=MCHC) 30.8 gram/dL 33.0-36.0 RED CELL DISTRIBUTION WIDTH (test code=RDW) 15.4 % 11.6-16.2 RED CELL DISTRIBUTION WIDTH SD (test code=RDW-SD) 50.2 fL 37.0-51.0 PLATELET COUNT (test code=PLT) 171 K/mm3 150-450 MEAN PLATELET VOLUME (test code=MPV) 10.1 fL 6.7-11.0 IMMATURE GRANULOCYTE % (test code=IG%) 0.7 % 0.0-5.0 NUCLEATED RBC % (test code=NRBC%) 0.1 % 0-0 NEUTROPHIL # (test code=NT#) 6.06 K/mm3 1.8-7.7 IMMATURE GRANULOCYTE # (test code=IG#) 0.24 x10 3/uL 0-0.03 LYMPHOCYTE # (test code=LY#) 25.56 K/mm3 1.0-5.0 MONOCYTE # (test code=MO#) 1.21 K/mm3 0-0.8 EOSINOPHIL # (test code=EO#) 0.20 K/mm3 0.0-0.5 BASOPHIL # (test code=BA#) 0.11 K/mm3 0.0-0.2 NUCLEATED RBC # (test code=NRBC#) 0.02 K/mm3 0.0-0.1 MANUAL DIFF REQUIRED (test code=MDIFF) YES STAIN ACCEPTABILITY (test code=STN ACCEPTABLE) STAIN ACCEPTABLE TOTAL CELLS COUNTED (test code=TCC) 115 #CELLS SEGMENTED NEUTROPHILS (test code=SEG) 20.0 % 39-69 BAND NEUTROPHIL (test code=BAND) 0 % 0-10 LYMPHOCYTE (test code=LYMPH) 73.9 % 25-55 REACTIVE LYMPH (test code=RELYMPH) 0 % MONOCYTE (test code=MON) 5.2 % 0-10 EOSINOPHIL (test code=EOS) 0.9 % 0.0-5.0 BASOPHIL (test code=BASO) 0 % 0-1.0 METAMYELOCYTE (test code=META) 0 % 0-0 MYELOCYTE (test code=MYELO) 0 % 0.0-0.0 PROMYELOCYTE (test code=PROM) 0 % 0-0 ANISOCYTOSIS (test code=ANISO) 1+ MICROCYTOSIS (test code=MICR) 1+ PLATELET ESTIMATE (test code=PLTEST) ADEQUATE PLATELET MORPHOLOGY (test code=PLTMORPH) NORMAL IMMATURE FORMS (test code=IMMAT) 0 % CBC W/MANUAL [id number] 06:02:00* Test Item Value Reference Range Comments WHITE BLOOD CELL (test code=WBC) 33.4 K/mm3 4.5-12.5 RESULT VERIFIED BY REPEAT ANALYSIS RED BLOOD CELL (test code=RBC) 3.22 mill/mm3 3.7-5.2 HEMOGLOBIN (test code=HGB) 9.0 gram/dL 11.5-15.5 HEMATOCRIT (test code=HCT) 29.2 % 36.0-46.0 MEAN CELL VOLUME (test code=MCV) 90.7 fL 80-98 MEAN CELL HGB (test code=MCH) 28.0 picogram 27.0-33.0 MEAN CELL HGB CONCETRATION (test code=MCHC) 30.8 gram/dL 33.0-36.0 RED CELL DISTRIBUTION WIDTH (test code=RDW) 15.4 % 11.6-16.2 RED CELL DISTRIBUTION WIDTH SD (test code=RDW-SD) 50.2 fL 37.0-51.0 PLATELET COUNT (test code=PLT) 171 K/mm3 150-450 MEAN PLATELET VOLUME (test code=MPV) 10.1 fL 6.7-11.0 IMMATURE GRANULOCYTE % (test code=IG%) 0.7 % 0.0-5.0 NUCLEATED RBC % (test code=NRBC%) 0.1 % 0-0 NEUTROPHIL # (test code=NT#) 6.06 K/mm3 1.8-7.7 IMMATURE GRANULOCYTE # (test code=IG#) 0.24 x10 3/uL 0-0.03 LYMPHOCYTE # (test code=LY#) 25.56 K/mm3 1.0-5.0 MONOCYTE # (test code=MO#) 1.21 K/mm3 0-0.8 EOSINOPHIL # (test code=EO#) 0.20 K/mm3 0.0-0.5 BASOPHIL # (test code=BA#) 0.11 K/mm3 0.0-0.2 NUCLEATED RBC # (test code=NRBC#) 0.02 K/mm3 0.0-0.1 MANUAL DIFF REQUIRED (test code=MDIFF) YES STAIN ACCEPTABILITY (test code=STN ACCEPTABLE) TOTAL CELLS COUNTED (test code=TCC) #CELLS SEGMENTED NEUTROPHILS (test code=SEG) % 39-69 LYMPHOCYTE (test code=LYMPH) % 25-55 MONOCYTE (test code=MON) % 0-10 EOSINOPHIL (test code=EOS) % 0.0-5.0 CABOT RINGS (test code=CAB) MORPHOLOGY COMMENT (test code=MOC) PLATELET ESTIMATE (test code=PLTEST) PLATELET MORPHOLOGY (test code=PLTMORPH) CBC W/MANUAL [id number] 06:02:00* Test Item Value Reference Range Comments WHITE BLOOD CELL (test code=WBC) 33.4 K/mm3 4.5-12.5 RESULT VERIFIED BY REPEAT ANALYSIS RED BLOOD CELL (test code=RBC) 3.22 mill/mm3 3.7-5.2 HEMOGLOBIN (test code=HGB) 9.0 gram/dL 11.5-15.5 HEMATOCRIT (test code=HCT) 29.2 % 36.0-46.0 MEAN CELL VOLUME (test code=MCV) 90.7 fL 80-98 MEAN CELL HGB (test code=MCH) 28.0 picogram 27.0-33.0 MEAN CELL HGB CONCETRATION (test code=MCHC) 30.8 gram/dL 33.0-36.0 RED CELL DISTRIBUTION WIDTH (test code=RDW) 15.4 % 11.6-16.2 RED CELL DISTRIBUTION WIDTH SD (test code=RDW-SD) 50.2 fL 37.0-51.0 PLATELET COUNT (test code=PLT) 171 K/mm3 150-450 MEAN PLATELET VOLUME (test code=MPV) 10.1 fL 6.7-11.0 IMMATURE GRANULOCYTE % (test code=IG%) 0.7 % 0.0-5.0 NUCLEATED RBC % (test code=NRBC%) 0.1 % 0-0 NEUTROPHIL # (test code=NT#) 6.06 K/mm3 1.8-7.7 IMMATURE GRANULOCYTE # (test code=IG#) 0.24 x10 3/uL 0-0.03 LYMPHOCYTE # (test code=LY#) 25.56 K/mm3 1.0-5.0 MONOCYTE # (test code=MO#) 1.21 K/mm3 0-0.8 EOSINOPHIL # (test code=EO#) 0.20 K/mm3 0.0-0.5 BASOPHIL # (test code=BA#) 0.11 K/mm3 0.0-0.2 NUCLEATED RBC # (test code=NRBC#) 0.02 K/mm3 0.0-0.1 MANUAL DIFF REQUIRED (test code=MDIFF) YES STAIN ACCEPTABILITY (test code=STN ACCEPTABLE) TOTAL CELLS COUNTED (test code=TCC) #CELLS SEGMENTED NEUTROPHILS (test code=SEG) % 39-69 LYMPHOCYTE (test code=LYMPH) % 25-55 MONOCYTE (test code=MON) % 0-10 EOSINOPHIL (test code=EOS) % 0.0-5.0 CABOT RINGS (test code=CAB) MORPHOLOGY COMMENT (test code=MOC) PLATELET ESTIMATE (test code=PLTEST) PLATELET MORPHOLOGY (test code=PLTMORPH) CBC W/MANUAL [id number] 06:02:00* Test Item Value Reference Range Comments WHITE BLOOD CELL (test code=WBC) 33.4 K/mm3 4.5-12.5 RESULT VERIFIED BY REPEAT ANALYSIS RED BLOOD CELL (test code=RBC) 3.22 mill/mm3 3.7-5.2 HEMOGLOBIN (test code=HGB) 9.0 gram/dL 11.5-15.5 HEMATOCRIT (test code=HCT) 29.2 % 36.0-46.0 MEAN CELL VOLUME (test code=MCV) 90.7 fL 80-98 MEAN CELL HGB (test code=MCH) 28.0 picogram 27.0-33.0 MEAN CELL HGB CONCETRATION (test code=MCHC) 30.8 gram/dL 33.0-36.0 RED CELL DISTRIBUTION WIDTH (test code=RDW) 15.4 % 11.6-16.2 RED CELL DISTRIBUTION WIDTH SD (test code=RDW-SD) 50.2 fL 37.0-51.0 PLATELET COUNT (test code=PLT) 171 K/mm3 150-450 MEAN PLATELET VOLUME (test code=MPV) 10.1 fL 6.7-11.0 IMMATURE GRANULOCYTE % (test code=IG%) 0.7 % 0.0-5.0 NUCLEATED RBC % (test code=NRBC%) 0.1 % 0-0 NEUTROPHIL # (test code=NT#) 6.06 K/mm3 1.8-7.7 IMMATURE GRANULOCYTE # (test code=IG#) 0.24 x10 3/uL 0-0.03 LYMPHOCYTE # (test code=LY#) 25.56 K/mm3 1.0-5.0 MONOCYTE # (test code=MO#) 1.21 K/mm3 0-0.8 EOSINOPHIL # (test code=EO#) 0.20 K/mm3 0.0-0.5 BASOPHIL # (test code=BA#) 0.11 K/mm3 0.0-0.2 NUCLEATED RBC # (test code=NRBC#) 0.02 K/mm3 0.0-0.1 MANUAL DIFF REQUIRED (test code=MDIFF) YES STAIN ACCEPTABILITY (test code=STN ACCEPTABLE) TOTAL CELLS COUNTED (test code=TCC) #CELLS SEGMENTED NEUTROPHILS (test code=SEG) % 39-69 LYMPHOCYTE (test code=LYMPH) % 25-55 MONOCYTE (test code=MON) % 0-10 EOSINOPHIL (test code=EOS) % 0.0-5.0 MORPHOLOGY COMMENT (test code=MOC) PLATELET ESTIMATE (test code=PLTEST) PLATELET MORPHOLOGY (test code=PLTMORPH) CBC W/MANUAL [id number] 06:02:00* Test Item Value Reference Range Comments WHITE BLOOD CELL (test code=WBC) 33.4 K/mm3 4.5-12.5 RESULT VERIFIED BY REPEAT ANALYSIS RED BLOOD CELL (test code=RBC) 3.22 mill/mm3 3.7-5.2 HEMOGLOBIN (test code=HGB) 9.0 gram/dL 11.5-15.5 HEMATOCRIT (test code=HCT) 29.2 % 36.0-46.0 MEAN CELL VOLUME (test code=MCV) 90.7 fL 80-98 MEAN CELL HGB (test code=MCH) 28.0 picogram 27.0-33.0 MEAN CELL HGB CONCETRATION (test code=MCHC) 30.8 gram/dL 33.0-36.0 RED CELL DISTRIBUTION WIDTH (test code=RDW) 15.4 % 11.6-16.2 RED CELL DISTRIBUTION WIDTH SD (test code=RDW-SD) 50.2 fL 37.0-51.0 PLATELET COUNT (test code=PLT) 171 K/mm3 150-450 MEAN PLATELET VOLUME (test code=MPV) 10.1 fL 6.7-11.0 IMMATURE GRANULOCYTE % (test code=IG%) 0.7 % 0.0-5.0 NUCLEATED RBC % (test code=NRBC%) 0.1 % 0-0 NEUTROPHIL # (test code=NT#) 6.06 K/mm3 1.8-7.7 IMMATURE GRANULOCYTE # (test code=IG#) 0.24 x10 3/uL 0-0.03 LYMPHOCYTE # (test code=LY#) 25.56 K/mm3 1.0-5.0 MONOCYTE # (test code=MO#) 1.21 K/mm3 0-0.8 EOSINOPHIL # (test code=EO#) 0.20 K/mm3 0.0-0.5 BASOPHIL # (test code=BA#) 0.11 K/mm3 0.0-0.2 NUCLEATED RBC # (test code=NRBC#) 0.02 K/mm3 0.0-0.1 MANUAL DIFF REQUIRED (test code=MDIFF) YES STAIN ACCEPTABILITY (test code=STN ACCEPTABLE) TOTAL CELLS COUNTED (test code=TCC) #CELLS SEGMENTED NEUTROPHILS (test code=SEG) % 39-69 LYMPHOCYTE (test code=LYMPH) % 25-55 MONOCYTE (test code=MON) % 0-10 MORPHOLOGY COMMENT (test code=MOC) PLATELET ESTIMATE (test code=PLTEST) PLATELET MORPHOLOGY (test code=PLTMORPH) CBC W/MANUAL [id number] 06:02:00* Test Item Value Reference Range Comments WHITE BLOOD CELL (test code=WBC) 33.4 K/mm3 4.5-12.5 RESULT VERIFIED BY REPEAT ANALYSIS RED BLOOD CELL (test code=RBC) 3.22 mill/mm3 3.7-5.2 HEMOGLOBIN (test code=HGB) 9.0 gram/dL 11.5-15.5 HEMATOCRIT (test code=HCT) 29.2 % 36.0-46.0 MEAN CELL VOLUME (test code=MCV) 90.7 fL 80-98 MEAN CELL HGB (test code=MCH) 28.0 picogram 27.0-33.0 MEAN CELL HGB CONCETRATION (test code=MCHC) 30.8 gram/dL 33.0-36.0 RED CELL DISTRIBUTION WIDTH (test code=RDW) 15.4 % 11.6-16.2 RED CELL DISTRIBUTION WIDTH SD (test code=RDW-SD) 50.2 fL 37.0-51.0 PLATELET COUNT (test code=PLT) 171 K/mm3 150-450 MEAN PLATELET VOLUME (test code=MPV) 10.1 fL 6.7-11.0 IMMATURE GRANULOCYTE % (test code=IG%) 0.7 % 0.0-5.0 NUCLEATED RBC % (test code=NRBC%) 0.1 % 0-0 NEUTROPHIL # (test code=NT#) 6.06 K/mm3 1.8-7.7 IMMATURE GRANULOCYTE # (test code=IG#) 0.24 x10 3/uL 0-0.03 LYMPHOCYTE # (test code=LY#) 25.56 K/mm3 1.0-5.0 MONOCYTE # (test code=MO#) 1.21 K/mm3 0-0.8 EOSINOPHIL # (test code=EO#) 0.20 K/mm3 0.0-0.5 BASOPHIL # (test code=BA#) 0.11 K/mm3 0.0-0.2 NUCLEATED RBC # (test code=NRBC#) 0.02 K/mm3 0.0-0.1 MANUAL DIFF REQUIRED (test code=MDIFF) YES STAIN ACCEPTABILITY (test code=STN ACCEPTABLE) TOTAL CELLS COUNTED (test code=TCC) #CELLS SEGMENTED NEUTROPHILS (test code=SEG) % 39-69 LYMPHOCYTE (test code=LYMPH) % 25-55 MONOCYTE (test code=MON) % 0-10 EOSINOPHIL (test code=EOS) % 0.0-5.0 CABOT RINGS (test code=CAB) MORPHOLOGY COMMENT (test code=MOC) PLATELET ESTIMATE (test code=PLTEST) PLATELET MORPHOLOGY (test code=PLTMORPH) [id number] 21:47:00* Test Item Value Reference Range Comments GLUBED (test code=GLUBED) 127 mg/dL 74-106 Performed by certified soyfreeze operator at [facility] - MRI BRAIN W WO [id number] 16:52:00 FAX: Chasidy Diaz [phone] [place]: B St: ADM FAX: Harmony James MD FAX: Carlotta Rocael Clayton III [phone] Name: JACINTO NEVAREZ [facility] : 1950 Age/S: 68/F [address] [facility] Unit #: [id number] Loc: V.3019 [place] [address] Phys: Chasidy Knutson MD Acct: [id number] Dis Date: Status: ADM IN PH ONE #: [phone] Exam Date: 12/06/2018 1642 FAX #: [phone] Reason: AMS, H/o untreated NHL. EXAMS: CPT CODE: [id number] MR I BRAIN W WO CONT [id number] REASON FOR EXA M: AMS, H/o untreated NHL. Exam Order Date: 12/06/2018 2:25 PM Attending M.D.: Chasidy Knutson MD Procedure: - M RI BRAIN W WO CONT Comparison: FINDINGS: Axial, sagi ttal, and coronal images of the head were obtained using T1, T2 weighted, inversion recovery, and gradient echo sequences. The diffusion images are within normal limits without] abnormal signal intensity to suggest acute infarct. IV gadolinium was given. The sagittal images show n ormal pituitary, cerebellum, and brain stem. No evidence of suprasellar ma ss. The axial T2, inversion recovery, and gradient echo images ezequiel w no evidence of intra or extra axial mass. The ventricles, cisterns, and sulci are unremarkable. No evidence of hemorrhage. The cereb ellar pontine angle area is within normal limits. There is no evidence of mass noted. The axial T1 images show no evidence of mass. No obvio us evidence of abnormal enhancement on this limited suboptimal contrast ex am (there is minimal enhancement of the brain parenchyma probably due to extravasation at the IV site) Chronic infarct in the left bas al ganglia The coronal images show normal optic chiasm. IMPRESSION: Chronic left basal ganglia infarct. Limited examination due to motion and suboptimal contrast enhancement. No acute intracranial findings at 1652 Reported and signed by: Randolph Muniz M.D. PAGE 1 Signed Report (CONTINUED) FAX: Chasidy Diaz [phone] [place]: St: ADM FAX: Flakito James MD FAX: Rocael Rodas III [phone] ---- Basil e: JACINTO NEVAREZ [facility] : Age/S: 68/F [address] [facility] Unit #: [id number] Loc: V.3019 [place] [address] Phys: Damari Knutson MD Acct: [id number] Dis Juan Jose e: Status: ADM IN PHONE #: Exam Date: 12/06/2018 1642 FAX #: Reason: AMS, H/o untreated NHL. EXAMS: CPT CODE: [id number] MRI BRAIN W WO C ONT [id number] <Continued> CC: Chasidy Knutson MD; Harmony Ring MD; Rocael Clayton M.D. Technologist: RT ZULMA - MRI Trnscrd Date/Time/By: 12/06/2018 (776) : By: LuliL Orig Print D/T: S: 12/06/2018 (2656) PAGE 2 Signed Report [id number] 12:59:00* Test Item Value Reference Range Comments GLUBED (test code=GLUBED) 261 mg/dL 74-106 Performed by certified soyfreeze operator at [facility] [id number] 12:59:00* Test Item Value Reference Range Comments GLUBED (test code=GLUBED) 217 mg/dL 74-106 Performed by certified soyfreeze operator at [facility] UR NA,[id number] 08:40:00* Test Item Value Reference Range Comments UR NA,RANDOM (test code=LEROY) 66 mmol/L 20-110 URINE K, [id number] 08:40:00* Test Item Value Reference Range Comments URINE K, RANDOM (test code=KU) 17.0 mmol/L 12-75 UR CHLORIDE [id number] 08:40:00* Test Item Value Reference Range Comments UR CHLORIDE RANDOM (test code=CLU) 53 mEq/L [id number] 07:27:00* Test Item Value Reference Range Comments HAPTOGLOBIN (test code=HAPT) 173 mg/dL 34-200 Performed At: [facility] [id number] Sanjai MD Ph:[phone] SPECIMEN COMMENTS: Add on to previous labsCBC W/MANUAL [id number] 05:49:00* Test Item Value Reference Range Comments WHITE BLOOD CELL (test code=WBC) 51.4 K/mm3 4.5-12.5 Has "Path Review" been performed on patient's currentadmission?If yes, please insert path review specimen here If not, please order "Path Review" for the followingcriteria:1/ WBC count over 40,000/mm3 or below 2,000/mm32/ Platelet counts over 1,000,000/mm3, or below 10,000/mm3, or with abnormal morphology.3/ Abnormal red cell morphology or inclusions which are severe (> 3+) , widespread, or d ifficult to classify.4/ Abnormal white blood cell morphology: Blasts present in peripheral blood of any patient as a new finding. Abnormal cells suspected of being blasts. Patients with large numbers of immature cells in peripheral blood. Unusual cells or cells not easily classified in peripheral blood.5/ Any smear in which the technologist is uncertain of the classification or the disease. RED BLOOD CELL (test code=RBC) 3.39 mill/mm3 3.7-5.2 HEMOGLOBIN (test code=HGB) 9.4 gram/dL 11.5-15.5 HEMATOCRIT (test code=HCT) 31.0 % 36.0-46.0 MEAN CELL VOLUME (test code=MCV) 91.4 fL 80-98 MEAN CELL HGB (test code=MCH) 27.7 picogram 27.0-33.0 MEAN CELL HGB CONCETRATION (test code=MCHC) 30.3 gram/dL 33.0-36.0 RED CELL DISTRIBUTION WIDTH (test code=RDW) 15.4 % 11.6-16.2 RED CELL DISTRIBUTION WIDTH SD (test code=RDW-SD) 50.4 fL 37.0-51.0 PLATELET COUNT (test code=PLT) 208 K/mm3 150-450 MEAN PLATELET VOLUME (test code=MPV) 9.8 fL 6.7-11.0 IMMATURE GRANULOCYTE % (test code=IG%) 0.7 % 0.0-5.0 NUCLEATED RBC % (test code=NRBC%) 0.0 % 0-0 NEUTROPHIL # (test code=NT#) 8.18 K/mm3 1.8-7.7 IMMATURE GRANULOCYTE # (test code=IG#) 0.38 x10 3/uL 0-0.03 LYMPHOCYTE # (test code=LY#) 41.21 K/mm3 1.0-5.0 MONOCYTE # (test code=MO#) 1.40 K/mm3 0-0.8 EOSINOPHIL # (test code=EO#) 0.17 K/mm3 0.0-0.5 BASOPHIL # (test code=BA#) 0.08 K/mm3 0.0-0.2 NUCLEATED RBC # (test code=NRBC#) 0.00 K/mm3 0.0-0.1 MANUAL DIFF REQUIRED (test code=MDIFF) YES STAIN ACCEPTABILITY (test code=STN ACCEPTABLE) STAIN ACCEPTABLE TOTAL CELLS COUNTED (test code=TCC) 122 #CELLS SEGMENTED NEUTROPHILS (test code=SEG) 19.7 % 39-69 BAND NEUTROPHIL (test code=BAND) 0 % 0-10 LYMPHOCYTE (test code=LYMPH) 77.0 % 25-55 REACTIVE LYMPH (test code=RELYMPH) 0 % MONOCYTE (test code=MON) 0.8 % 0-10 EOSINOPHIL (test code=EOS) 2.5 % 0.0-5.0 BASOPHIL (test code=BASO) 0 % 0-1.0 METAMYELOCYTE (test code=META) 0 % 0-0 MYELOCYTE (test code=MYELO) 0 % 0.0-0.0 PROMYELOCYTE (test code=PROM) 0 % 0-0 MORPHOLOGY COMMENT (test code=MOC) NORMAL PLATELET ESTIMATE (test code=PLTEST) ADEQUATE PLATELET MORPHOLOGY (test code=PLTMORPH) NORMAL IMMATURE FORMS (test code=IMMAT) 0 % CBC W/MANUAL [id number] 05:08:00* Test Item Value Reference Range Comments WHITE BLOOD CELL (test code=WBC) 51.4 K/mm3 4.5-12.5 Has "Path Review" been performed on patient's currentadmission?If yes, please insert path review specimen here If not, please order "Path Review" for the followingcriteria:1/ WBC count over 40,000/mm3 or below 2,000/mm32/ Platelet counts over 1,000,000/mm3, or below 10,000/mm3, or with abnormal morphology.3/ Abnormal red cell morphology or inclusions which are severe (> 3+) , widespread, or d ifficult to classify.4/ Abnormal white blood cell morphology: Blasts present in peripheral blood of any patient as a new finding. Abnormal cells suspected of being blasts. Patients with large numbers of immature cells in peripheral blood. Unusual cells or cells not easily classified in peripheral blood.5/ Any smear in which the technologist is uncertain of the classification or the disease. RED BLOOD CELL (test code=RBC) 3.39 mill/mm3 3.7-5.2 HEMOGLOBIN (test code=HGB) 9.4 gram/dL 11.5-15.5 HEMATOCRIT (test code=HCT) 31.0 % 36.0-46.0 MEAN CELL VOLUME (test code=MCV) 91.4 fL 80-98 MEAN CELL HGB (test code=MCH) 27.7 picogram 27.0-33.0 MEAN CELL HGB CONCETRATION (test code=MCHC) 30.3 gram/dL 33.0-36.0 RED CELL DISTRIBUTION WIDTH (test code=RDW) 15.4 % 11.6-16.2 RED CELL DISTRIBUTION WIDTH SD (test code=RDW-SD) 50.4 fL 37.0-51.0 PLATELET COUNT (test code=PLT) 208 K/mm3 150-450 MEAN PLATELET VOLUME (test code=MPV) 9.8 fL 6.7-11.0 IMMATURE GRANULOCYTE % (test code=IG%) 0.7 % 0.0-5.0 NUCLEATED RBC % (test code=NRBC%) 0.0 % 0-0 NEUTROPHIL # (test code=NT#) 8.18 K/mm3 1.8-7.7 IMMATURE GRANULOCYTE # (test code=IG#) 0.38 x10 3/uL 0-0.03 LYMPHOCYTE # (test code=LY#) 41.21 K/mm3 1.0-5.0 MONOCYTE # (test code=MO#) 1.40 K/mm3 0-0.8 EOSINOPHIL # (test code=EO#) 0.17 K/mm3 0.0-0.5 BASOPHIL # (test code=BA#) 0.08 K/mm3 0.0-0.2 NUCLEATED RBC # (test code=NRBC#) 0.00 K/mm3 0.0-0.1 MANUAL DIFF REQUIRED (test code=MDIFF) YES STAIN ACCEPTABILITY (test code=STN ACCEPTABLE) TOTAL CELLS COUNTED (test code=TCC) #CELLS SEGMENTED NEUTROPHILS (test code=SEG) % 39-69 LYMPHOCYTE (test code=LYMPH) % 25-55 MONOCYTE (test code=MON) % 0-10 EOSINOPHIL (test code=EOS) % 0.0-5.0 CABOT RINGS (test code=CAB) MORPHOLOGY COMMENT (test code=MOC) PLATELET ESTIMATE (test code=PLTEST) PLATELET MORPHOLOGY (test code=PLTMORPH) CBC W/MANUAL [id number] 05:08:00* Test Item Value Reference Range Comments WHITE BLOOD CELL (test code=WBC) 51.4 K/mm3 4.5-12.5 Has "Path Review" been performed on patient's currentadmission?If yes, please insert path review specimen here If not, please order "Path Review" for the followingcriteria:1/ WBC count over 40,000/mm3 or below 2,000/mm32/ Platelet counts over 1,000,000/mm3, or below 10,000/mm3, or with abnormal morphology.3/ Abnormal red cell morphology or inclusions which are severe (> 3+) , widespread, or d ifficult to classify.4/ Abnormal white blood cell morphology: Blasts present in peripheral blood of any patient as a new finding. Abnormal cells suspected of being blasts. Patients with large numbers of immature cells in peripheral blood. Unusual cells or cells not easily classified in peripheral blood.5/ Any smear in which the technologist is uncertain of the classification or the disease. RED BLOOD CELL (test code=RBC) 3.39 mill/mm3 3.7-5.2 HEMOGLOBIN (test code=HGB) 9.4 gram/dL 11.5-15.5 HEMATOCRIT (test code=HCT) 31.0 % 36.0-46.0 MEAN CELL VOLUME (test code=MCV) 91.4 fL 80-98 MEAN CELL HGB (test code=MCH) 27.7 picogram 27.0-33.0 MEAN CELL HGB CONCETRATION (test code=MCHC) 30.3 gram/dL 33.0-36.0 RED CELL DISTRIBUTION WIDTH (test code=RDW) 15.4 % 11.6-16.2 RED CELL DISTRIBUTION WIDTH SD (test code=RDW-SD) 50.4 fL 37.0-51.0 PLATELET COUNT (test code=PLT) 208 K/mm3 150-450 MEAN PLATELET VOLUME (test code=MPV) 9.8 fL 6.7-11.0 IMMATURE GRANULOCYTE % (test code=IG%) 0.7 % 0.0-5.0 NUCLEATED RBC % (test code=NRBC%) 0.0 % 0-0 NEUTROPHIL # (test code=NT#) 8.18 K/mm3 1.8-7.7 IMMATURE GRANULOCYTE # (test code=IG#) 0.38 x10 3/uL 0-0.03 LYMPHOCYTE # (test code=LY#) 41.21 K/mm3 1.0-5.0 MONOCYTE # (test code=MO#) 1.40 K/mm3 0-0.8 EOSINOPHIL # (test code=EO#) 0.17 K/mm3 0.0-0.5 BASOPHIL # (test code=BA#) 0.08 K/mm3 0.0-0.2 NUCLEATED RBC # (test code=NRBC#) 0.00 K/mm3 0.0-0.1 MANUAL DIFF REQUIRED (test code=MDIFF) YES STAIN ACCEPTABILITY (test code=STN ACCEPTABLE) TOTAL CELLS COUNTED (test code=TCC) #CELLS SEGMENTED NEUTROPHILS (test code=SEG) % 39-69 LYMPHOCYTE (test code=LYMPH) % 25-55 MONOCYTE (test code=MON) % 0-10 EOSINOPHIL (test code=EOS) % 0.0-5.0 CABOT RINGS (test code=CAB) MORPHOLOGY COMMENT (test code=MOC) PLATELET ESTIMATE (test code=PLTEST) PLATELET MORPHOLOGY (test code=PLTMORPH) CBC W/MANUAL [id number] 05:08:00* Test Item Value Reference Range Comments WHITE BLOOD CELL (test code=WBC) 51.4 K/mm3 4.5-12.5 Has "Path Review" been performed on patient's currentadmission?If yes, please insert path review specimen here If not, please order "Path Review" for the followingcriteria:1/ WBC count over 40,000/mm3 or below 2,000/mm32/ Platelet counts over 1,000,000/mm3, or below 10,000/mm3, or with abnormal morphology.3/ Abnormal red cell morphology or inclusions which are severe (> 3+) , widespread, or d ifficult to classify.4/ Abnormal white blood cell morphology: Blasts present in peripheral blood of any patient as a new finding. Abnormal cells suspected of being blasts. Patients with large numbers of immature cells in peripheral blood. Unusual cells or cells not easily classified in peripheral blood.5/ Any smear in which the technologist is uncertain of the classification or the disease. RED BLOOD CELL (test code=RBC) 3.39 mill/mm3 3.7-5.2 HEMOGLOBIN (test code=HGB) 9.4 gram/dL 11.5-15.5 HEMATOCRIT (test code=HCT) 31.0 % 36.0-46.0 MEAN CELL VOLUME (test code=MCV) 91.4 fL 80-98 MEAN CELL HGB (test code=MCH) 27.7 picogram 27.0-33.0 MEAN CELL HGB CONCETRATION (test code=MCHC) 30.3 gram/dL 33.0-36.0 RED CELL DISTRIBUTION WIDTH (test code=RDW) 15.4 % 11.6-16.2 RED CELL DISTRIBUTION WIDTH SD (test code=RDW-SD) 50.4 fL 37.0-51.0 PLATELET COUNT (test code=PLT) 208 K/mm3 150-450 MEAN PLATELET VOLUME (test code=MPV) 9.8 fL 6.7-11.0 IMMATURE GRANULOCYTE % (test code=IG%) 0.7 % 0.0-5.0 NUCLEATED RBC % (test code=NRBC%) 0.0 % 0-0 NEUTROPHIL # (test code=NT#) 8.18 K/mm3 1.8-7.7 IMMATURE GRANULOCYTE # (test code=IG#) 0.38 x10 3/uL 0-0.03 LYMPHOCYTE # (test code=LY#) 41.21 K/mm3 1.0-5.0 MONOCYTE # (test code=MO#) 1.40 K/mm3 0-0.8 EOSINOPHIL # (test code=EO#) 0.17 K/mm3 0.0-0.5 BASOPHIL # (test code=BA#) 0.08 K/mm3 0.0-0.2 NUCLEATED RBC # (test code=NRBC#) 0.00 K/mm3 0.0-0.1 MANUAL DIFF REQUIRED (test code=MDIFF) YES STAIN ACCEPTABILITY (test code=STN ACCEPTABLE) TOTAL CELLS COUNTED (test code=TCC) #CELLS SEGMENTED NEUTROPHILS (test code=SEG) % 39-69 LYMPHOCYTE (test code=LYMPH) % 25-55 MONOCYTE (test code=MON) % 0-10 EOSINOPHIL (test code=EOS) % 0.0-5.0 MORPHOLOGY COMMENT (test code=MOC) PLATELET ESTIMATE (test code=PLTEST) PLATELET MORPHOLOGY (test code=PLTMORPH) CBC W/MANUAL [id number] 05:08:00* Test Item Value Reference Range Comments WHITE BLOOD CELL (test code=WBC) 51.4 K/mm3 4.5-12.5 Has "Path Review" been performed on patient's currentadmission?If yes, please insert path review specimen here If not, please order "Path Review" for the followingcriteria:1/ WBC count over 40,000/mm3 or below 2,000/mm32/ Platelet counts over 1,000,000/mm3, or below 10,000/mm3, or with abnormal morphology.3/ Abnormal red cell morphology or inclusions which are severe (> 3+) , widespread, or d ifficult to classify.4/ Abnormal white blood cell morphology: Blasts present in peripheral blood of any patient as a new finding. Abnormal cells suspected of being blasts. Patients with large numbers of immature cells in peripheral blood. Unusual cells or cells not easily classified in peripheral blood.5/ Any smear in which the technologist is uncertain of the classification or the disease. RED BLOOD CELL (test code=RBC) 3.39 mill/mm3 3.7-5.2 HEMOGLOBIN (test code=HGB) 9.4 gram/dL 11.5-15.5 HEMATOCRIT (test code=HCT) 31.0 % 36.0-46.0 MEAN CELL VOLUME (test code=MCV) 91.4 fL 80-98 MEAN CELL HGB (test code=MCH) 27.7 picogram 27.0-33.0 MEAN CELL HGB CONCETRATION (test code=MCHC) 30.3 gram/dL 33.0-36.0 RED CELL DISTRIBUTION WIDTH (test code=RDW) 15.4 % 11.6-16.2 RED CELL DISTRIBUTION WIDTH SD (test code=RDW-SD) 50.4 fL 37.0-51.0 PLATELET COUNT (test code=PLT) 208 K/mm3 150-450 MEAN PLATELET VOLUME (test code=MPV) 9.8 fL 6.7-11.0 IMMATURE GRANULOCYTE % (test code=IG%) 0.7 % 0.0-5.0 NUCLEATED RBC % (test code=NRBC%) 0.0 % 0-0 NEUTROPHIL # (test code=NT#) 8.18 K/mm3 1.8-7.7 IMMATURE GRANULOCYTE # (test code=IG#) 0.38 x10 3/uL 0-0.03 LYMPHOCYTE # (test code=LY#) 41.21 K/mm3 1.0-5.0 MONOCYTE # (test code=MO#) 1.40 K/mm3 0-0.8 EOSINOPHIL # (test code=EO#) 0.17 K/mm3 0.0-0.5 BASOPHIL # (test code=BA#) 0.08 K/mm3 0.0-0.2 NUCLEATED RBC # (test code=NRBC#) 0.00 K/mm3 0.0-0.1 MANUAL DIFF REQUIRED (test code=MDIFF) YES STAIN ACCEPTABILITY (test code=STN ACCEPTABLE) TOTAL CELLS COUNTED (test code=TCC) #CELLS SEGMENTED NEUTROPHILS (test code=SEG) % 39-69 LYMPHOCYTE (test code=LYMPH) % 25-55 MONOCYTE (test code=MON) % 0-10 MORPHOLOGY COMMENT (test code=MOC) PLATELET ESTIMATE (test code=PLTEST) PLATELET MORPHOLOGY (test code=PLTMORPH) CBC W/MANUAL [id number] 05:08:00* Test Item Value Reference Range Comments WHITE BLOOD CELL (test code=WBC) 51.4 K/mm3 4.5-12.5 Has "Path Review" been performed on patient's currentadmission?If yes, please insert path review specimen here If not, please order "Path Review" for the followingcriteria:1/ WBC count over 40,000/mm3 or below 2,000/mm32/ Platelet counts over 1,000,000/mm3, or below 10,000/mm3, or with abnormal morphology.3/ Abnormal red cell morphology or inclusions which are severe (> 3+) , widespread, or d ifficult to classify.4/ Abnormal white blood cell morphology: Blasts present in peripheral blood of any patient as a new finding. Abnormal cells suspected of being blasts. Patients with large numbers of immature cells in peripheral blood. Unusual cells or cells not easily classified in peripheral blood.5/ Any smear in which the technologist is uncertain of the classification or the disease. RED BLOOD CELL (test code=RBC) 3.39 mill/mm3 3.7-5.2 HEMOGLOBIN (test code=HGB) 9.4 gram/dL 11.5-15.5 HEMATOCRIT (test code=HCT) 31.0 % 36.0-46.0 MEAN CELL VOLUME (test code=MCV) 91.4 fL 80-98 MEAN CELL HGB (test code=MCH) 27.7 picogram 27.0-33.0 MEAN CELL HGB CONCETRATION (test code=MCHC) 30.3 gram/dL 33.0-36.0 RED CELL DISTRIBUTION WIDTH (test code=RDW) 15.4 % 11.6-16.2 RED CELL DISTRIBUTION WIDTH SD (test code=RDW-SD) 50.4 fL 37.0-51.0 PLATELET COUNT (test code=PLT) 208 K/mm3 150-450 MEAN PLATELET VOLUME (test code=MPV) 9.8 fL 6.7-11.0 IMMATURE GRANULOCYTE % (test code=IG%) 0.7 % 0.0-5.0 NUCLEATED RBC % (test code=NRBC%) 0.0 % 0-0 NEUTROPHIL # (test code=NT#) 8.18 K/mm3 1.8-7.7 IMMATURE GRANULOCYTE # (test code=IG#) 0.38 x10 3/uL 0-0.03 LYMPHOCYTE # (test code=LY#) 41.21 K/mm3 1.0-5.0 MONOCYTE # (test code=MO#) 1.40 K/mm3 0-0.8 EOSINOPHIL # (test code=EO#) 0.17 K/mm3 0.0-0.5 BASOPHIL # (test code=BA#) 0.08 K/mm3 0.0-0.2 NUCLEATED RBC # (test code=NRBC#) 0.00 K/mm3 0.0-0.1 MANUAL DIFF REQUIRED (test code=MDIFF) YES STAIN ACCEPTABILITY (test code=STN ACCEPTABLE) TOTAL CELLS COUNTED (test code=TCC) #CELLS SEGMENTED NEUTROPHILS (test code=SEG) % 39-69 LYMPHOCYTE (test code=LYMPH) % 25-55 MONOCYTE (test code=MON) % 0-10 EOSINOPHIL (test code=EOS) % 0.0-5.0 CABOT RINGS (test code=CAB) MORPHOLOGY COMMENT (test code=MOC) PLATELET ESTIMATE (test code=PLTEST) PLATELET MORPHOLOGY (test code=PLTMORPH) [id number] 20:37:00* Test Item Value Reference Range Comments GLUBED (test code=GLUBED) 261 mg/dL 74-106 [facility]~ URINE K, [id number] 20:05:00* Test Item Value Reference Range Comments URINE K, RANDOM (test code=KU) 17.0 mmol/L 12-75 UR CHLORIDE [id number] 20:05:00* Test Item Value Reference Range Comments UR CHLORIDE RANDOM (test code=CLU) 53 mEq/L [id number] 16:36:00* Test Item Value Reference Range Comments GLUBED (test code=GLUBED) 183 mg/dL 74-106 Performed by certified soyfreeze operator at [facility] [id number] 11:57:00* Test Item Value Reference Range Comments GLUBED (test code=GLUBED) 208 mg/dL 74-106 Performed by certified soyfreeze operator at [facility] [id number] 08:09:00* Test Item Value Reference Range Comments GLUBED (test code=GLUBED) 106 mg/dL 74-106 Performed by certified soyfreeze operator at [facility] CBC W/MANUAL [id number] 06:09:00* Test Item Value Reference Range Comments WHITE BLOOD CELL (test code=WBC) 53.2 K/mm3 4.5-12.5 RESULT VERIFIED BY REPEAT ANALYSIS Has "Path Review" been performed on patient's currentadmission?If yes, please insert path review specimen here If not, please order "Path Review" for the followingcriteria:1/ WBC count over 40,000/mm3 or below 2,000/mm32/ Platelet counts over 1,000,000/mm3, or below 10,000/mm3, or with abnormal morphology.3/ Abnormal red cell morphology or inclusions which are severe (> 3+) , widespread, or difficult to classify.4/ Abnormal white blood cell morphology: Blasts present in peripheral blood of any patient as a new finding. Abnormal cells suspected of being blasts. Patients with large numbers of immature cells in peripheral blood. Unusual cells or cells not easily classified in peripheral blood.5/ Any smear in which the technologist is uncertain of the classification or the disease. RED BLOOD CELL (test code=RBC) 3.34 mill/mm3 3.7-5.2 HEMOGLOBIN (test code=HGB) 9.4 gram/dL 11.5-15.5 HEMATOCRIT (test code=HCT) 30.2 % 36.0-46.0 MEAN CELL VOLUME (test code=MCV) 90.4 fL 80-98 MEAN CELL HGB (test code=MCH) 28.1 picogram 27.0-33.0 MEAN CELL HGB CONCETRATION (test code=MCHC) 31.1 gram/dL 33.0-36.0 RED CELL DISTRIBUTION WIDTH (test code=RDW) 15.5 % 11.6-16.2 RED CELL DISTRIBUTION WIDTH SD (test code=RDW-SD) 50.2 fL 37.0-51.0 PLATELET COUNT (test code=PLT) 207 K/mm3 150-450 MEAN PLATELET VOLUME (test code=MPV) 9.8 fL 6.7-11.0 IMMATURE GRANULOCYTE % (test code=IG%) 0.8 % 0.0-5.0 NUCLEATED RBC % (test code=NRBC%) 0.1 % 0-0 NEUTROPHIL # (test code=NT#) 8.37 K/mm3 1.8-7.7 IMMATURE GRANULOCYTE # (test code=IG#) 0.43 x10 3/uL 0-0.03 LYMPHOCYTE # (test code=LY#) 42.73 K/mm3 1.0-5.0 MONOCYTE # (test code=MO#) 1.50 K/mm3 0-0.8 EOSINOPHIL # (test code=EO#) 0.05 K/mm3 0.0-0.5 BASOPHIL # (test code=BA#) 0.15 K/mm3 0.0-0.2 NUCLEATED RBC # (test code=NRBC#) 0.04 K/mm3 0.0-0.1 MANUAL DIFF REQUIRED (test code=MDIFF) YES STAIN ACCEPTABILITY (test code=STN ACCEPTABLE) STAIN ACCEPTABLE TOTAL CELLS COUNTED (test code=TCC) 115 #CELLS SEGMENTED NEUTROPHILS (test code=SEG) 18.2 % 39-69 BAND NEUTROPHIL (test code=BAND) 0 % 0-10 LYMPHOCYTE (test code=LYMPH) 71.3 % 25-55 REACTIVE LYMPH (test code=RELYMPH) 0.9 % MONOCYTE (test code=MON) 0.9 % 0-10 EOSINOPHIL (test code=EOS) 0 % 0.0-5.0 BASOPHIL (test code=BASO) 0.9 % 0-1.0 METAMYELOCYTE (test code=META) 0 % 0-0 MYELOCYTE (test code=MYELO) 0 % 0.0-0.0 PROMYELOCYTE (test code=PROM) 0 % 0-0 MORPHOLOGY COMMENT (test code=MOC) NORMAL PLATELET ESTIMATE (test code=PLTEST) ADEQUATE PLATELET MORPHOLOGY (test code=PLTMORPH) SIZE VARIABLE IMMATURE FORMS (test code=IMMAT) 7.8 % CBC W/MANUAL [id number] 05:23:00* Test Item Value Reference Range Comments WHITE BLOOD CELL (test code=WBC) 53.2 K/mm3 4.5-12.5 RESULT VERIFIED BY REPEAT ANALYSIS Has "Path Review" been performed on patient's currentadmission?If yes, please insert path review specimen here If not, please order "Path Review" for the followingcriteria:1/ WBC count over 40,000/mm3 or below 2,000/mm32/ Platelet counts over 1,000,000/mm3, or below 10,000/mm3, or with abnormal morphology.3/ Abnormal red cell morphology or inclusions which are severe (> 3+) , widespread, or difficult to classify.4/ Abnormal white blood cell morphology: Blasts present in peripheral blood of any patient as a new finding. Abnormal cells suspected of being blasts. Patients with large numbers of immature cells in peripheral blood. Unusual cells or cells not easily classified in peripheral blood.5/ Any smear in which the technologist is uncertain of the classification or the disease. RED BLOOD CELL (test code=RBC) 3.34 mill/mm3 3.7-5.2 HEMOGLOBIN (test code=HGB) 9.4 gram/dL 11.5-15.5 HEMATOCRIT (test code=HCT) 30.2 % 36.0-46.0 MEAN CELL VOLUME (test code=MCV) 90.4 fL 80-98 MEAN CELL HGB (test code=MCH) 28.1 picogram 27.0-33.0 MEAN CELL HGB CONCETRATION (test code=MCHC) 31.1 gram/dL 33.0-36.0 RED CELL DISTRIBUTION WIDTH (test code=RDW) 15.5 % 11.6-16.2 RED CELL DISTRIBUTION WIDTH SD (test code=RDW-SD) 50.2 fL 37.0-51.0 PLATELET COUNT (test code=PLT) 207 K/mm3 150-450 MEAN PLATELET VOLUME (test code=MPV) 9.8 fL 6.7-11.0 IMMATURE GRANULOCYTE % (test code=IG%) 0.8 % 0.0-5.0 NUCLEATED RBC % (test code=NRBC%) 0.1 % 0-0 NEUTROPHIL # (test code=NT#) 8.37 K/mm3 1.8-7.7 IMMATURE GRANULOCYTE # (test code=IG#) 0.43 x10 3/uL 0-0.03 LYMPHOCYTE # (test code=LY#) 42.73 K/mm3 1.0-5.0 MONOCYTE # (test code=MO#) 1.50 K/mm3 0-0.8 EOSINOPHIL # (test code=EO#) 0.05 K/mm3 0.0-0.5 BASOPHIL # (test code=BA#) 0.15 K/mm3 0.0-0.2 NUCLEATED RBC # (test code=NRBC#) 0.04 K/mm3 0.0-0.1 MANUAL DIFF REQUIRED (test code=MDIFF) YES STAIN ACCEPTABILITY (test code=STN ACCEPTABLE) TOTAL CELLS COUNTED (test code=TCC) #CELLS SEGMENTED NEUTROPHILS (test code=SEG) % 39-69 LYMPHOCYTE (test code=LYMPH) % 25-55 MONOCYTE (test code=MON) % 0-10 MORPHOLOGY COMMENT (test code=MOC) PLATELET ESTIMATE (test code=PLTEST) PLATELET MORPHOLOGY (test code=PLTMORPH) PROCALCITONIN (PCT)2018-12-05 05:20:00* Test Item Value Reference Range Comments PROCALCITONIN (PCT) (test code=PROCAL) 0.17 ng/ml Concentration Interpretation (ng/mL) <0.51 Sepsis is not likely. Local bacterial infection is possible. (LOW RISK for progression to Sepsis) 0.51 - 2.00 Sepsis is possible, but other conditions are known to elevate PCT as well. (MODERATE RISK for progression to Sepsis) > 2.00 Sepsis is likely, unless other causes are known. (HIGH RISK for progression to Severe Sepsis or Septic Shock) 10.00 High likelihood of Severe Sepsis or Septic or higher Shock. *Increased PCT levels may not always be related to systemic bacterial infection.*Low PCT levels do not automatically exclude the presence of bacterial infection.*All results should be interpreted taking into account the patients history. BASIC METABOLIC [id number] 05:00:00* Test Item Value Reference Range Comments SODIUM (test code=NA) 142 mmol/L 136-145 POTASSIUM (test code=K) 3.6 mmol/L 3.5-5.1 CHLORIDE (test code=CL) 111.0 mmol/L 98-107 CARBON DIOXIDE (test code=CO2) 20.0 mmol/L 21-32 ANION GAP (test code=GAP) 14.6 10-20 GLUCOSE (test code=GLU) 111 mg/dL 74-106 BLOOD UREA NITROGEN (test code=BUN) 37 mg/dL 7-18 GLOMERULAR FILTRATION RATE (test code=GFR) > 60 mL/min >=60 Estimated GFR by using Modified MDRD formula.Chronic kidney disease is defined as either kidney damageor GFR <60 mL/min/1.73 m2 for >3 months. CREATININE (test code=CREAT) 0.90 mg/dL 0.55-1.02 Note change in reference range due to change in reagent. BUN/CREATININE RATIO (test code=BUN/CREA) 39.1 10-20 CALCIUM (test code=CA) 8.3 mg/dL 8.5-10.1 BASIC METABOLIC [id number] 04:55:00* Test Item Value Reference Range Comments SODIUM (test code=NA) 142 mmol/L 136-145 POTASSIUM (test code=K) 3.6 mmol/L 3.5-5.1 CHLORIDE (test code=CL) 111.0 mmol/L 98-107 CARBON DIOXIDE (test code=CO2) mmol/L 21-32 ANION GAP (test code=GAP) 10-20 GLUCOSE (test code=GLU) mg/dL 74-106 BLOOD UREA NITROGEN (test code=BUN) mg/dL 7-18 GLOMERULAR FILTRATION RATE (test code=GFR) mL/min >=60 CREATININE (test code=CREAT) mg/dL 0.55-1.02 BUN/CREATININE RATIO (test code=BUN/CREA) 10-20 CALCIUM (test code=CA) mg/dL 8.5-10.1 [id number] 21:07:00* Test Item Value Reference Range Comments GLUBED (test code=GLUBED) 174 mg/dL 74-106 Performed by certified soyfreeze operator at [facility] CBC W/MANUAL [id number] 19:09:00* Test Item Value Reference Range Comments WHITE BLOOD CELL (test code=WBC) 49.7 K/mm3 4.5-12.5 RESULT VERIFIED BY REPEAT ANALYSIS Has "Path Review" been performed on patient's currentadmission?If yes, please insert path review specimen here If not, please order "Path Review" for the followingcriteria:1/ WBC count over 40,000/mm3 or below 2,000/mm32/ Platelet counts over 1,000,000/mm3, or below 10,000/mm3, or with abnormal morphology.3/ Abnormal red cell morphology or inclusions which are severe (> 3+) , widespread, or difficult to classify.4/ Abnormal white blood cell morphology: Blasts present in peripheral blood of any patient as a new finding. Abnormal cells suspected of being blasts. Patients with large numbers of immature cells in peripheral blood. Unusual cells or cells not easily classified in peripheral blood.5/ Any smear in which the technologist is uncertain of the classification or the disease. RED BLOOD CELL (test code=RBC) 3.55 mill/mm3 3.7-5.2 HEMOGLOBIN (test code=HGB) 9.8 gram/dL 11.5-15.5 HEMATOCRIT (test code=HCT) 32.4 % 36.0-46.0 MEAN CELL VOLUME (test code=MCV) 91.3 fL 80-98 MEAN CELL HGB (test code=MCH) 27.6 picogram 27.0-33.0 MEAN CELL HGB CONCETRATION (test code=MCHC) 30.2 gram/dL 33.0-36.0 RED CELL DISTRIBUTION WIDTH (test code=RDW) 15.7 % 11.6-16.2 RED CELL DISTRIBUTION WIDTH SD (test code=RDW-SD) 51.8 fL 37.0-51.0 PLATELET COUNT (test code=PLT) 251 K/mm3 150-450 MEAN PLATELET VOLUME (test code=MPV) 9.6 fL 6.7-11.0 IMMATURE GRANULOCYTE % (test code=IG%) 1.6 % 0.0-5.0 NUCLEATED RBC % (test code=NRBC%) 0.1 % 0-0 NEUTROPHIL # (test code=NT#) 11.76 K/mm3 1.8-7.7 IMMATURE GRANULOCYTE # (test code=IG#) 0.81 x10 3/uL 0-0.03 LYMPHOCYTE # (test code=LY#) 35.38 K/mm3 1.0-5.0 MONOCYTE # (test code=MO#) 1.72 K/mm3 0-0.8 EOSINOPHIL # (test code=EO#) 0.01 K/mm3 0.0-0.5 BASOPHIL # (test code=BA#) 0.03 K/mm3 0.0-0.2 NUCLEATED RBC # (test code=NRBC#) 0.03 K/mm3 0.0-0.1 MANUAL DIFF REQUIRED (test code=MDIFF) YES STAIN ACCEPTABILITY (test code=STN ACCEPTABLE) STAIN ACCEPTABLE TOTAL CELLS COUNTED (test code=TCC) 114 #CELLS SEGMENTED NEUTROPHILS (test code=SEG) 23.7 % 39-69 BAND NEUTROPHIL (test code=BAND) 0 % 0-10 LYMPHOCYTE (test code=LYMPH) 65.8 % 25-55 REACTIVE LYMPH (test code=RELYMPH) 0 % MONOCYTE (test code=MON) 4.4 % 0-10 EOSINOPHIL (test code=EOS) 0 % 0.0-5.0 BASOPHIL (test code=BASO) 0 % 0-1.0 METAMYELOCYTE (test code=META) 0 % 0-0 MYELOCYTE (test code=MYELO) 0 % 0.0-0.0 PROMYELOCYTE (test code=PROM) 0.9 % 0-0 PLATELET ESTIMATE (test code=PLTEST) ADEQUATE PLATELET MORPHOLOGY (test code=PLTMORPH) NORMAL IMMATURE FORMS (test code=IMMAT) 5.2 % PATHOLOGISTS [id number] 19:09:00* Test Item Value Reference Range Comments PATHOLOGISTS FINDINGS (test code=PATH) PATH NOTES MARKED LYMPHOCYTOSIS CONSISTENT WITH PERIPHERAL BLOODINVOLVEMENT OF SMALL B-CELL LYMPHOMA, FOLLICULAR LYMPHOMA(THE PATIENT HAS A PREVIOUS HISTORY OF SMALL B-CELLFOLLICULAR LYMPHOMA SEE CLEAR PATHOLOGY REPORT ([id number])CLINICAL CORRELATION RECOMMENDED. REVIEWED BY NORA HENDRICKSON M.D.12/04/18 [id number] 17:14:00* Test Item Value Reference Range Comments GLUBED (test code=GLUBED) 118 mg/dL 74-106 Performed by certified soyfreeze operator at [facility] - CT ABD PELVIS W/O [id number] 16:07:00 Name: JACINTO NEVAREZ [facility] : 1950 Age/S: 68 / F [address] Unit #: [id number] Loc: [place] [address] Phys: Alexi RAMIREZ,Aleksandar Cazares Acct: [id number] Dis Date: Status: ADM IN PHONE #: [phone] Exam Date: 12/04/2018 1550 FAX #: [phone] Reason: EVALUATE FOR PNEUMONIA, ABSCESS, COLITIS EXAMS: CPT CODE: [id number] CT ABD PELVIS W/O CONT 43224 REASON FOR EXAM: EVALUATE FOR PNEUMONIA, ABSCESS, COLITIS EXAM ORDER DATE: 12/04/2018 1:36 PM Ordering MCarl.: Aleksandar Truong MD PROCEDURE: - CT ABD PELVIS W/O CONT COMPARISON: FINDINGS: CT images of the abdomen and pelvis were obtained without IV and with oral contrast at 5mm. Dose reduction techniques were applied The liver, spleen, pancreas are grossly within normal limits. Small radiopaque stones seen within the gallbladder The kidneys are within normal limits. The urinary bladder is minimally distended. The colon, small bowel, and stomach are within normal limits without evidence of obstruction. The appendix is unremarkable. No evidence of free a ir or free fluid. Moderate streaky artifacts from the residual barium in t he colon IMPRESSION: Probable cholelithiasis. Multiple small (2 to 3 cm) retroperitoneal nodes. at 1607 Reported and signed by: Randolph Muniz M.D. CC: Aleksandar Truong; Harmony Ring MD; Rocael Clayton M.D. Technologist:RT ELEONORA(R) CT CTDI: DLP: Trnscb Date/Time: 12/04/2018 (1607) t.TODDR.VTL Orig Print D/T: S: 12/04/2018 (1610) CTDI: DLP: PAGE 1 Signed Report - CT CHEST W/O [id number] 15:55:00 Name: JACINTO NEVAREZ [facility] : 1950 Age/S: 68 / F [address] [facility] Unit #: [id number] Loc: [facility] [place] [address] Phys: Alexi RAMIREZ,Aleksandar Cazares Acct: [id number] Dis Date: Status: ADM IN PHONE #: [phone] Exam Date: 12/04/2018 1550 FAX #: [phone] Reason: EVALUATE FOR PNEUMONIA EXAMS: CPT CODE: [id number] CT CHEST W/O CONTRAST 12088 REASON FOR EXAM: EVALUATE FOR PNEUMONIA EXAM ORDER DATE: 12/04/2018 1:36 PM Ordering Yoan: Aleksandar Truong MD PROCEDURE: - CT CHEST W/O CONTRAST COMPARISON: 11/29/2018 FINDINGS: CT images of the chest were obtained without IV contrast. Reconstructed sagittal and coronal images of the chest were provided for interpretation. Dose reduction techniques were applied. The heart size is minimally enlarged. No evidence of pericardial effusion The thoracic aorta is unremarkable. The lungs are clear. No evidence of pleural effusion IMPRESSION: 1. Persistent numerous small (1-2 cm) cervical and bilateral axillary nodes 2. nonspecific edematous and thickening of the wall of the distal esophagus at 1555 Reported and signed by: Randolph Muniz M.D. CC: Aleksandar Truong; Harmony Ring MD; Rocael Clayton M.D. Technologist:RT ELEONORA(R) CT CTDI: DLP: Trnscb Date/Time: 12/04/2018 (1555) t.SDR.VTL Orig Print D/T: S: 12/04/2018 (0955) CTDI: DLP: PAGE 1 Signed Report [id number] 12:45:00* Test Item Value Reference Range Comments GLUBED (test code=GLUBED) 270 mg/dL 74-106 Performed by certified soyfreeze operator at [facility] - XR CHEST 1 [id number] 10:12:00 FAX: Mango Vogel MD [phone] [place]: B St: ADM FAX: Harmony James MD FAX: Rocael Rodas III [phone] Name: JACINTO NEVAREZ [facility] : 1950 Age/S: 68/F [address] Unit #: [id number] Loc: V.3019 [place] [address] Phys: Mango Davis MD Acct: [id number] Dis Date: Status: ADM IN ONE #: [phone] Exam Date: 12/04/2018924 FAX #: [phone] Reason: Leukocytosis EXAMS: CPT CODE: [id number] XR CHEST 1 V 84776 HISTORY: Leuko cytosis. COMPARISON: December 02, 2018. No acute inf iltrates, effusion or congestion is noted. Cardiomegaly. IMPRESSION: No acute infiltrates, effusion or congest ion. at 101 2 Reported and signed by: Garret Ahuja M.D. CC: Mango Davis MD; Harmony Ring MD; Rocael Clayton M.D. Techn ologist: RT ELISA(R) Trnscrd Date/Eliot e/By: 12/04/2018 (1012) : By: [email or web address] Orig Print D/T: S: 12/04/2018 (1015) PAGE 1 Signed Report [id number] 08:19:00* Test Item Value Reference Range Comments GLUBED (test code=GLUBED) 227 mg/dL 74-106 Performed by certified soyfreeze operator at [facility] CBC W/MANUAL [id number] 05:54:00* Test Item Value Reference Range Comments WHITE BLOOD CELL (test code=WBC) 49.7 K/mm3 4.5-12.5 RESULT VERIFIED BY REPEAT ANALYSIS Has "Path Review" been performed on patient's currentadmission?If yes, please insert path review specimen here If not, please order "Path Review" for the followingcriteria:1/ WBC count over 40,000/mm3 or below 2,000/mm32/ Platelet counts over 1,000,000/mm3, or below 10,000/mm3, or with abnormal morphology.3/ Abnormal red cell morphology or inclusions which are severe (> 3+) , widespread, or difficult to classify.4/ Abnormal white blood cell morphology: Blasts present in peripheral blood of any patient as a new finding. Abnormal cells suspected of being blasts. Patients with large numbers of immature cells in peripheral blood. Unusual cells or cells not easily classified in peripheral blood.5/ Any smear in which the technologist is uncertain of the classification or the disease. RED BLOOD CELL (test code=RBC) 3.55 mill/mm3 3.7-5.2 HEMOGLOBIN (test code=HGB) 9.8 gram/dL 11.5-15.5 HEMATOCRIT (test code=HCT) 32.4 % 36.0-46.0 MEAN CELL VOLUME (test code=MCV) 91.3 fL 80-98 MEAN CELL HGB (test code=MCH) 27.6 picogram 27.0-33.0 MEAN CELL HGB CONCETRATION (test code=MCHC) 30.2 gram/dL 33.0-36.0 RED CELL DISTRIBUTION WIDTH (test code=RDW) 15.7 % 11.6-16.2 RED CELL DISTRIBUTION WIDTH SD (test code=RDW-SD) 51.8 fL 37.0-51.0 PLATELET COUNT (test code=PLT) 251 K/mm3 150-450 MEAN PLATELET VOLUME (test code=MPV) 9.6 fL 6.7-11.0 IMMATURE GRANULOCYTE % (test code=IG%) 1.6 % 0.0-5.0 NUCLEATED RBC % (test code=NRBC%) 0.1 % 0-0 NEUTROPHIL # (test code=NT#) 11.76 K/mm3 1.8-7.7 IMMATURE GRANULOCYTE # (test code=IG#) 0.81 x10 3/uL 0-0.03 LYMPHOCYTE # (test code=LY#) 35.38 K/mm3 1.0-5.0 MONOCYTE # (test code=MO#) 1.72 K/mm3 0-0.8 EOSINOPHIL # (test code=EO#) 0.01 K/mm3 0.0-0.5 BASOPHIL # (test code=BA#) 0.03 K/mm3 0.0-0.2 NUCLEATED RBC # (test code=NRBC#) 0.03 K/mm3 0.0-0.1 MANUAL DIFF REQUIRED (test code=MDIFF) YES STAIN ACCEPTABILITY (test code=STN ACCEPTABLE) STAIN ACCEPTABLE TOTAL CELLS COUNTED (test code=TCC) 114 #CELLS SEGMENTED NEUTROPHILS (test code=SEG) 23.7 % 39-69 BAND NEUTROPHIL (test code=BAND) 0 % 0-10 LYMPHOCYTE (test code=LYMPH) 65.8 % 25-55 REACTIVE LYMPH (test code=RELYMPH) 0 % MONOCYTE (test code=MON) 4.4 % 0-10 EOSINOPHIL (test code=EOS) 0 % 0.0-5.0 BASOPHIL (test code=BASO) 0 % 0-1.0 METAMYELOCYTE (test code=META) 0 % 0-0 MYELOCYTE (test code=MYELO) 0 % 0.0-0.0 PROMYELOCYTE (test code=PROM) 0.9 % 0-0 PLATELET ESTIMATE (test code=PLTEST) ADEQUATE PLATELET MORPHOLOGY (test code=PLTMORPH) NORMAL IMMATURE FORMS (test code=IMMAT) 5.2 % PATHOLOGISTS [id number] 05:54:00* Test Item Value Reference Range Comments PATHOLOGISTS FINDINGS (test code=PATH) PATH NOTES BASIC METABOLIC [id number] 05:40:00* Test Item Value Reference Range Comments SODIUM (test code=NA) 142 mmol/L 136-145 POTASSIUM (test code=K) 3.8 mmol/L 3.5-5.1 CHLORIDE (test code=CL) 111.0 mmol/L 98-107 CARBON DIOXIDE (test code=CO2) 19.0 mmol/L 21-32 ANION GAP (test code=GAP) 15.8 10-20 GLUCOSE (test code=GLU) 194 mg/dL 74-106 BLOOD UREA NITROGEN (test code=BUN) 40 mg/dL 7-18 GLOMERULAR FILTRATION RATE (test code=GFR) 45 mL/min >=60 Estimated GFR by using Modified MDRD formula.Chronic kidney disease is defined as either kidney damageor GFR <60 mL/min/1.73 m2 for >3 months. CREATININE (test code=CREAT) 1.20 mg/dL 0.55-1.02 Note change in reference range due to change in reagent. BUN/CREATININE RATIO (test code=BUN/CREA) 34.5 10-20 CALCIUM (test code=CA) 8.5 mg/dL 8.5-10.1 BASIC METABOLIC [id number] 05:32:00* Test Item Value Reference Range Comments SODIUM (test code=NA) 142 mmol/L 136-145 POTASSIUM (test code=K) 3.8 mmol/L 3.5-5.1 CHLORIDE (test code=CL) 111.0 mmol/L 98-107 CARBON DIOXIDE (test code=CO2) mmol/L 21-32 ANION GAP (test code=GAP) 10-20 GLUCOSE (test code=GLU) mg/dL 74-106 BLOOD UREA NITROGEN (test code=BUN) mg/dL 7-18 GLOMERULAR FILTRATION RATE (test code=GFR) mL/min >=60 CREATININE (test code=CREAT) mg/dL 0.55-1.02 BUN/CREATININE RATIO (test code=BUN/CREA) 10-20 CALCIUM (test code=CA) mg/dL 8.5-10.1 CBC W/MANUAL [id number] 05:29:00* Test Item Value Reference Range Comments WHITE BLOOD CELL (test code=WBC) 49.7 K/mm3 4.5-12.5 RESULT VERIFIED BY REPEAT ANALYSIS Has "Path Review" been performed on patient's currentadmission?If yes, please insert path review specimen here If not, please order "Path Review" for the followingcriteria:1/ WBC count over 40,000/mm3 or below 2,000/mm32/ Platelet counts over 1,000,000/mm3, or below 10,000/mm3, or with abnormal morphology.3/ Abnormal red cell morphology or inclusions which are severe (> 3+) , widespread, or difficult to classify.4/ Abnormal white blood cell morphology: Blasts present in peripheral blood of any patient as a new finding. Abnormal cells suspected of being blasts. Patients with large numbers of immature cells in peripheral blood. Unusual cells or cells not easily classified in peripheral blood.5/ Any smear in which the technologist is uncertain of the classification or the disease. RED BLOOD CELL (test code=RBC) 3.55 mill/mm3 3.7-5.2 HEMOGLOBIN (test code=HGB) 9.8 gram/dL 11.5-15.5 HEMATOCRIT (test code=HCT) 32.4 % 36.0-46.0 MEAN CELL VOLUME (test code=MCV) 91.3 fL 80-98 MEAN CELL HGB (test code=MCH) 27.6 picogram 27.0-33.0 MEAN CELL HGB CONCETRATION (test code=MCHC) 30.2 gram/dL 33.0-36.0 RED CELL DISTRIBUTION WIDTH (test code=RDW) 15.7 % 11.6-16.2 RED CELL DISTRIBUTION WIDTH SD (test code=RDW-SD) 51.8 fL 37.0-51.0 PLATELET COUNT (test code=PLT) 251 K/mm3 150-450 MEAN PLATELET VOLUME (test code=MPV) 9.6 fL 6.7-11.0 IMMATURE GRANULOCYTE % (test code=IG%) 1.6 % 0.0-5.0 NUCLEATED RBC % (test code=NRBC%) 0.1 % 0-0 NEUTROPHIL # (test code=NT#) 11.76 K/mm3 1.8-7.7 IMMATURE GRANULOCYTE # (test code=IG#) 0.81 x10 3/uL 0-0.03 LYMPHOCYTE # (test code=LY#) 35.38 K/mm3 1.0-5.0 MONOCYTE # (test code=MO#) 1.72 K/mm3 0-0.8 EOSINOPHIL # (test code=EO#) 0.01 K/mm3 0.0-0.5 BASOPHIL # (test code=BA#) 0.03 K/mm3 0.0-0.2 NUCLEATED RBC # (test code=NRBC#) 0.03 K/mm3 0.0-0.1 MANUAL DIFF REQUIRED (test code=MDIFF) YES STAIN ACCEPTABILITY (test code=STN ACCEPTABLE) TOTAL CELLS COUNTED (test code=TCC) #CELLS SEGMENTED NEUTROPHILS (test code=SEG) % 39-69 LYMPHOCYTE (test code=LYMPH) % 25-55 MONOCYTE (test code=MON) % 0-10 MORPHOLOGY COMMENT (test code=MOC) PLATELET ESTIMATE (test code=PLTEST) PLATELET MORPHOLOGY (test code=PLTMORPH) PATHOLOGISTS [id number] 05:29:00* Test Item Value Reference Range Comments PATHOLOGISTS FINDINGS (test code=PATH) PATH NOTES CBC W/MANUAL [id number] 05:28:00* Test Item Value Reference Range Comments WHITE BLOOD CELL (test code=WBC) 49.7 K/mm3 4.5-12.5 RESULT VERIFIED BY REPEAT ANALYSIS Has "Path Review" been performed on patient's currentadmission?If yes, please insert path review specimen here If not, please order "Path Review" for the followingcriteria:1/ WBC count over 40,000/mm3 or below 2,000/mm32/ Platelet counts over 1,000,000/mm3, or below 10,000/mm3, or with abnormal morphology.3/ Abnormal red cell morphology or inclusions which are severe (> 3+) , widespread, or difficult to classify.4/ Abnormal white blood cell morphology: Blasts present in peripheral blood of any patient as a new finding. Abnormal cells suspected of being blasts. Patients with large numbers of immature cells in peripheral blood. Unusual cells or cells not easily classified in peripheral blood.5/ Any smear in which the technologist is uncertain of the classification or the disease. RED BLOOD CELL (test code=RBC) 3.55 mill/mm3 3.7-5.2 HEMOGLOBIN (test code=HGB) 9.8 gram/dL 11.5-15.5 HEMATOCRIT (test code=HCT) 32.4 % 36.0-46.0 MEAN CELL VOLUME (test code=MCV) 91.3 fL 80-98 MEAN CELL HGB (test code=MCH) 27.6 picogram 27.0-33.0 MEAN CELL HGB CONCETRATION (test code=MCHC) 30.2 gram/dL 33.0-36.0 RED CELL DISTRIBUTION WIDTH (test code=RDW) 15.7 % 11.6-16.2 RED CELL DISTRIBUTION WIDTH SD (test code=RDW-SD) 51.8 fL 37.0-51.0 PLATELET COUNT (test code=PLT) 251 K/mm3 150-450 MEAN PLATELET VOLUME (test code=MPV) 9.6 fL 6.7-11.0 IMMATURE GRANULOCYTE % (test code=IG%) 1.6 % 0.0-5.0 NUCLEATED RBC % (test code=NRBC%) 0.1 % 0-0 NEUTROPHIL # (test code=NT#) 11.76 K/mm3 1.8-7.7 IMMATURE GRANULOCYTE # (test code=IG#) 0.81 x10 3/uL 0-0.03 LYMPHOCYTE # (test code=LY#) 35.38 K/mm3 1.0-5.0 MONOCYTE # (test code=MO#) 1.72 K/mm3 0-0.8 EOSINOPHIL # (test code=EO#) 0.01 K/mm3 0.0-0.5 BASOPHIL # (test code=BA#) 0.03 K/mm3 0.0-0.2 NUCLEATED RBC # (test code=NRBC#) 0.03 K/mm3 0.0-0.1 MANUAL DIFF REQUIRED (test code=MDIFF) YES STAIN ACCEPTABILITY (test code=STN ACCEPTABLE) TOTAL CELLS COUNTED (test code=TCC) #CELLS SEGMENTED NEUTROPHILS (test code=SEG) % 39-69 LYMPHOCYTE (test code=LYMPH) % 25-55 MONOCYTE (test code=MON) % 0-10 EOSINOPHIL (test code=EOS) % 0.0-5.0 CABOT RINGS (test code=CAB) MORPHOLOGY COMMENT (test code=MOC) PLATELET ESTIMATE (test code=PLTEST) PLATELET MORPHOLOGY (test code=PLTMORPH) CBC W/MANUAL [id number] 05:28:00* Test Item Value Reference Range Comments WHITE BLOOD CELL (test code=WBC) 49.7 K/mm3 4.5-12.5 RESULT VERIFIED BY REPEAT ANALYSIS Has "Path Review" been performed on patient's currentadmission?If yes, please insert path review specimen here If not, please order "Path Review" for the followingcriteria:1/ WBC count over 40,000/mm3 or below 2,000/mm32/ Platelet counts over 1,000,000/mm3, or below 10,000/mm3, or with abnormal morphology.3/ Abnormal red cell morphology or inclusions which are severe (> 3+) , widespread, or difficult to classify.4/ Abnormal white blood cell morphology: Blasts present in peripheral blood of any patient as a new finding. Abnormal cells suspected of being blasts. Patients with large numbers of immature cells in peripheral blood. Unusual cells or cells not easily classified in peripheral blood.5/ Any smear in which the technologist is uncertain of the classification or the disease. RED BLOOD CELL (test code=RBC) 3.55 mill/mm3 3.7-5.2 HEMOGLOBIN (test code=HGB) 9.8 gram/dL 11.5-15.5 HEMATOCRIT (test code=HCT) 32.4 % 36.0-46.0 MEAN CELL VOLUME (test code=MCV) 91.3 fL 80-98 MEAN CELL HGB (test code=MCH) 27.6 picogram 27.0-33.0 MEAN CELL HGB CONCETRATION (test code=MCHC) 30.2 gram/dL 33.0-36.0 RED CELL DISTRIBUTION WIDTH (test code=RDW) 15.7 % 11.6-16.2 RED CELL DISTRIBUTION WIDTH SD (test code=RDW-SD) 51.8 fL 37.0-51.0 PLATELET COUNT (test code=PLT) 251 K/mm3 150-450 MEAN PLATELET VOLUME (test code=MPV) 9.6 fL 6.7-11.0 IMMATURE GRANULOCYTE % (test code=IG%) 1.6 % 0.0-5.0 NUCLEATED RBC % (test code=NRBC%) 0.1 % 0-0 NEUTROPHIL # (test code=NT#) 11.76 K/mm3 1.8-7.7 IMMATURE GRANULOCYTE # (test code=IG#) 0.81 x10 3/uL 0-0.03 LYMPHOCYTE # (test code=LY#) 35.38 K/mm3 1.0-5.0 MONOCYTE # (test code=MO#) 1.72 K/mm3 0-0.8 EOSINOPHIL # (test code=EO#) 0.01 K/mm3 0.0-0.5 BASOPHIL # (test code=BA#) 0.03 K/mm3 0.0-0.2 NUCLEATED RBC # (test code=NRBC#) 0.03 K/mm3 0.0-0.1 MANUAL DIFF REQUIRED (test code=MDIFF) YES STAIN ACCEPTABILITY (test code=STN ACCEPTABLE) TOTAL CELLS COUNTED (test code=TCC) #CELLS SEGMENTED NEUTROPHILS (test code=SEG) % 39-69 LYMPHOCYTE (test code=LYMPH) % 25-55 MONOCYTE (test code=MON) % 0-10 EOSINOPHIL (test code=EOS) % 0.0-5.0 CABOT RINGS (test code=CAB) MORPHOLOGY COMMENT (test code=MOC) PLATELET ESTIMATE (test code=PLTEST) PLATELET MORPHOLOGY (test code=PLTMORPH) [id number] 19:56:00* Test Item Value Reference Range Comments GLUBED (test code=GLUBED) 264 mg/dL 74-106 Performed by certified soyfreeze operator at [facility] [id number] 16:13:00* Test Item Value Reference Range Comments GLUBED (test code=GLUBED) 238 mg/dL 74-106 Performed by certified soyfreeze operator at [facility] LACTIC DEHYDROGENASE(LDH)2018-12-03 15:38:00* Test Item Value Reference Range Comments LACTIC DEHYDROGENASE(LDH) (test code=LDH) 265 IUnit/L 84-246 FE W/TOTAL IRON BINDING CAP.2018-12-03 15:38:00* Test Item Value Reference Range Comments SERUM IRON (test code=IRON) 101 ug/dL 50-175 TOTAL IRON BINDING CAPACITY (test code=TIBC) 208 mcg/dL 250-450 IRON SATURATION (test code=FESAT) 48.56 % 13-45 VITAMIN [id number] 15:38:00* Test Item Value Reference Range Comments VITAMIN B12 (test code=VITB12) 2634 pg/mL 193-986 FOLIC [id number] 15:38:00* Test Item Value Reference Range Comments FOLIC ACID (test code=FOL) 17.1 ng/mL 3.10-17.50 [id number] 15:38:00* Test Item Value Reference Range Comments FERRITIN (test code=CHLOE) 216 ng/mL 8-388 RETICULOCYTE [id number] 14:24:00* Test Item Value Reference Range Comments RETICULOCYTE COUNT (test code=RETICT) 2.4 % 0.5-2.0 RETIC COUNT ABSOLUTE (test code=RET#) 0.074 mill/mm3 0.016-0.095 IMMATURE RETICULOCYTE FRACTION (test code=IRF) 20.2 % 3.0-15.9 Values above normal range indicate an increase in RBCcellular response from bone marrow. RETICULOCYTE HGB EQUIVALENT (test code=RETHE) 34.3 pg 28.2-35.7 RET-He is a direct estimate of recent functionalavailability of iron in the cell, therefore, decreasedRET-He is indicative of iron deficiency. [id number] 11:53:00* Test Item Value Reference Range Comments GLUBED (test code=GLUBED) 202 mg/dL 74-106 Performed by certified soyfreeze operator at [facility] - CT HEAD/BRAIN W/O [id number] 08:55:00 Name: JACINTO NEVAREZ [facility] : 1950 Age/S: 68 / F [address] Unit #: [id number] Loc: [place] [address] Phys: Harmony Ring MD Acct: [id number] Dis Date: Status: ADM IN PHONE #: [phone] Exam Date: 12/03/2018 08 FAX #: [phone] Reason: ALTERED MENTAL STATUS EXAMS: CPT CODE: [id number] CT HEAD/BRAIN W/O CONT 62188 HISTORY: Confusion. COMPARISON: September 02, 2017. CT brain without contrast: Automated exposure control. No acute intracranial bleeds or extra-axial collections are noted. No acute territorial vascular infarction is noted. 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 The sulci, gyri, ventricles and subarachnoid spaces and the basilar cisterns are normal for patient's age. No herniation or hydrocephalus or midline shift is noted. Mild periventricular ischemic gliosis is noted. Age-appropriate atrophy is noted as well. Portions of the visualized paranasal sinuses are normal. No obvious bony calvarial defect is noted. IMPRESSION: No acute intracranial bleeds or extra-axial collections. No acute territorial vascular infarction. No herniation or hydrocephalus or midline shift. Chronic white matter ischemic disease and atrophy . at 0855 Reported and signed by: Garret Ahuja M.D. CC: Harmony Ring MD; Rocael Clayton M.D.; Rinku Morgan M.D. Technologist:Edenilson Guerrero RT(R),(MR),(CT); CTDI: DLP: Trnscb Date/Time: 12/03/2018 (0855) t.SDR.TH4 Orig Print D/T: S: 12/03/2018 (0858) CTDI: DLP: PAGE 1 Signed Report [id number] 07:49:00* Test Item Value Reference Range Comments GLUBED (test code=GLUBED) 149 mg/dL 74-106 Performed by certified soyfreeze operator at [facility] URINALYSIS [id number] 07:43:00* Test Item Value Reference Range Comments UA COLOR (test code=COLU) LIGHT YELLOW YELLOW UA APPEARANCE (test code=APPU) CLEAR CLEAR UA GLUCOSE DIPSTICK (test code=DGLUU) 150 (1+) mg/dL NEGATIVE UA BILIRUBIN DIPSTICK (test code=BILU) NEGATIVE mg/dL NEGATIVE UA KETONE DIPSTICK (test code=KETU) 5 (Trace) mg/dL NEGATIVE UA SPECIFIC GRAVITY (test code=SGU) 1.016 1.001-1.035 UA BLOOD DIPSTICK (test code=PATI) Negative NEGATIVE UA PH DIPSTICK (test code=MARIBETH) 5.0 5.0-8.0 UA PROTEIN DIPSTICK (test code=PROU) >500 (3+) mg/dL NEGATIVE UA UROBILINIOGEN DIPSTICK (test code=URO) NEGATIVE mg/dL NEGATIVE UA NITRITE DIPSTICK (test code=KB) NEGATIVE NEGATIVE UA LEUKOCYTE ESTERASE W REFLEX (test code=LEUUR) TRACE NEGATIVE UA WBC (test code=WBCU) 21-50 #/HPF 0-5 UA RBC (test code=RBCU) 0-2 #/HPF 0-5 UA BACTERIA (test code=BACU) FEW #/HPF NONE SPECIMEN COMMENTS: Clean catchURINALYSIS [id number] 07:41:00* Test Item Value Reference Range Comments UA COLOR (test code=COLU) LIGHT YELLOW YELLOW UA APPEARANCE (test code=APPU) CLEAR CLEAR UA GLUCOSE DIPSTICK (test code=DGLUU) 150 (1+) mg/dL NEGATIVE UA BILIRUBIN DIPSTICK (test code=BILU) NEGATIVE mg/dL NEGATIVE UA KETONE DIPSTICK (test code=KETU) 5 (Trace) mg/dL NEGATIVE UA SPECIFIC GRAVITY (test code=SGU) 1.016 1.001-1.035 UA BLOOD DIPSTICK (test code=PATI) Negative NEGATIVE UA PH DIPSTICK (test code=MARIBETH) 5.0 5.0-8.0 UA PROTEIN DIPSTICK (test code=PROU) >500 (3+) mg/dL NEGATIVE UA UROBILINIOGEN DIPSTICK (test code=URO) NEGATIVE mg/dL NEGATIVE UA NITRITE DIPSTICK (test code=KB) NEGATIVE NEGATIVE UA LEUKOCYTE ESTERASE W REFLEX (test code=LEUUR) TRACE NEGATIVE UA WBC (test code=WBCU) per HPF 0-5 SPECIMEN COMMENTS: Clean catchURINALYSIS [id number] 07:41:00* Test Item Value Reference Range Comments UA COLOR (test code=COLU) LIGHT YELLOW YELLOW UA APPEARANCE (test code=APPU) CLEAR CLEAR UA GLUCOSE DIPSTICK (test code=DGLUU) 150 (1+) mg/dL NEGATIVE UA BILIRUBIN DIPSTICK (test code=BILU) NEGATIVE mg/dL NEGATIVE UA KETONE DIPSTICK (test code=KETU) 5 (Trace) mg/dL NEGATIVE UA SPECIFIC GRAVITY (test code=SGU) 1.016 1.001-1.035 UA BLOOD DIPSTICK (test code=PATI) Negative NEGATIVE UA PH DIPSTICK (test code=MARIBETH) 5.0 5.0-8.0 UA PROTEIN DIPSTICK (test code=PROU) >500 (3+) mg/dL NEGATIVE UA UROBILINIOGEN DIPSTICK (test code=URO) NEGATIVE mg/dL NEGATIVE UA NITRITE DIPSTICK (test code=KB) NEGATIVE NEGATIVE UA LEUKOCYTE ESTERASE W REFLEX (test code=LEUUR) TRACE NEGATIVE UA WBC (test code=WBCU) per HPF 0-5 SPECIMEN COMMENTS: Clean catchURINE K, [id number] 07:39:00* Test Item Value Reference Range Comments URINE K, RANDOM (test code=KU) 20.0 mmol/L 12-75 SPECIMEN COMMENTS: please add to this am labs if possibleUR PROTEIN/CREATININE [id number] 07:39:00* Test Item Value Reference Range Comments UR PROTEIN RANDOM (test code=PROTU) 277.8 mg/dL 0.0-11.9 Protein levels may be falsely elevated in patients withelevated level of aminoglycoside antibiotics in CSF and inhighly concentrated urine specimens. If false elevation issuspected, contact lab for alternated testing technique. UR CREATININE RANDOM (test code=CREATU) 61.0 mg/dL 30-125 PROTEIN/CREATININE RATIO (test code=P/CRATIO) 4.55 RATIO 0.0-0.20 SPECIMEN COMMENTS: please add to this am labs if possibleUR OSMOLALITY RANDOM 2018-12-03 07:39:00* Test Item Value Reference Range Comments UR OSMOLALITY RANDOM (test code=OSMOU) 532 mOsm/kg 48-962 SPECIMEN COMMENTS: please add to this am labs if possibleURINE K, RANDOM 2018-12-03 07:37:00* Test Item Value Reference Range Comments URINE K, RANDOM (test code=KU) 20.0 mmol/L 12-75 SPECIMEN COMMENTS: please add to this am labs if possibleUR PROTEIN/CREATININE [id number] 07:37:00* Test Item Value Reference Range Comments UR PROTEIN RANDOM (test code=PROTU) mg/dL 0.0-11.9 UR CREATININE RANDOM (test code=CREATU) mg/dL 30-125 PROTEIN/CREATININE RATIO (test code=P/CRATIO) RATIO 0.0-0.20 SPECIMEN COMMENTS: please add to this am labs if possibleUR OSMOLALITY RANDOM 2018-12-03 07:37:00* Test Item Value Reference Range Comments UR OSMOLALITY RANDOM (test code=OSMOU) 532 mOsm/kg 48-962 SPECIMEN COMMENTS: please add to this am labs if possibleLEGIONELLA ANTIGEN,URINE,[id number] 07:36:00* Test Item Value Reference Range Comments LEGIONELLA ANTIGEN,URINE,MARILYN (test code=LEGAGUR) NEGATIVE NEGATIVE URINE K, [id number] 07:30:00* Test Item Value Reference Range Comments URINE K, RANDOM (test code=KU) mmol/L 12-75 SPECIMEN COMMENTS: please add to this am labs if possibleUR PROTEIN/CREATININE [id number] 07:30:00* Test Item Value Reference Range Comments UR PROTEIN RANDOM (test code=PROTU) mg/dL 0.0-11.9 UR CREATININE RANDOM (test code=CREATU) mg/dL 30-125 PROTEIN/CREATININE RATIO (test code=P/CRATIO) RATIO 0.0-0.20 SPECIMEN COMMENTS: please add to this am labs if possibleUR OSMOLALITY RANDOM 2018-12-03 07:30:00* Test Item Value Reference Range Comments UR OSMOLALITY RANDOM (test code=OSMOU) 532 mOsm/kg 48-962 SPECIMEN COMMENTS: please add to this am labs if possibleBASIC METABOLIC PANEL 2018-12-03 05:28:00* Test Item Value Reference Range Comments SODIUM (test code=NA) 143 mmol/L 136-145 POTASSIUM (test code=K) 3.4 mmol/L 3.5-5.1 CHLORIDE (test code=CL) 112.0 mmol/L 98-107 CARBON DIOXIDE (test code=CO2) 19.0 mmol/L 21-32 ANION GAP (test code=GAP) 15.4 10-20 GLUCOSE (test code=GLU) 180 mg/dL 74-106 BLOOD UREA NITROGEN (test code=BUN) 44 mg/dL 7-18 GLOMERULAR FILTRATION RATE (test code=GFR) 50 mL/min >=60 Estimated GFR by using Modified MDRD formula.Chronic kidney disease is defined as either kidney damageor GFR <60 mL/min/1.73 m2 for >3 months. CREATININE (test code=CREAT) 1.10 mg/dL 0.55-1.02 Note change in reference range due to change in reagent. BUN/CREATININE RATIO (test code=BUN/CREA) 41.1 10-20 CALCIUM (test code=CA) 8.1 mg/dL 8.5-10.1 [id number] 20:41:00* Test Item Value Reference Range Comments GLUBED (test code=GLUBED) 173 mg/dL 74-106 Performed by certified soyfreeze operator at [facility] [id number] 18:28:00* Test Item Value Reference Range Comments GLUBED (test code=GLUBED) 74 mg/dL 74-106 Performed by certified soyfreeze operator at [facility] - XR CHEST 1 [id number] 14:23:00 FAX: Mango Vogel MD [phone] [place]: B St: ADM FAX: Harmony James MD FAX: Rocael Rodas III [phone] Name: JACINTO NEVAREZ [facility] : 1950 Age/S: 68/F [address] [facility] Unit #: [id number] Loc: V.3030 [place] [address] Phys: Mango Davis MD Acct: [id number] Dis Date: Status: ADM IN ONE #: [phone] Exam Date: 12/02/2018 1406 FAX #: [phone] Reason: COngestion and elevated WBC EXAMS: CPT CODE: [id number] XR CHEST 1 V 12865 HISTORY: Conge stion and elevated WBC TECHNIQUE: AP chest x-ray COM PARISON: 11/28/18 FINDINGS: No airspace consolidation or pleural effusion. Elevated right hemidiaphragm. Normal heart size. Med iastinal silhouette is unremarkable. Degenerative changes of the spine. IMPRESSION: No airspace consolidation or pleural effusion. at 1429 Reported and signed by: Kathleen Sethi D.O. CC: Mango Davis MD; Harmony Ring MD; Rocael Clayton M.D. Technologi st: Kenya Hernandez RT(R); JOSE J SHAH RT(R) Trnscrd Date/Time/By: 12/02/2018 (4408) : By: [email or web address] Orig Print D/T: S: 12/02/2018 (0048) PAGE 1 Signed Report OSMOLALITY [id number] 13:26:00* Test Item Value Reference Range Comments OSMOLALITY SERUM (test code=OSMO) 322 mOsm/kg 275-295 [id number] 11:49:00* Test Item Value Reference Range Comments GLUBED (test code=GLUBED) 406 mg/dL 74-106 Performed by certified soyfreeze operator at [facility] [id number] 08:14:00* Test Item Value Reference Range Comments GLUBED (test code=GLUBED) 154 mg/dL 74-106 Performed by certified soyfreeze operator at [facility] CBC W/MANUAL [id number] 05:56:00* Test Item Value Reference Range Comments WHITE BLOOD CELL (test code=WBC) 28.3 K/mm3 4.5-12.5 RED BLOOD CELL (test code=RBC) 3.43 mill/mm3 3.7-5.2 HEMOGLOBIN (test code=HGB) 9.6 gram/dL 11.5-15.5 HEMATOCRIT (test code=HCT) 31.2 % 36.0-46.0 MEAN CELL VOLUME (test code=MCV) 91.0 fL 80-98 MEAN CELL HGB (test code=MCH) 28.0 picogram 27.0-33.0 MEAN CELL HGB CONCETRATION (test code=MCHC) 30.8 gram/dL 33.0-36.0 RED CELL DISTRIBUTION WIDTH (test code=RDW) 15.4 % 11.6-16.2 RED CELL DISTRIBUTION WIDTH SD (test code=RDW-SD) 50.8 fL 37.0-51.0 PLATELET COUNT (test code=PLT) 268 K/mm3 150-450 MEAN PLATELET VOLUME (test code=MPV) 10.2 fL 6.7-11.0 IMMATURE GRANULOCYTE % (test code=IG%) 2.2 % 0.0-5.0 NUCLEATED RBC % (test code=NRBC%) 0.1 % 0-0 NEUTROPHIL # (test code=NT#) 7.14 K/mm3 1.8-7.7 IMMATURE GRANULOCYTE # (test code=IG#) 0.62 x10 3/uL 0-0.03 LYMPHOCYTE # (test code=LY#) 19.49 K/mm3 1.0-5.0 MONOCYTE # (test code=MO#) 1.01 K/mm3 0-0.8 EOSINOPHIL # (test code=EO#) 0.01 K/mm3 0.0-0.5 BASOPHIL # (test code=BA#) 0.07 K/mm3 0.0-0.2 NUCLEATED RBC # (test code=NRBC#) 0.02 K/mm3 0.0-0.1 MANUAL DIFF REQUIRED (test code=MDIFF) YES STAIN ACCEPTABILITY (test code=STN ACCEPTABLE) STAIN ACCEPTABLE TOTAL CELLS COUNTED (test code=TCC) 115 #CELLS SEGMENTED NEUTROPHILS (test code=SEG) 33.9 % 39-69 BAND NEUTROPHIL (test code=BAND) 0 % 0-10 LYMPHOCYTE (test code=LYMPH) 55.6 % 25-55 REACTIVE LYMPH (test code=RELYMPH) 0 % MONOCYTE (test code=MON) 2.6 % 0-10 EOSINOPHIL (test code=EOS) 0 % 0.0-5.0 BASOPHIL (test code=BASO) 0 % 0-1.0 METAMYELOCYTE (test code=META) 0 % 0-0 MYELOCYTE (test code=MYELO) 0.9 % 0.0-0.0 PROMYELOCYTE (test code=PROM) 0 % 0-0 PLATELET ESTIMATE (test code=PLTEST) ADEQUATE PLATELET MORPHOLOGY (test code=PLTMORPH) NORMAL IMMATURE FORMS (test code=IMMAT) 7.0 % COMPREHENSIVE METABOLIC [id number] 05:52:00* Test Item Value Reference Range Comments SODIUM (test code=NA) 143 mmol/L 136-145 POTASSIUM (test code=K) 3.6 mmol/L 3.5-5.1 CHLORIDE (test code=CL) 113.0 mmol/L 98-107 CARBON DIOXIDE (test code=CO2) 18.0 mmol/L 21-32 ANION GAP (test code=GAP) 15.6 10-20 GLUCOSE (test code=GLU) 140 mg/dL 74-106 BLOOD UREA NITROGEN (test code=BUN) 42 mg/dL 7-18 GLOMERULAR FILTRATION RATE (test code=GFR) 45 mL/min >=60 Estimated GFR by using Modified MDRD formula.Chronic kidney disease is defined as either kidney damageor GFR <60 mL/min/1.73 m2 for >3 months. CREATININE (test code=CREAT) 1.20 mg/dL 0.55-1.02 Note change in reference range due to change in reagent. BUN/CREATININE RATIO (test code=BUN/CREA) 35.6 10-20 TOTAL PROTEIN (test code=PROT) 7.7 gram/dL 6.4-8.2 ALBUMIN (test code=ALB) 3.0 g/dL 3.4-5.0 GLOBULIN (test code=GLOB) 4.7 gram/dL 2.7-4.2 ALBUMIN/GLOBULIN RATIO (test code=A/G) 0.6 0.75-1.50 CALCIUM (test code=CA) 8.4 mg/dL 8.5-10.1 BILIRUBIN TOTAL (test code=BILT) 0.20 mg/dL 0.0-1.0 SGOT/AST (test code=AST) 13 IUnit/L 15-37 SGPT/ALT (test code=ALT) 12 IUnit/L 12-78 ALKALINE PHOSPHATASE TOTAL (test code=ALKP) 127 IUnit/L 45-117 Note change in reference range due to change in reagent. COMPREHENSIVE METABOLIC [id number] 05:44:00* Test Item Value Reference Range Comments SODIUM (test code=NA) 143 mmol/L 136-145 POTASSIUM (test code=K) 3.6 mmol/L 3.5-5.1 CHLORIDE (test code=CL) 113.0 mmol/L 98-107 CARBON DIOXIDE (test code=CO2) mmol/L 21-32 ANION GAP (test code=GAP) 10-20 GLUCOSE (test code=GLU) mg/dL 74-106 BLOOD UREA NITROGEN (test code=BUN) mg/dL 7-18 GLOMERULAR FILTRATION RATE (test code=GFR) mL/min >=60 CREATININE (test code=CREAT) mg/dL 0.55-1.02 BUN/CREATININE RATIO (test code=BUN/CREA) 10-20 TOTAL PROTEIN (test code=PROT) gram/dL 6.4-8.2 ALBUMIN (test code=ALB) g/dL 3.4-5.0 GLOBULIN (test code=GLOB) gram/dL 2.7-4.2 ALBUMIN/GLOBULIN RATIO (test code=A/G) 0.75-1.50 CALCIUM (test code=CA) mg/dL 8.5-10.1 BILIRUBIN TOTAL (test code=BILT) mg/dL 0.0-1.0 SGOT/AST (test code=AST) IUnit/L 15-37 SGPT/ALT (test code=ALT) IUnit/L 12-78 ALKALINE PHOSPHATASE TOTAL (test code=ALKP) IUnit/L 45-117 CBC W/MANUAL [id number] 05:34:00* Test Item Value Reference Range Comments WHITE BLOOD CELL (test code=WBC) 28.3 K/mm3 4.5-12.5 RED BLOOD CELL (test code=RBC) 3.43 mill/mm3 3.7-5.2 HEMOGLOBIN (test code=HGB) 9.6 gram/dL 11.5-15.5 HEMATOCRIT (test code=HCT) 31.2 % 36.0-46.0 MEAN CELL VOLUME (test code=MCV) 91.0 fL 80-98 MEAN CELL HGB (test code=MCH) 28.0 picogram 27.0-33.0 MEAN CELL HGB CONCETRATION (test code=MCHC) 30.8 gram/dL 33.0-36.0 RED CELL DISTRIBUTION WIDTH (test code=RDW) 15.4 % 11.6-16.2 RED CELL DISTRIBUTION WIDTH SD (test code=RDW-SD) 50.8 fL 37.0-51.0 PLATELET COUNT (test code=PLT) 268 K/mm3 150-450 MEAN PLATELET VOLUME (test code=MPV) 10.2 fL 6.7-11.0 IMMATURE GRANULOCYTE % (test code=IG%) 2.2 % 0.0-5.0 NUCLEATED RBC % (test code=NRBC%) 0.1 % 0-0 NEUTROPHIL # (test code=NT#) 7.14 K/mm3 1.8-7.7 IMMATURE GRANULOCYTE # (test code=IG#) 0.62 x10 3/uL 0-0.03 LYMPHOCYTE # (test code=LY#) 19.49 K/mm3 1.0-5.0 MONOCYTE # (test code=MO#) 1.01 K/mm3 0-0.8 EOSINOPHIL # (test code=EO#) 0.01 K/mm3 0.0-0.5 BASOPHIL # (test code=BA#) 0.07 K/mm3 0.0-0.2 NUCLEATED RBC # (test code=NRBC#) 0.02 K/mm3 0.0-0.1 MANUAL DIFF REQUIRED (test code=MDIFF) YES STAIN ACCEPTABILITY (test code=STN ACCEPTABLE) TOTAL CELLS COUNTED (test code=TCC) #CELLS SEGMENTED NEUTROPHILS (test code=SEG) % 39-69 LYMPHOCYTE (test code=LYMPH) % 25-55 MONOCYTE (test code=MON) % 0-10 EOSINOPHIL (test code=EOS) % 0.0-5.0 CABOT RINGS (test code=CAB) MORPHOLOGY COMMENT (test code=MOC) PLATELET ESTIMATE (test code=PLTEST) PLATELET MORPHOLOGY (test code=PLTMORPH) CBC W/MANUAL [id number] 05:34:00* Test Item Value Reference Range Comments WHITE BLOOD CELL (test code=WBC) 28.3 K/mm3 4.5-12.5 RED BLOOD CELL (test code=RBC) 3.43 mill/mm3 3.7-5.2 HEMOGLOBIN (test code=HGB) 9.6 gram/dL 11.5-15.5 HEMATOCRIT (test code=HCT) 31.2 % 36.0-46.0 MEAN CELL VOLUME (test code=MCV) 91.0 fL 80-98 MEAN CELL HGB (test code=MCH) 28.0 picogram 27.0-33.0 MEAN CELL HGB CONCETRATION (test code=MCHC) 30.8 gram/dL 33.0-36.0 RED CELL DISTRIBUTION WIDTH (test code=RDW) 15.4 % 11.6-16.2 RED CELL DISTRIBUTION WIDTH SD (test code=RDW-SD) 50.8 fL 37.0-51.0 PLATELET COUNT (test code=PLT) 268 K/mm3 150-450 MEAN PLATELET VOLUME (test code=MPV) 10.2 fL 6.7-11.0 IMMATURE GRANULOCYTE % (test code=IG%) 2.2 % 0.0-5.0 NUCLEATED RBC % (test code=NRBC%) 0.1 % 0-0 NEUTROPHIL # (test code=NT#) 7.14 K/mm3 1.8-7.7 IMMATURE GRANULOCYTE # (test code=IG#) 0.62 x10 3/uL 0-0.03 LYMPHOCYTE # (test code=LY#) 19.49 K/mm3 1.0-5.0 MONOCYTE # (test code=MO#) 1.01 K/mm3 0-0.8 EOSINOPHIL # (test code=EO#) 0.01 K/mm3 0.0-0.5 BASOPHIL # (test code=BA#) 0.07 K/mm3 0.0-0.2 NUCLEATED RBC # (test code=NRBC#) 0.02 K/mm3 0.0-0.1 MANUAL DIFF REQUIRED (test code=MDIFF) YES STAIN ACCEPTABILITY (test code=STN ACCEPTABLE) TOTAL CELLS COUNTED (test code=TCC) #CELLS SEGMENTED NEUTROPHILS (test code=SEG) % 39-69 LYMPHOCYTE (test code=LYMPH) % 25-55 MONOCYTE (test code=MON) % 0-10 EOSINOPHIL (test code=EOS) % 0.0-5.0 CABOT RINGS (test code=CAB) MORPHOLOGY COMMENT (test code=MOC) PLATELET ESTIMATE (test code=PLTEST) PLATELET MORPHOLOGY (test code=PLTMORPH) CBC W/MANUAL [id number] 05:34:00* Test Item Value Reference Range Comments WHITE BLOOD CELL (test code=WBC) 28.3 K/mm3 4.5-12.5 RED BLOOD CELL (test code=RBC) 3.43 mill/mm3 3.7-5.2 HEMOGLOBIN (test code=HGB) 9.6 gram/dL 11.5-15.5 HEMATOCRIT (test code=HCT) 31.2 % 36.0-46.0 MEAN CELL VOLUME (test code=MCV) 91.0 fL 80-98 MEAN CELL HGB (test code=MCH) 28.0 picogram 27.0-33.0 MEAN CELL HGB CONCETRATION (test code=MCHC) 30.8 gram/dL 33.0-36.0 RED CELL DISTRIBUTION WIDTH (test code=RDW) 15.4 % 11.6-16.2 RED CELL DISTRIBUTION WIDTH SD (test code=RDW-SD) 50.8 fL 37.0-51.0 PLATELET COUNT (test code=PLT) 268 K/mm3 150-450 MEAN PLATELET VOLUME (test code=MPV) 10.2 fL 6.7-11.0 IMMATURE GRANULOCYTE % (test code=IG%) 2.2 % 0.0-5.0 NUCLEATED RBC % (test code=NRBC%) 0.1 % 0-0 NEUTROPHIL # (test code=NT#) 7.14 K/mm3 1.8-7.7 IMMATURE GRANULOCYTE # (test code=IG#) 0.62 x10 3/uL 0-0.03 LYMPHOCYTE # (test code=LY#) 19.49 K/mm3 1.0-5.0 MONOCYTE # (test code=MO#) 1.01 K/mm3 0-0.8 EOSINOPHIL # (test code=EO#) 0.01 K/mm3 0.0-0.5 BASOPHIL # (test code=BA#) 0.07 K/mm3 0.0-0.2 NUCLEATED RBC # (test code=NRBC#) 0.02 K/mm3 0.0-0.1 MANUAL DIFF REQUIRED (test code=MDIFF) YES STAIN ACCEPTABILITY (test code=STN ACCEPTABLE) TOTAL CELLS COUNTED (test code=TCC) #CELLS SEGMENTED NEUTROPHILS (test code=SEG) % 39-69 LYMPHOCYTE (test code=LYMPH) % 25-55 MONOCYTE (test code=MON) % 0-10 EOSINOPHIL (test code=EOS) % 0.0-5.0 MORPHOLOGY COMMENT (test code=MOC) PLATELET ESTIMATE (test code=PLTEST) PLATELET MORPHOLOGY (test code=PLTMORPH) CBC W/MANUAL [id number] 05:34:00* Test Item Value Reference Range Comments WHITE BLOOD CELL (test code=WBC) 28.3 K/mm3 4.5-12.5 RED BLOOD CELL (test code=RBC) 3.43 mill/mm3 3.7-5.2 HEMOGLOBIN (test code=HGB) 9.6 gram/dL 11.5-15.5 HEMATOCRIT (test code=HCT) 31.2 % 36.0-46.0 MEAN CELL VOLUME (test code=MCV) 91.0 fL 80-98 MEAN CELL HGB (test code=MCH) 28.0 picogram 27.0-33.0 MEAN CELL HGB CONCETRATION (test code=MCHC) 30.8 gram/dL 33.0-36.0 RED CELL DISTRIBUTION WIDTH (test code=RDW) 15.4 % 11.6-16.2 RED CELL DISTRIBUTION WIDTH SD (test code=RDW-SD) 50.8 fL 37.0-51.0 PLATELET COUNT (test code=PLT) 268 K/mm3 150-450 MEAN PLATELET VOLUME (test code=MPV) 10.2 fL 6.7-11.0 IMMATURE GRANULOCYTE % (test code=IG%) 2.2 % 0.0-5.0 NUCLEATED RBC % (test code=NRBC%) 0.1 % 0-0 NEUTROPHIL # (test code=NT#) 7.14 K/mm3 1.8-7.7 IMMATURE GRANULOCYTE # (test code=IG#) 0.62 x10 3/uL 0-0.03 LYMPHOCYTE # (test code=LY#) 19.49 K/mm3 1.0-5.0 MONOCYTE # (test code=MO#) 1.01 K/mm3 0-0.8 EOSINOPHIL # (test code=EO#) 0.01 K/mm3 0.0-0.5 BASOPHIL # (test code=BA#) 0.07 K/mm3 0.0-0.2 NUCLEATED RBC # (test code=NRBC#) 0.02 K/mm3 0.0-0.1 MANUAL DIFF REQUIRED (test code=MDIFF) YES STAIN ACCEPTABILITY (test code=STN ACCEPTABLE) TOTAL CELLS COUNTED (test code=TCC) #CELLS SEGMENTED NEUTROPHILS (test code=SEG) % 39-69 LYMPHOCYTE (test code=LYMPH) % 25-55 MONOCYTE (test code=MON) % 0-10 MORPHOLOGY COMMENT (test code=MOC) PLATELET ESTIMATE (test code=PLTEST) PLATELET MORPHOLOGY (test code=PLTMORPH) CBC W/MANUAL [id number] 05:34:00* Test Item Value Reference Range Comments WHITE BLOOD CELL (test code=WBC) 28.3 K/mm3 4.5-12.5 RED BLOOD CELL (test code=RBC) 3.43 mill/mm3 3.7-5.2 HEMOGLOBIN (test code=HGB) 9.6 gram/dL 11.5-15.5 HEMATOCRIT (test code=HCT) 31.2 % 36.0-46.0 MEAN CELL VOLUME (test code=MCV) 91.0 fL 80-98 MEAN CELL HGB (test code=MCH) 28.0 picogram 27.0-33.0 MEAN CELL HGB CONCETRATION (test code=MCHC) 30.8 gram/dL 33.0-36.0 RED CELL DISTRIBUTION WIDTH (test code=RDW) 15.4 % 11.6-16.2 RED CELL DISTRIBUTION WIDTH SD (test code=RDW-SD) 50.8 fL 37.0-51.0 PLATELET COUNT (test code=PLT) 268 K/mm3 150-450 MEAN PLATELET VOLUME (test code=MPV) 10.2 fL 6.7-11.0 IMMATURE GRANULOCYTE % (test code=IG%) 2.2 % 0.0-5.0 NUCLEATED RBC % (test code=NRBC%) 0.1 % 0-0 NEUTROPHIL # (test code=NT#) 7.14 K/mm3 1.8-7.7 IMMATURE GRANULOCYTE # (test code=IG#) 0.62 x10 3/uL 0-0.03 LYMPHOCYTE # (test code=LY#) 19.49 K/mm3 1.0-5.0 MONOCYTE # (test code=MO#) 1.01 K/mm3 0-0.8 EOSINOPHIL # (test code=EO#) 0.01 K/mm3 0.0-0.5 BASOPHIL # (test code=BA#) 0.07 K/mm3 0.0-0.2 NUCLEATED RBC # (test code=NRBC#) 0.02 K/mm3 0.0-0.1 MANUAL DIFF REQUIRED (test code=MDIFF) YES STAIN ACCEPTABILITY (test code=STN ACCEPTABLE) TOTAL CELLS COUNTED (test code=TCC) #CELLS SEGMENTED NEUTROPHILS (test code=SEG) % 39-69 LYMPHOCYTE (test code=LYMPH) % 25-55 MONOCYTE (test code=MON) % 0-10 EOSINOPHIL (test code=EOS) % 0.0-5.0 CABOT RINGS (test code=CAB) MORPHOLOGY COMMENT (test code=MOC) PLATELET ESTIMATE (test code=PLTEST) PLATELET MORPHOLOGY (test code=PLTMORPH) [id number] 23:01:00* Test Item Value Reference Range Comments GLUBED (test code=GLUBED) 229 mg/dL 74-106 Performed by certified soyfreeze operator at [facility] [id number] 20:33:00* Test Item Value Reference Range Comments GLUBED (test code=GLUBED) 307 mg/dL 74-106 Performed by certified soyfreeze operator at [facility] [id number] 12:34:00* Test Item Value Reference Range Comments GLUBED (test code=GLUBED) 213 mg/dL 74-106 Performed by certified soyfreeze operator at [facility] [id number] 08:35:00* Test Item Value Reference Range Comments GLUBED (test code=GLUBED) 185 mg/dL 74-106 Performed by certified soyfreeze operator at [facility] [id number] 03:09:00* Test Item Value Reference Range Comments LEVETIRACETAM (test code=LEVTAM) 60.8 ug/mL 10.0-40.0 This test was developed and its performance characteristicsdetermined by [facility]. It has not been cleared orapproved by the Food and Drug Administration.Performed At: [address] [id number] Dobbs MD Ph:[phone] [id number] 19:59:00* Test Item Value Reference Range Comments GLUBED (test code=GLUBED) 221 mg/dL 74-106 Performed by certified soyfreeze operator at [facility] [id number] 17:23:00* Test Item Value Reference Range Comments GLUBED (test code=GLUBED) 272 mg/dL 74-106 Performed by certified soyfreeze operator at [facility] - XR SWLW FUNC W/C [id number] 15:43:00 FAX: Mango Vogel MD [phone] [place]: B St: ADM FAX: Harmony James MD FAX: Rocael Rodas III [phone] Name: JACINTO NEVAREZ [facility] : 1950 Age/S: 68/F [address] [facility] Unit #: [id number] Loc: V.3030 [place] [address] Phys: Mango Davis MD Acct: [id number] Dis Date: Status: ADM IN ONE #: [phone] Exam Date: 11/30/2018 1519 FAX #: [phone] Reason: COugh possible aspiration EXAMS: CPT CODE: [id number] XR SWLW FUNC W/C V 57066 REASON FOR EXAM: COugh possible aspiration EXAM ORDER DATE: 11/30/2018 3:42 PM Attending M.D.: Mango Davis MD PROCEDURE: B arium swallow FINDINGS: The exam was performed to assist the [facility] pathologist in performing the barium swallow exam. The patient was givi ng teaspoon, cup, straw of thin liquid, teaspoon, cup, straw of thick liqu id, puree, mechanical soft food coated with barium, and regular food coated with barium to swallow. Fluoroscopic time:119 sec Fluoroscopic dose:6.5 mGy Number of images obtained: 5 IMP RESSION: Penetration with thin liquid and nectar liquid. Please refer to the speech pathologist report at 1545 Reported and signed by: Randolph Muniz M.D. CC: Mango Davis MD; Harmony Ring MD; Rocael thompson M.D. Technologist: GRETTA CHANEY RT(R); Ying Morton RT(R) T rnscrd Date/Time/By: 11/30/2018 (1767) : By: Torres Orig Print D/T: S: 11/30/2018 (6345) PAGE 1 Sign ed Report [id number] 12:13:00* Test Item Value Reference Range Comments GLUBED (test code=GLUBED) 192 mg/dL 74-106 Performed by certified soyfreeze operator at [facility] [id number] 08:56:00* Test Item Value Reference Range Comments GLUBED (test code=GLUBED) 114 mg/dL 74-106 Performed by certified soyfreeze operator at [facility] CBC W/MANUAL [id number] 04:55:00* Test Item Value Reference Range Comments WHITE BLOOD CELL (test code=WBC) 12.3 K/mm3 4.5-12.5 RED BLOOD CELL (test code=RBC) 3.25 mill/mm3 3.7-5.2 HEMOGLOBIN (test code=HGB) 9.2 gram/dL 11.5-15.5 HEMATOCRIT (test code=HCT) 29.0 % 36.0-46.0 MEAN CELL VOLUME (test code=MCV) 89.2 fL 80-98 MEAN CELL HGB (test code=MCH) 28.3 picogram 27.0-33.0 MEAN CELL HGB CONCETRATION (test code=MCHC) 31.7 gram/dL 33.0-36.0 RED CELL DISTRIBUTION WIDTH (test code=RDW) 15.1 % 11.6-16.2 RED CELL DISTRIBUTION WIDTH SD (test code=RDW-SD) 49.5 fL 37.0-51.0 PLATELET COUNT (test code=PLT) 182 K/mm3 150-450 MEAN PLATELET VOLUME (test code=MPV) 10.1 fL 6.7-11.0 IMMATURE GRANULOCYTE % (test code=IG%) 1.6 % 0.0-5.0 NUCLEATED RBC % (test code=NRBC%) 0.0 % 0-0 NEUTROPHIL # (test code=NT#) 4.91 K/mm3 1.8-7.7 IMMATURE GRANULOCYTE # (test code=IG#) 0.20 x10 3/uL 0-0.03 LYMPHOCYTE # (test code=LY#) 6.62 K/mm3 1.0-5.0 MONOCYTE # (test code=MO#) 0.48 K/mm3 0-0.8 EOSINOPHIL # (test code=EO#) 0.04 K/mm3 0.0-0.5 BASOPHIL # (test code=BA#) 0.04 K/mm3 0.0-0.2 NUCLEATED RBC # (test code=NRBC#) 0.00 K/mm3 0.0-0.1 MANUAL DIFF REQUIRED (test code=MDIFF) YES STAIN ACCEPTABILITY (test code=STN ACCEPTABLE) STAIN ACCEPTABLE TOTAL CELLS COUNTED (test code=TCC) 115 #CELLS SEGMENTED NEUTROPHILS (test code=SEG) 45.2 % 39-69 BAND NEUTROPHIL (test code=BAND) 1.7 % 0-10 LYMPHOCYTE (test code=LYMPH) 52.2 % 25-55 REACTIVE LYMPH (test code=RELYMPH) 0 % MONOCYTE (test code=MON) 0 % 0-10 EOSINOPHIL (test code=EOS) 0 % 0.0-5.0 BASOPHIL (test code=BASO) 0 % 0-1.0 METAMYELOCYTE (test code=META) 0 % 0-0 MYELOCYTE (test code=MYELO) 0.9 % 0.0-0.0 PROMYELOCYTE (test code=PROM) 0 % 0-0 ANISOCYTOSIS (test code=ANISO) 1+ MICROCYTOSIS (test code=MICR) 1+ PLATELET ESTIMATE (test code=PLTEST) ADEQUATE PLATELET MORPHOLOGY (test code=PLTMORPH) NORMAL IMMATURE FORMS (test code=IMMAT) 0 % BASIC METABOLIC [id number] 04:46:00* Test Item Value Reference Range Comments SODIUM (test code=NA) 144 mmol/L 136-145 POTASSIUM (test code=K) 3.9 mmol/L 3.5-5.1 CHLORIDE (test code=CL) 114.0 mmol/L 98-107 CARBON DIOXIDE (test code=CO2) 18.0 mmol/L 21-32 ANION GAP (test code=GAP) 15.9 10-20 GLUCOSE (test code=GLU) 162 mg/dL 74-106 BLOOD UREA NITROGEN (test code=BUN) 34 mg/dL 7-18 GLOMERULAR FILTRATION RATE (test code=GFR) 50 mL/min >=60 Estimated GFR by using Modified MDRD formula.Chronic kidney disease is defined as either kidney damageor GFR <60 mL/min/1.73 m2 for >3 months. CREATININE (test code=CREAT) 1.10 mg/dL 0.55-1.02 Note change in reference range due to change in reagent. BUN/CREATININE RATIO (test code=BUN/CREA) 31.5 10-20 CALCIUM (test code=CA) 7.7 mg/dL 8.5-10.1 CBC W/MANUAL [id number] 04:32:00* Test Item Value Reference Range Comments WHITE BLOOD CELL (test code=WBC) 12.3 K/mm3 4.5-12.5 RED BLOOD CELL (test code=RBC) 3.25 mill/mm3 3.7-5.2 HEMOGLOBIN (test code=HGB) 9.2 gram/dL 11.5-15.5 HEMATOCRIT (test code=HCT) 29.0 % 36.0-46.0 MEAN CELL VOLUME (test code=MCV) 89.2 fL 80-98 MEAN CELL HGB (test code=MCH) 28.3 picogram 27.0-33.0 MEAN CELL HGB CONCETRATION (test code=MCHC) 31.7 gram/dL 33.0-36.0 RED CELL DISTRIBUTION WIDTH (test code=RDW) 15.1 % 11.6-16.2 RED CELL DISTRIBUTION WIDTH SD (test code=RDW-SD) 49.5 fL 37.0-51.0 PLATELET COUNT (test code=PLT) 182 K/mm3 150-450 MEAN PLATELET VOLUME (test code=MPV) 10.1 fL 6.7-11.0 IMMATURE GRANULOCYTE % (test code=IG%) 1.6 % 0.0-5.0 NUCLEATED RBC % (test code=NRBC%) 0.0 % 0-0 NEUTROPHIL # (test code=NT#) 4.91 K/mm3 1.8-7.7 IMMATURE GRANULOCYTE # (test code=IG#) 0.20 x10 3/uL 0-0.03 LYMPHOCYTE # (test code=LY#) 6.62 K/mm3 1.0-5.0 MONOCYTE # (test code=MO#) 0.48 K/mm3 0-0.8 EOSINOPHIL # (test code=EO#) 0.04 K/mm3 0.0-0.5 BASOPHIL # (test code=BA#) 0.04 K/mm3 0.0-0.2 NUCLEATED RBC # (test code=NRBC#) 0.00 K/mm3 0.0-0.1 MANUAL DIFF REQUIRED (test code=MDIFF) YES STAIN ACCEPTABILITY (test code=STN ACCEPTABLE) TOTAL CELLS COUNTED (test code=TCC) #CELLS SEGMENTED NEUTROPHILS (test code=SEG) % 39-69 LYMPHOCYTE (test code=LYMPH) % 25-55 MONOCYTE (test code=MON) % 0-10 EOSINOPHIL (test code=EOS) % 0.0-5.0 CABOT RINGS (test code=CAB) MORPHOLOGY COMMENT (test code=MOC) PLATELET ESTIMATE (test code=PLTEST) PLATELET MORPHOLOGY (test code=PLTMORPH) CBC W/MANUAL [id number] 04:32:00* Test Item Value Reference Range Comments WHITE BLOOD CELL (test code=WBC) 12.3 K/mm3 4.5-12.5 RED BLOOD CELL (test code=RBC) 3.25 mill/mm3 3.7-5.2 HEMOGLOBIN (test code=HGB) 9.2 gram/dL 11.5-15.5 HEMATOCRIT (test code=HCT) 29.0 % 36.0-46.0 MEAN CELL VOLUME (test code=MCV) 89.2 fL 80-98 MEAN CELL HGB (test code=MCH) 28.3 picogram 27.0-33.0 MEAN CELL HGB CONCETRATION (test code=MCHC) 31.7 gram/dL 33.0-36.0 RED CELL DISTRIBUTION WIDTH (test code=RDW) 15.1 % 11.6-16.2 RED CELL DISTRIBUTION WIDTH SD (test code=RDW-SD) 49.5 fL 37.0-51.0 PLATELET COUNT (test code=PLT) 182 K/mm3 150-450 MEAN PLATELET VOLUME (test code=MPV) 10.1 fL 6.7-11.0 IMMATURE GRANULOCYTE % (test code=IG%) 1.6 % 0.0-5.0 NUCLEATED RBC % (test code=NRBC%) 0.0 % 0-0 NEUTROPHIL # (test code=NT#) 4.91 K/mm3 1.8-7.7 IMMATURE GRANULOCYTE # (test code=IG#) 0.20 x10 3/uL 0-0.03 LYMPHOCYTE # (test code=LY#) 6.62 K/mm3 1.0-5.0 MONOCYTE # (test code=MO#) 0.48 K/mm3 0-0.8 EOSINOPHIL # (test code=EO#) 0.04 K/mm3 0.0-0.5 BASOPHIL # (test code=BA#) 0.04 K/mm3 0.0-0.2 NUCLEATED RBC # (test code=NRBC#) 0.00 K/mm3 0.0-0.1 MANUAL DIFF REQUIRED (test code=MDIFF) YES STAIN ACCEPTABILITY (test code=STN ACCEPTABLE) TOTAL CELLS COUNTED (test code=TCC) #CELLS SEGMENTED NEUTROPHILS (test code=SEG) % 39-69 LYMPHOCYTE (test code=LYMPH) % 25-55 MONOCYTE (test code=MON) % 0-10 EOSINOPHIL (test code=EOS) % 0.0-5.0 CABOT RINGS (test code=CAB) MORPHOLOGY COMMENT (test code=MOC) PLATELET ESTIMATE (test code=PLTEST) PLATELET MORPHOLOGY (test code=PLTMORPH) CBC W/MANUAL [id number] 04:32:00* Test Item Value Reference Range Comments WHITE BLOOD CELL (test code=WBC) 12.3 K/mm3 4.5-12.5 RED BLOOD CELL (test code=RBC) 3.25 mill/mm3 3.7-5.2 HEMOGLOBIN (test code=HGB) 9.2 gram/dL 11.5-15.5 HEMATOCRIT (test code=HCT) 29.0 % 36.0-46.0 MEAN CELL VOLUME (test code=MCV) 89.2 fL 80-98 MEAN CELL HGB (test code=MCH) 28.3 picogram 27.0-33.0 MEAN CELL HGB CONCETRATION (test code=MCHC) 31.7 gram/dL 33.0-36.0 RED CELL DISTRIBUTION WIDTH (test code=RDW) 15.1 % 11.6-16.2 RED CELL DISTRIBUTION WIDTH SD (test code=RDW-SD) 49.5 fL 37.0-51.0 PLATELET COUNT (test code=PLT) 182 K/mm3 150-450 MEAN PLATELET VOLUME (test code=MPV) 10.1 fL 6.7-11.0 IMMATURE GRANULOCYTE % (test code=IG%) 1.6 % 0.0-5.0 NUCLEATED RBC % (test code=NRBC%) 0.0 % 0-0 NEUTROPHIL # (test code=NT#) 4.91 K/mm3 1.8-7.7 IMMATURE GRANULOCYTE # (test code=IG#) 0.20 x10 3/uL 0-0.03 LYMPHOCYTE # (test code=LY#) 6.62 K/mm3 1.0-5.0 MONOCYTE # (test code=MO#) 0.48 K/mm3 0-0.8 EOSINOPHIL # (test code=EO#) 0.04 K/mm3 0.0-0.5 BASOPHIL # (test code=BA#) 0.04 K/mm3 0.0-0.2 NUCLEATED RBC # (test code=NRBC#) 0.00 K/mm3 0.0-0.1 MANUAL DIFF REQUIRED (test code=MDIFF) YES STAIN ACCEPTABILITY (test code=STN ACCEPTABLE) TOTAL CELLS COUNTED (test code=TCC) #CELLS SEGMENTED NEUTROPHILS (test code=SEG) % 39-69 LYMPHOCYTE (test code=LYMPH) % 25-55 MONOCYTE (test code=MON) % 0-10 EOSINOPHIL (test code=EOS) % 0.0-5.0 MORPHOLOGY COMMENT (test code=MOC) PLATELET ESTIMATE (test code=PLTEST) PLATELET MORPHOLOGY (test code=PLTMORPH) CBC W/MANUAL [id number] 04:32:00* Test Item Value Reference Range Comments WHITE BLOOD CELL (test code=WBC) 12.3 K/mm3 4.5-12.5 RED BLOOD CELL (test code=RBC) 3.25 mill/mm3 3.7-5.2 HEMOGLOBIN (test code=HGB) 9.2 gram/dL 11.5-15.5 HEMATOCRIT (test code=HCT) 29.0 % 36.0-46.0 MEAN CELL VOLUME (test code=MCV) 89.2 fL 80-98 MEAN CELL HGB (test code=MCH) 28.3 picogram 27.0-33.0 MEAN CELL HGB CONCETRATION (test code=MCHC) 31.7 gram/dL 33.0-36.0 RED CELL DISTRIBUTION WIDTH (test code=RDW) 15.1 % 11.6-16.2 RED CELL DISTRIBUTION WIDTH SD (test code=RDW-SD) 49.5 fL 37.0-51.0 PLATELET COUNT (test code=PLT) 182 K/mm3 150-450 MEAN PLATELET VOLUME (test code=MPV) 10.1 fL 6.7-11.0 IMMATURE GRANULOCYTE % (test code=IG%) 1.6 % 0.0-5.0 NUCLEATED RBC % (test code=NRBC%) 0.0 % 0-0 NEUTROPHIL # (test code=NT#) 4.91 K/mm3 1.8-7.7 IMMATURE GRANULOCYTE # (test code=IG#) 0.20 x10 3/uL 0-0.03 LYMPHOCYTE # (test code=LY#) 6.62 K/mm3 1.0-5.0 MONOCYTE # (test code=MO#) 0.48 K/mm3 0-0.8 EOSINOPHIL # (test code=EO#) 0.04 K/mm3 0.0-0.5 BASOPHIL # (test code=BA#) 0.04 K/mm3 0.0-0.2 NUCLEATED RBC # (test code=NRBC#) 0.00 K/mm3 0.0-0.1 MANUAL DIFF REQUIRED (test code=MDIFF) YES STAIN ACCEPTABILITY (test code=STN ACCEPTABLE) TOTAL CELLS COUNTED (test code=TCC) #CELLS SEGMENTED NEUTROPHILS (test code=SEG) % 39-69 LYMPHOCYTE (test code=LYMPH) % 25-55 MONOCYTE (test code=MON) % 0-10 MORPHOLOGY COMMENT (test code=MOC) PLATELET ESTIMATE (test code=PLTEST) PLATELET MORPHOLOGY (test code=PLTMORPH) CBC W/MANUAL [id number] 04:32:00* Test Item Value Reference Range Comments WHITE BLOOD CELL (test code=WBC) 12.3 K/mm3 4.5-12.5 RED BLOOD CELL (test code=RBC) 3.25 mill/mm3 3.7-5.2 HEMOGLOBIN (test code=HGB) 9.2 gram/dL 11.5-15.5 HEMATOCRIT (test code=HCT) 29.0 % 36.0-46.0 MEAN CELL VOLUME (test code=MCV) 89.2 fL 80-98 MEAN CELL HGB (test code=MCH) 28.3 picogram 27.0-33.0 MEAN CELL HGB CONCETRATION (test code=MCHC) 31.7 gram/dL 33.0-36.0 RED CELL DISTRIBUTION WIDTH (test code=RDW) 15.1 % 11.6-16.2 RED CELL DISTRIBUTION WIDTH SD (test code=RDW-SD) 49.5 fL 37.0-51.0 PLATELET COUNT (test code=PLT) 182 K/mm3 150-450 MEAN PLATELET VOLUME (test code=MPV) 10.1 fL 6.7-11.0 IMMATURE GRANULOCYTE % (test code=IG%) 1.6 % 0.0-5.0 NUCLEATED RBC % (test code=NRBC%) 0.0 % 0-0 NEUTROPHIL # (test code=NT#) 4.91 K/mm3 1.8-7.7 IMMATURE GRANULOCYTE # (test code=IG#) 0.20 x10 3/uL 0-0.03 LYMPHOCYTE # (test code=LY#) 6.62 K/mm3 1.0-5.0 MONOCYTE # (test code=MO#) 0.48 K/mm3 0-0.8 EOSINOPHIL # (test code=EO#) 0.04 K/mm3 0.0-0.5 BASOPHIL # (test code=BA#) 0.04 K/mm3 0.0-0.2 NUCLEATED RBC # (test code=NRBC#) 0.00 K/mm3 0.0-0.1 MANUAL DIFF REQUIRED (test code=MDIFF) YES STAIN ACCEPTABILITY (test code=STN ACCEPTABLE) TOTAL CELLS COUNTED (test code=TCC) #CELLS SEGMENTED NEUTROPHILS (test code=SEG) % 39-69 LYMPHOCYTE (test code=LYMPH) % 25-55 MONOCYTE (test code=MON) % 0-10 EOSINOPHIL (test code=EOS) % 0.0-5.0 CABOT RINGS (test code=CAB) MORPHOLOGY COMMENT (test code=MOC) PLATELET ESTIMATE (test code=PLTEST) PLATELET MORPHOLOGY (test code=PLTMORPH) [id number] 20:37:00* Test Item Value Reference Range Comments GLUBED (test code=GLUBED) 158 mg/dL 74-106 [facility] - CT CHEST W/O [id number] 18:47:00 Name: JACINTO NEVAREZ [facility] : 1950 Age/S: 68 / F [address] Unit #: [id number] Loc: [place] [address] Phys: Harmony Ring MD Acct: [id number] Dis Date: Status: ADM IN PHONE #: [phone] Exam Date: 11/29/2018 1820 FAX #: [phone] Reason: COUGH EXAMS: CPT CODE: [id number] CT CHEST W/O CONTRAST [id number] REASON FOR EXAM: COUGH EXAM ORDER DATE: 11/29/2018 2:44 PM Ordering Vasyl.: Harmony Ring MD PROCEDURE: - CT CHEST W/O CONTRAST FINDINGS: CT images of the chest were obtained without IV contrast. Reconstructed sagittal and coronal images of the chest were provided for interpretation. Dose reduction techniques were applied. The heart size is minimally enlarged. No evidence of pericardial effusion. Pulmonary vasculatures are minimally congested The thoracic aorta is unremarkable. Multiple suspicious (pathological) nodes in the axillary areas bilaterally. The largest node measures approximately 2 cm. Additional left supraclavicular node also seen (2.5 cm). Multiple nodes also present within the right paratracheal space and AP windows The lungs are clear. No evidence of pl eural effusion IMPRESSION:Multiple (2-2.5 cm) probably pathologi francois nodes in bilateral axillary, AP window, right trachea space, and lef t supraclavicular region. Recommend correlation with percutaneous biopsy. The left supraclavicular node should be accessible by ultrasou nd. at 1847 Reported and signed by: Randolph Muniz M.D. CC: Madison Ring MD; Rocael Clayton M.D. Technologist:Pushpa Beard RT (R) CTDI: DLP: Trnscb Date/Time: 11/29/2018 (184) tLEOBARDO AngelesVTL Orig Print D/T: S: 11/29/2018 (026) CTDI: DLP: PAGE 1 Signed Report [id number] 15:49:00* Test Item Value Reference Range Comments GLUBED (test code=GLUBED) 128 mg/dL 74-106 Performed by certified soyfreeze operator at [facility] [id number] 12:50:00* Test Item Value Reference Range Comments GLUBED (test code=GLUBED) 112 mg/dL 74-106 Performed by certified soyfreeze operator at [facility] [id number] 09:08:00* Test Item Value Reference Range Comments GLUBED (test code=GLUBED) 167 mg/dL 74-106 Performed by certified soyfreeze operator at [facility] PROCALCITONIN (PCT)2018-11-29 06:48:00* Test Item Value Reference Range Comments PROCALCITONIN (PCT) (test code=PROCAL) 0.06 ng/ml Concentration Interpretation (ng/mL) <0.51 Sepsis is not likely. Local bacterial infection is possible. (LOW RISK for progression to Sepsis) 0.51 - 2.00 Sepsis is possible, but other conditions are known to elevate PCT as well. (MODERATE RISK for progression to Sepsis) > 2.00 Sepsis is likely, unless other causes are known. (HIGH RISK for progression to Severe Sepsis or Septic Shock) 10.00 High likelihood of Severe Sepsis or Septic or higher Shock. *Increased PCT levels may not always be related to systemic bacterial infection.*Low PCT levels do not automatically exclude the presence of bacterial infection.*All results should be interpreted taking into account the patients history. BASIC METABOLIC [id number] 06:40:00* Test Item Value Reference Range Comments SODIUM (test code=NA) 147 mmol/L 136-145 POTASSIUM (test code=K) 5.5 mmol/L 3.5-5.1 CHLORIDE (test code=CL) 121.0 mmol/L 98-107 CARBON DIOXIDE (test code=CO2) 18.0 mmol/L 21-32 ANION GAP (test code=GAP) 13.5 10-20 GLUCOSE (test code=GLU) 154 mg/dL 74-106 BLOOD UREA NITROGEN (test code=BUN) 42 mg/dL 7-18 GLOMERULAR FILTRATION RATE (test code=GFR) 38 mL/min >=60 Estimated GFR by using Modified MDRD formula.Chronic kidney disease is defined as either kidney damageor GFR <60 mL/min/1.73 m2 for >3 months. CREATININE (test code=CREAT) 1.40 mg/dL 0.55-1.02 Note change in reference range due to change in reagent. BUN/CREATININE RATIO (test code=BUN/CREA) 29.8 10-20 CALCIUM (test code=CA) 8.1 mg/dL 8.5-10.1 CBC W/MANUAL [id number] 06:40:00* Test Item Value Reference Range Comments WHITE BLOOD CELL (test code=WBC) 10.6 K/mm3 4.5-12.5 RED BLOOD CELL (test code=RBC) 3.17 mill/mm3 3.7-5.2 HEMOGLOBIN (test code=HGB) 8.8 gram/dL 11.5-15.5 HEMATOCRIT (test code=HCT) 29.6 % 36.0-46.0 MEAN CELL VOLUME (test code=MCV) 93.4 fL 80-98 MEAN CELL HGB (test code=MCH) 27.8 picogram 27.0-33.0 MEAN CELL HGB CONCETRATION (test code=MCHC) 29.7 gram/dL 33.0-36.0 RED CELL DISTRIBUTION WIDTH (test code=RDW) 15.5 % 11.6-16.2 RED CELL DISTRIBUTION WIDTH SD (test code=RDW-SD) 52.7 fL 37.0-51.0 PLATELET COUNT (test code=PLT) 183 K/mm3 150-450 MEAN PLATELET VOLUME (test code=MPV) 10.7 fL 6.7-11.0 IMMATURE GRANULOCYTE % (test code=IG%) 1.0 % 0.0-5.0 NUCLEATED RBC % (test code=NRBC%) 0.0 % 0-0 NEUTROPHIL # (test code=NT#) 3.57 K/mm3 1.8-7.7 IMMATURE GRANULOCYTE # (test code=IG#) 0.11 x10 3/uL 0-0.03 LYMPHOCYTE # (test code=LY#) 5.80 K/mm3 1.0-5.0 MONOCYTE # (test code=MO#) 0.74 K/mm3 0-0.8 EOSINOPHIL # (test code=EO#) 0.38 K/mm3 0.0-0.5 BASOPHIL # (test code=BA#) 0.03 K/mm3 0.0-0.2 NUCLEATED RBC # (test code=NRBC#) 0.00 K/mm3 0.0-0.1 MANUAL DIFF REQUIRED (test code=MDIFF) YES STAIN ACCEPTABILITY (test code=STN ACCEPTABLE) STAIN ACCEPTABLE TOTAL CELLS COUNTED (test code=TCC) 115 #CELLS SEGMENTED NEUTROPHILS (test code=SEG) 42.6 % 39-69 BAND NEUTROPHIL (test code=BAND) 0 % 0-10 LYMPHOCYTE (test code=LYMPH) 38.3 % 25-55 REACTIVE LYMPH (test code=RELYMPH) 3.5 % MONOCYTE (test code=MON) 6.1 % 0-10 EOSINOPHIL (test code=EOS) 6.9 % 0.0-5.0 BASOPHIL (test code=BASO) 1.7 % 0-1.0 METAMYELOCYTE (test code=META) 0 % 0-0 MYELOCYTE (test code=MYELO) 0.9 % 0.0-0.0 PROMYELOCYTE (test code=PROM) 0 % 0-0 ROULEAUX (test code=ROU) SLIGHT PLATELET ESTIMATE (test code=PLTEST) ADEQUATE PLATELET MORPHOLOGY (test code=PLTMORPH) NORMAL IMMATURE FORMS (test code=IMMAT) 0 % BASIC METABOLIC [id number] 06:35:00* Test Item Value Reference Range Comments SODIUM (test code=NA) 147 mmol/L 136-145 POTASSIUM (test code=K) 5.5 mmol/L 3.5-5.1 CHLORIDE (test code=CL) 121.0 mmol/L 98-107 CARBON DIOXIDE (test code=CO2) mmol/L 21-32 ANION GAP (test code=GAP) 10-20 GLUCOSE (test code=GLU) mg/dL 74-106 BLOOD UREA NITROGEN (test code=BUN) mg/dL 7-18 GLOMERULAR FILTRATION RATE (test code=GFR) mL/min >=60 CREATININE (test code=CREAT) mg/dL 0.55-1.02 BUN/CREATININE RATIO (test code=BUN/CREA) 10-20 CALCIUM (test code=CA) mg/dL 8.5-10.1 B-TYPE NATRIURETIC [id number] 06:16:00* Test Item Value Reference Range Comments B-TYPE NATRIURETIC PEPTIDE (test code=BNP) 169.15 pgram/mL 0-100 CBC W/MANUAL [id number] 05:54:00* Test Item Value Reference Range Comments WHITE BLOOD CELL (test code=WBC) 10.6 K/mm3 4.5-12.5 RED BLOOD CELL (test code=RBC) 3.17 mill/mm3 3.7-5.2 HEMOGLOBIN (test code=HGB) 8.8 gram/dL 11.5-15.5 HEMATOCRIT (test code=HCT) 29.6 % 36.0-46.0 MEAN CELL VOLUME (test code=MCV) 93.4 fL 80-98 MEAN CELL HGB (test code=MCH) 27.8 picogram 27.0-33.0 MEAN CELL HGB CONCETRATION (test code=MCHC) 29.7 gram/dL 33.0-36.0 RED CELL DISTRIBUTION WIDTH (test code=RDW) 15.5 % 11.6-16.2 RED CELL DISTRIBUTION WIDTH SD (test code=RDW-SD) 52.7 fL 37.0-51.0 PLATELET COUNT (test code=PLT) 183 K/mm3 150-450 MEAN PLATELET VOLUME (test code=MPV) 10.7 fL 6.7-11.0 IMMATURE GRANULOCYTE % (test code=IG%) 1.0 % 0.0-5.0 NUCLEATED RBC % (test code=NRBC%) 0.0 % 0-0 NEUTROPHIL # (test code=NT#) 3.57 K/mm3 1.8-7.7 IMMATURE GRANULOCYTE # (test code=IG#) 0.11 x10 3/uL 0-0.03 LYMPHOCYTE # (test code=LY#) 5.80 K/mm3 1.0-5.0 MONOCYTE # (test code=MO#) 0.74 K/mm3 0-0.8 EOSINOPHIL # (test code=EO#) 0.38 K/mm3 0.0-0.5 BASOPHIL # (test code=BA#) 0.03 K/mm3 0.0-0.2 NUCLEATED RBC # (test code=NRBC#) 0.00 K/mm3 0.0-0.1 MANUAL DIFF REQUIRED (test code=MDIFF) YES STAIN ACCEPTABILITY (test code=STN ACCEPTABLE) TOTAL CELLS COUNTED (test code=TCC) #CELLS SEGMENTED NEUTROPHILS (test code=SEG) % 39-69 LYMPHOCYTE (test code=LYMPH) % 25-55 MONOCYTE (test code=MON) % 0-10 EOSINOPHIL (test code=EOS) % 0.0-5.0 CABOT RINGS (test code=CAB) MORPHOLOGY COMMENT (test code=MOC) PLATELET ESTIMATE (test code=PLTEST) PLATELET MORPHOLOGY (test code=PLTMORPH) CBC W/MANUAL [id number] 05:54:00* Test Item Value Reference Range Comments WHITE BLOOD CELL (test code=WBC) 10.6 K/mm3 4.5-12.5 RED BLOOD CELL (test code=RBC) 3.17 mill/mm3 3.7-5.2 HEMOGLOBIN (test code=HGB) 8.8 gram/dL 11.5-15.5 HEMATOCRIT (test code=HCT) 29.6 % 36.0-46.0 MEAN CELL VOLUME (test code=MCV) 93.4 fL 80-98 MEAN CELL HGB (test code=MCH) 27.8 picogram 27.0-33.0 MEAN CELL HGB CONCETRATION (test code=MCHC) 29.7 gram/dL 33.0-36.0 RED CELL DISTRIBUTION WIDTH (test code=RDW) 15.5 % 11.6-16.2 RED CELL DISTRIBUTION WIDTH SD (test code=RDW-SD) 52.7 fL 37.0-51.0 PLATELET COUNT (test code=PLT) 183 K/mm3 150-450 MEAN PLATELET VOLUME (test code=MPV) 10.7 fL 6.7-11.0 IMMATURE GRANULOCYTE % (test code=IG%) 1.0 % 0.0-5.0 NUCLEATED RBC % (test code=NRBC%) 0.0 % 0-0 NEUTROPHIL # (test code=NT#) 3.57 K/mm3 1.8-7.7 IMMATURE GRANULOCYTE # (test code=IG#) 0.11 x10 3/uL 0-0.03 LYMPHOCYTE # (test code=LY#) 5.80 K/mm3 1.0-5.0 MONOCYTE # (test code=MO#) 0.74 K/mm3 0-0.8 EOSINOPHIL # (test code=EO#) 0.38 K/mm3 0.0-0.5 BASOPHIL # (test code=BA#) 0.03 K/mm3 0.0-0.2 NUCLEATED RBC # (test code=NRBC#) 0.00 K/mm3 0.0-0.1 MANUAL DIFF REQUIRED (test code=MDIFF) YES STAIN ACCEPTABILITY (test code=STN ACCEPTABLE) TOTAL CELLS COUNTED (test code=TCC) #CELLS SEGMENTED NEUTROPHILS (test code=SEG) % 39-69 LYMPHOCYTE (test code=LYMPH) % 25-55 MONOCYTE (test code=MON) % 0-10 EOSINOPHIL (test code=EOS) % 0.0-5.0 CABOT RINGS (test code=CAB) MORPHOLOGY COMMENT (test code=MOC) PLATELET ESTIMATE (test code=PLTEST) PLATELET MORPHOLOGY (test code=PLTMORPH) CBC W/MANUAL [id number] 05:54:00* Test Item Value Reference Range Comments WHITE BLOOD CELL (test code=WBC) 10.6 K/mm3 4.5-12.5 RED BLOOD CELL (test code=RBC) 3.17 mill/mm3 3.7-5.2 HEMOGLOBIN (test code=HGB) 8.8 gram/dL 11.5-15.5 HEMATOCRIT (test code=HCT) 29.6 % 36.0-46.0 MEAN CELL VOLUME (test code=MCV) 93.4 fL 80-98 MEAN CELL HGB (test code=MCH) 27.8 picogram 27.0-33.0 MEAN CELL HGB CONCETRATION (test code=MCHC) 29.7 gram/dL 33.0-36.0 RED CELL DISTRIBUTION WIDTH (test code=RDW) 15.5 % 11.6-16.2 RED CELL DISTRIBUTION WIDTH SD (test code=RDW-SD) 52.7 fL 37.0-51.0 PLATELET COUNT (test code=PLT) 183 K/mm3 150-450 MEAN PLATELET VOLUME (test code=MPV) 10.7 fL 6.7-11.0 IMMATURE GRANULOCYTE % (test code=IG%) 1.0 % 0.0-5.0 NUCLEATED RBC % (test code=NRBC%) 0.0 % 0-0 NEUTROPHIL # (test code=NT#) 3.57 K/mm3 1.8-7.7 IMMATURE GRANULOCYTE # (test code=IG#) 0.11 x10 3/uL 0-0.03 LYMPHOCYTE # (test code=LY#) 5.80 K/mm3 1.0-5.0 MONOCYTE # (test code=MO#) 0.74 K/mm3 0-0.8 EOSINOPHIL # (test code=EO#) 0.38 K/mm3 0.0-0.5 BASOPHIL # (test code=BA#) 0.03 K/mm3 0.0-0.2 NUCLEATED RBC # (test code=NRBC#) 0.00 K/mm3 0.0-0.1 MANUAL DIFF REQUIRED (test code=MDIFF) YES STAIN ACCEPTABILITY (test code=STN ACCEPTABLE) TOTAL CELLS COUNTED (test code=TCC) #CELLS SEGMENTED NEUTROPHILS (test code=SEG) % 39-69 LYMPHOCYTE (test code=LYMPH) % 25-55 MONOCYTE (test code=MON) % 0-10 EOSINOPHIL (test code=EOS) % 0.0-5.0 MORPHOLOGY COMMENT (test code=MOC) PLATELET ESTIMATE (test code=PLTEST) PLATELET MORPHOLOGY (test code=PLTMORPH) CBC W/MANUAL [id number] 05:54:00* Test Item Value Reference Range Comments WHITE BLOOD CELL (test code=WBC) 10.6 K/mm3 4.5-12.5 RED BLOOD CELL (test code=RBC) 3.17 mill/mm3 3.7-5.2 HEMOGLOBIN (test code=HGB) 8.8 gram/dL 11.5-15.5 HEMATOCRIT (test code=HCT) 29.6 % 36.0-46.0 MEAN CELL VOLUME (test code=MCV) 93.4 fL 80-98 MEAN CELL HGB (test code=MCH) 27.8 picogram 27.0-33.0 MEAN CELL HGB CONCETRATION (test code=MCHC) 29.7 gram/dL 33.0-36.0 RED CELL DISTRIBUTION WIDTH (test code=RDW) 15.5 % 11.6-16.2 RED CELL DISTRIBUTION WIDTH SD (test code=RDW-SD) 52.7 fL 37.0-51.0 PLATELET COUNT (test code=PLT) 183 K/mm3 150-450 MEAN PLATELET VOLUME (test code=MPV) 10.7 fL 6.7-11.0 IMMATURE GRANULOCYTE % (test code=IG%) 1.0 % 0.0-5.0 NUCLEATED RBC % (test code=NRBC%) 0.0 % 0-0 NEUTROPHIL # (test code=NT#) 3.57 K/mm3 1.8-7.7 IMMATURE GRANULOCYTE # (test code=IG#) 0.11 x10 3/uL 0-0.03 LYMPHOCYTE # (test code=LY#) 5.80 K/mm3 1.0-5.0 MONOCYTE # (test code=MO#) 0.74 K/mm3 0-0.8 EOSINOPHIL # (test code=EO#) 0.38 K/mm3 0.0-0.5 BASOPHIL # (test code=BA#) 0.03 K/mm3 0.0-0.2 NUCLEATED RBC # (test code=NRBC#) 0.00 K/mm3 0.0-0.1 MANUAL DIFF REQUIRED (test code=MDIFF) YES STAIN ACCEPTABILITY (test code=STN ACCEPTABLE) TOTAL CELLS COUNTED (test code=TCC) #CELLS SEGMENTED NEUTROPHILS (test code=SEG) % 39-69 LYMPHOCYTE (test code=LYMPH) % 25-55 MONOCYTE (test code=MON) % 0-10 MORPHOLOGY COMMENT (test code=MOC) PLATELET ESTIMATE (test code=PLTEST) PLATELET MORPHOLOGY (test code=PLTMORPH) CBC W/MANUAL [id number] 05:54:00* Test Item Value Reference Range Comments WHITE BLOOD CELL (test code=WBC) 10.6 K/mm3 4.5-12.5 RED BLOOD CELL (test code=RBC) 3.17 mill/mm3 3.7-5.2 HEMOGLOBIN (test code=HGB) 8.8 gram/dL 11.5-15.5 HEMATOCRIT (test code=HCT) 29.6 % 36.0-46.0 MEAN CELL VOLUME (test code=MCV) 93.4 fL 80-98 MEAN CELL HGB (test code=MCH) 27.8 picogram 27.0-33.0 MEAN CELL HGB CONCETRATION (test code=MCHC) 29.7 gram/dL 33.0-36.0 RED CELL DISTRIBUTION WIDTH (test code=RDW) 15.5 % 11.6-16.2 RED CELL DISTRIBUTION WIDTH SD (test code=RDW-SD) 52.7 fL 37.0-51.0 PLATELET COUNT (test code=PLT) 183 K/mm3 150-450 MEAN PLATELET VOLUME (test code=MPV) 10.7 fL 6.7-11.0 IMMATURE GRANULOCYTE % (test code=IG%) 1.0 % 0.0-5.0 NUCLEATED RBC % (test code=NRBC%) 0.0 % 0-0 NEUTROPHIL # (test code=NT#) 3.57 K/mm3 1.8-7.7 IMMATURE GRANULOCYTE # (test code=IG#) 0.11 x10 3/uL 0-0.03 LYMPHOCYTE # (test code=LY#) 5.80 K/mm3 1.0-5.0 MONOCYTE # (test code=MO#) 0.74 K/mm3 0-0.8 EOSINOPHIL # (test code=EO#) 0.38 K/mm3 0.0-0.5 BASOPHIL # (test code=BA#) 0.03 K/mm3 0.0-0.2 NUCLEATED RBC # (test code=NRBC#) 0.00 K/mm3 0.0-0.1 MANUAL DIFF REQUIRED (test code=MDIFF) YES STAIN ACCEPTABILITY (test code=STN ACCEPTABLE) TOTAL CELLS COUNTED (test code=TCC) #CELLS SEGMENTED NEUTROPHILS (test code=SEG) % 39-69 LYMPHOCYTE (test code=LYMPH) % 25-55 MONOCYTE (test code=MON) % 0-10 EOSINOPHIL (test code=EOS) % 0.0-5.0 CABOT RINGS (test code=CAB) MORPHOLOGY COMMENT (test code=MOC) PLATELET ESTIMATE (test code=PLTEST) PLATELET MORPHOLOGY (test code=PLTMORPH) [id number] 21:02:00* Test Item Value Reference Range Comments GLUBED (test code=GLUBED) 125 mg/dL 74-106 Performed by certified soyfreeze operator at [facility] - US RETRO [id number] 19:23:00 Name: JACINTO NEVAREZ [facility] : 1950 Age/S: 68 / F [address] [facility] Unit #: [id number] Loc: [place] [address] Phys: Harmony Ring MD Acct: [id number] Dis Date: Status: ADM IN PHONE #: [phone] Exam Date: 11/28/2018 1830 FAX #: [phone] Reason: renal insuff EXAMS: CPT CODE: [id number] US RETRO LTD 11158 REASON FOR EXAM: renal insuff EXAM ORDER DATE: 11/28/2018 12:16 PM Attending M.D.: Harmony Ring MD PROCEDURE: - US RETRO LTD FINDINGS: The right kidney measures 9.3 x 4.6 cm. The cross-sectional thickness of the right renal cortex measured 1.1 cm. The left kidney measures 9.5 x 4.2 cm. The cross- sectional thickness of the left renal cortex measured 1 cm. There is no evidence of hydronephrosis. There is no evidence of nephrolithiasis. There is no evidence of renal mass. The urinary bladder is contracted IMPRESSION: Unremarkable kidneys. at 1923 Reported and signed by: Randolph Muniz M.D. CC: Harmony Ring MD; Rocael Clayton M.D. Technologist: Mili Peterson RDMS Trnscb Date/Time: 11/28/2018 (1922) [email or web address] Orig Print D/T: S: 11/28/2018 (1925) Probe: PAGE 1 Signed Report [id number] 16:47:00* Test Item Value Reference Range Comments GLUBED (test code=GLUBED) 113 mg/dL 74-106 Performed by certified soyfreeze operator at [facility] BASIC METABOLIC [id number] 11:50:00* Test Item Value Reference Range Comments SODIUM (test code=NA) 146 mmol/L 136-145 POTASSIUM (test code=K) 5.9 mmol/L 3.5-5.1 Results called to [id number] by [email or web address] 11/28/18 1147Critical results verified and read back by Nurse? Y CHLORIDE (test code=CL) 121.0 mmol/L 98-107 CARBON DIOXIDE (test code=CO2) 16.0 mmol/L 21-32 ANION GAP (test code=GAP) 14.9 10-20 GLUCOSE (test code=GLU) 78 mg/dL 74-106 BLOOD UREA NITROGEN (test code=BUN) 46 mg/dL 7-18 GLOMERULAR FILTRATION RATE (test code=GFR) 38 mL/min >=60 Estimated GFR by using Modified MDRD formula.Chronic kidney disease is defined as either kidney damageor GFR <60 mL/min/1.73 m2 for >3 months. CREATININE (test code=CREAT) 1.40 mg/dL 0.55-1.02 Note change in reference range due to change in reagent. BUN/CREATININE RATIO (test code=BUN/CREA) 31.9 10-20 CALCIUM (test code=CA) 8.9 mg/dL 8.5-10.1 - XR CHEST 1 [id number] 11:30:00 FAX: Harmony James MD [place]: B St: ADM FAX: Rocael Rodas III [phone] Name: JACINTO NEVAREZ [facility] : 1950 Age/S: 68/F [address] [facility] Unit #: [id number] Loc: [place] [address] Phys: Harmony Ring MD Acct: [id number] Dis Date: Status: ADM IN PHONE #: [phone] Exam Date: 11/28/20181123 FAX #: [phone] Reason: cough EXAMS: CPT CODE: [id number] XR CHEST 1 V 20090 HISTORY: Cough. COMPARISON: Previous day. No acute infiltrates, effusion or congestion is noted. Calcified granuloma in the left upper lobe. Suboptimal inspiration Cardiomegaly. IMPRESSION: No acute infiltrates, effusion or congestion. at 1130 Reported and signed by: Garret Ahuja M.D. CC: Harmony Ring MD; Rocael Clayton M.D. Technologist: JERE POSADAS (R) Trnscrd Date/Time/By: 11/28/2018 (4100) : By: [email or web address] Orig Print D/T: S: 11/28/2018 (0200) PAGE 1 Signed Report CBC W/AUTO [id number] 11:24:00* Test Item Value Reference Range Comments WHITE BLOOD CELL (test code=WBC) 7.4 K/mm3 4.5-12.5 RED BLOOD CELL (test code=RBC) 3.07 mill/mm3 3.7-5.2 HEMOGLOBIN (test code=HGB) 8.6 gram/dL 11.5-15.5 HEMATOCRIT (test code=HCT) 28.4 % 36.0-46.0 MEAN CELL VOLUME (test code=MCV) 92.5 fL 80-98 MEAN CELL HGB (test code=MCH) 28.0 picogram 27.0-33.0 MEAN CELL HGB CONCETRATION (test code=MCHC) 30.3 gram/dL 33.0-36.0 RED CELL DISTRIBUTION WIDTH (test code=RDW) 15.3 % 11.6-16.2 RED CELL DISTRIBUTION WIDTH SD (test code=RDW-SD) 51.2 fL 37.0-51.0 PLATELET COUNT (test code=PLT) 164 K/mm3 150-450 MEAN PLATELET VOLUME (test code=MPV) 10.1 fL 6.7-11.0 NEUTROPHIL % (test code=NT%) 48.6 % 39.0-69.0 IMMATURE GRANULOCYTE % (test code=IG%) 1.2 % 0.0-5.0 LYMPHOCYTE % (test code=LY%) 38.9 % 25.0-55.0 MONOCYTE % (test code=MO%) 7.3 % 0.0-10.0 EOSINOPHIL % (test code=EO%) 3.5 % 0.0-5.0 BASOPHIL % (test code=BA%) 0.5 % 0.0-1.0 NUCLEATED RBC % (test code=NRBC%) 0.0 % 0-0 NEUTROPHIL # (test code=NT#) 3.56 K/mm3 1.8-7.7 IMMATURE GRANULOCYTE # (test code=IG#) 0.09 x10 3/uL 0-0.03 LYMPHOCYTE # (test code=LY#) 2.86 K/mm3 1.0-5.0 MONOCYTE # (test code=MO#) 0.54 K/mm3 0-0.8 EOSINOPHIL # (test code=EO#) 0.26 K/mm3 0.0-0.5 BASOPHIL # (test code=BA#) 0.04 K/mm3 0.0-0.2 NUCLEATED RBC # (test code=NRBC#) 0.00 K/mm3 0.0-0.1 MANUAL DIFF REQUIRED (test code=MDIFF) NO [id number] 11:08:00* Test Item Value Reference Range Comments GLUBED (test code=GLUBED) 87 mg/dL 74-106 Performed by certified soyfreeze operator at [facility] URINALYSIS [id number] 07:36:00* Test Item Value Reference Range Comments UA COLOR (test code=COLU) TEST NOT PERFORMED YELLOW Previously reported result: YELLOW Edited by: TOM on 11/28/18:21627911/28/18 0735: COLOR previously reported as: YELLOW Urine Source? Clean CatchURINALYSIS [id number] 01:22:00* Test Item Value Reference Range Comments UA COLOR (test code=COLU) YELLOW YELLOW UA APPEARANCE (test code=APPU) CLEAR CLEAR UA GLUCOSE DIPSTICK (test code=DGLUU) NEGATIVE mg/dL NEGATIVE UA BILIRUBIN DIPSTICK (test code=BILU) NEGATIVE mg/dL NEGATIVE UA KETONE DIPSTICK (test code=KETU) 5 (Trace) mg/dL NEGATIVE UA SPECIFIC GRAVITY (test code=SGU) 1.030 1.001-1.035 UA BLOOD DIPSTICK (test code=PATI) Negative NEGATIVE UA PH DIPSTICK (test code=MARIBETH) 5.0 5.0-8.0 UA PROTEIN DIPSTICK (test code=PROU) 30 (1+) mg/dL NEGATIVE UA UROBILINIOGEN DIPSTICK (test code=URO) 0.2 mg/dL 0.0-0.2 UA NITRITE DIPSTICK (test code=KB) NEGATIVE NEGATIVE UA LEUKOCYTE ESTERASE W REFLEX (test code=LEUUR) NEGATIVE NEGATIVE UA WBC (test code=WBCU) 0-5 #/HPF 0-5 UA RBC (test code=RBCU) 0-2 #/HPF 0-5 UA EPITHELIAL CELLS (test code=EPIU) MOD per HPF FEW UA MUCUS (test code=MUCU) MANY #/LPF FEW Urine Source? Clean [id number] 22:59:00* Test Item Value Reference Range Comments GLYCOSYLATED HEMOGLOBIN (HA1C) (test code=GLYHGB) 7.6 % HbA1 4.8-6.0 ESTIMATED AVERAGE GLUCOSE (test code=EAG) 171 MG/DL BASIC METABOLIC [id number] 22:48:00* Test Item Value Reference Range Comments SODIUM (test code=NA) 143 mmol/L 136-145 POTASSIUM (test code=K) 6.6 mmol/L 3.5-5.1 Results called to [id number] by [email or web address] 11/27/18 2246Critical results verified and read back by Nurse? Y CHLORIDE (test code=CL) 122.0 mmol/L 98-107 CARBON DIOXIDE (test code=CO2) 15.0 mmol/L 21-32 ANION GAP (test code=GAP) 12.6 10-20 GLUCOSE (test code=GLU) 74 mg/dL 74-106 BLOOD UREA NITROGEN (test code=BUN) 54 mg/dL 7-18 GLOMERULAR FILTRATION RATE (test code=GFR) 32 mL/min >=60 Estimated GFR by using Modified MDRD formula.Chronic kidney disease is defined as either kidney damageor GFR <60 mL/min/1.73 m2 for >3 months. CREATININE (test code=CREAT) 1.60 mg/dL 0.55-1.02 Note change in reference range due to change in reagent. BUN/CREATININE RATIO (test code=BUN/CREA) 32.9 10-20 CALCIUM (test code=CA) 8.0 mg/dL 8.5-10.1 HEPATIC FUNCTION [id number] 22:48:00* Test Item Value Reference Range Comments TOTAL PROTEIN (test code=PROT) 7.2 gram/dL 6.4-8.2 ALBUMIN (test code=ALB) 2.7 g/dL 3.4-5.0 GLOBULIN (test code=GLOB) 4.5 gram/dL 2.7-4.2 ALBUMIN/GLOBULIN RATIO (test code=A/G) 0.6 0.75-1.50 BILIRUBIN TOTAL (test code=BILT) 0.20 mg/dL 0.0-1.0 BILIRUBIN DIRECT (test code=BILD) 0.06 mg/dL 0.0-0.20 SGOT/AST (test code=AST) 15 IUnit/L 15-37 SGPT/ALT (test code=ALT) 12 IUnit/L 12-78 ALKALINE PHOSPHATASE TOTAL (test code=ALKP) 138 IUnit/L 45-117 Note change in reference range due to change in reagent. [id number] 22:48:00* Test Item Value Reference Range Comments LIPASE (test code=LIP) 160 U/L 73.0-393.0 [id number] 22:48:00* Test Item Value Reference Range Comments TROPONIN-I (test code=TROPI) <0.015 ng/mL 0-0.045 - XR CHEST 1 [id number] 22:46:00 [place]: B St: PRE Name: JACINTO OWENS [facility] : [birth year] Age/S: 68/F [address] [facility] Unit #: [id number] Loc: [place] [address] Phys: Valencia Dick MD Acct: [id number] Dis Date: Status: PRE ER PHONE #: [phone] Exam Date: 11/27/20182219 FAX #: [phone] Reason: CHEST PAIN EXAMS: CPT CODE: [id number] XR CHEST 1 V 55087 REASON FOR EXAM: CHEST PAIN EXAM ORDER DATE: 11/27/2018 10:02 PM Ordering M.D.: Valencia Dick MD PROCEDURE: - XR CHEST 1 V MÓNICA RISON: FINDINGS: Portable AP frontal view of the chest obtained a t 10:32 PM shows no evidence of effusion. The heart size is minimally enla rged. Pulmonary vasculatures are minimally congested. IMP RESSION: Congestive heart failure with pulmonary edema. Electronical ly Signed by Yoan Muniz on 11/27/2018 at 8159 Reported and signed by: Randolph Muniz M.D. CC: Technologist: KEAGAN CAI Trnscrd Date/Time/By: 11/27/2018 (1503) : By: Torres Orig Print D/T: S: 11/27/2018 (8021) PAGE 1 Signed Report CBC W/O [id number] 22:32:00* Test Item Value Reference Range Comments WHITE BLOOD CELL (test code=WBC) 9.1 K/mm3 4.5-12.5 RED BLOOD CELL (test code=RBC) 3.14 mill/mm3 3.7-5.2 HEMOGLOBIN (test code=HGB) 8.8 gram/dL 11.5-15.5 HEMATOCRIT (test code=HCT) 29.3 % 36.0-46.0 MEAN CELL VOLUME (test code=MCV) 93.3 fL 80-98 MEAN CELL HGB (test code=MCH) 28.0 picogram 27.0-33.0 MEAN CELL HGB CONCETRATION (test code=MCHC) 30.0 gram/dL 33.0-36.0 RED CELL DISTRIBUTION WIDTH (test code=RDW) 15.6 % 11.6-16.2 PLATELET COUNT (test code=PLT) 173 K/mm3 150-450 MEAN PLATELET VOLUME (test code=MPV) 10.2 fL 6.7-11.0 PROTHROMBIN [id number] 22:26:00* Test Item Value Reference Range Comments PROTHROMBIN TIME PATIENT (test code=PTP) 10.9 seconds 9.0-14.0 INTERNATIONAL NORMAL RATIO (test code=INR) 0.9 0.8-1.2 The therapeutic range for oral anticoagulant therapy formost indications is an international normalized ratio (INR)of between 2.0 and 3.0. The recommended therapeutic INRrange for various clinical situations is listed below: Clinical Situation INR range Pulmonary e mbolism treatment (2.0-3.0)Venous thrombosis treatmentVenous thrombosis prophylaxis (high risk surgery)Prevention of systemic embolism from: Acute myocardial infarction Valvular heart disease Atrial fibrillation Mechanical prosthetic heart valves (2.5-3.5) IS PATIENT ON ANTICOAGULANTS? NTHROMBOPLASTIN TIME [id number] 22:26:00* Test Item Value Reference Range Comments THROMBOPLASTIN TIME PARTIAL (test code=PTT) 27.7 seconds 25.0-36.5 IS PATIENT ON ANTICOAGULANTS? NBASIC METABOLIC [id number] 20:10:00* Test Item Value Reference Range Comments SODIUM (test code=NA) 141 mEq/L 134-147 POTASSIUM (test code=K) 7.1 mEq/L 3.4-5.0 CHLORIDE (test code=CL) 121 mEq/L 100-108 CARBON DIOXIDE (test code=CO2) 15 mEq/L 21-33 ANION GAP (test code=GAP) 12 0-20 GLUCOSE (test code=GLU) 134 mg/dL 70-110 BLOOD UREA NITROGEN (test code=BUN) 49 mg/dL 7-18 GLOMERULAR FILTRATION RATE (test code=GFR) 34.6 80-90 Units of measure=ml/min/1.73 m2 CREATININE (test code=CREAT) 1.5 mg/dL 0.6-1.3 CALCIUM (test code=CA) 8.3 mg/dL 8.0-10.5 Specimen received unspun, results may be affected. [employer] PHONE# for [employer] -[phone] or [phone] PHONE , FAX# [id number] 20:10:00* Test Item Value Reference Range Comments MAGNESIUM (test code=MAG) 2.10 mg/dL 1.8-2.4 Specimen received unspun, results may be affected. [employer] PHONE# for CRITICALS -[phone] or [phone] PHONE , FAX# CBC W/AUTO [id number] 19:32:00* Test Item Value Reference Range Comments WHITE BLOOD CELL (test code=WBC) 7.27 x10 3/uL 4.5-11.0 RED BLOOD CELL (test code=RBC) 3.24 x10 6/uL 3.54-5.02 HEMOGLOBIN (test code=HGB) 9.2 g/dL 11.0-15.0 HEMATOCRIT (test code=HCT) 31.4 % 33.0-45.0 MEAN CELL VOLUME (test code=MCV) 96.9 fL 81.0-99.0 MEAN CELL HGB (test code=MCH) 28.4 pg 27.0-33.0 MEAN CELL HGB CONCETRATION (test code=MCHC) 29.3 g/dL 33.0-37.0 RED CELL DISTRIBUTION WIDTH CV (test code=RDW) 15.3 % 11.5-14.5 RED CELL DISTRIBUTION WIDTH SD (test code=RDW-SD) 53.5 fL 37.0-54.0 PLATELET COUNT (test code=PLT) 201 x10 3/uL 150-400 MEAN PLATELET VOLUME (test code=MPV) 10.6 fL 7.0-9.0 NEUTROPHIL % (test code=NT%) 43.1 % 56.0-77.0 IMMATURE GRANULOCYTE % (test code=IG%) 1.0 % 0.0-2.0 LYMPHOCYTE % (test code=LY%) 44.7 % 14.0-32.0 MONOCYTE % (test code=MO%) 6.5 % 4.8-9.0 EOSINOPHIL % (test code=EO%) 4.1 % 0.3-3.7 BASOPHIL % (test code=BA%) 0.6 % 0.0-2.0 NUCLEATED RBC % (test code=NRBC%) 0.3 % 0-0 NEUTROPHIL # (test code=NT#) 3.14 x10 3/uL 2.0-7.6 IMMATURE GRANULOCYTE # (test code=IG#) 0.07 x10 3/uL 0.00-0.03 LYMPHOCYTE # (test code=LY#) 3.25 x10 3/uL 1.0-3.8 MONOCYTE # (test code=MO#) 0.47 x10 3/uL 0.1-0.8 EOSINOPHIL # (test code=EO#) 0.30 x10 3/uL 0.0-0.2 BASOPHIL # (test code=BA#) 0.04 x10 3/uL 0.0-0.2 NUCLEATED RBC # (test code=NRBC#) 0.02 x10 3/uL 0.0-0.1 MANUAL DIFF REQUIRED (test code=MDIFF) NO [facility] PHONE# for DCPGTUSWB-[phone] or [phone] PHONE , FAX#
[2018-12-24] MEDS ORDERED: AMPICILLIN SOD/SULBACTAM 1.5GM 50 ML IV SCH (05:15)
[2018-12-24] MEDS ORDERED: AMPICILLIN SOD/SULBACTAM 3GM 100 ML ONE (05:34)
[2018-12-24 05:35] LABS: BASOPHILS # (AUTO) 0.1 (0.0-0.1); BASOPHILS % 0.6 % (0.0-1.0); EOSINOPHILS # (AUTO) 0.3 (0.0-0.4); EOSINOPHILS % 2.7 % (0.0-6.0); HEMATOCRIT 25.3 % (34.2-44.1); HEMOGLOBIN 7.9 g/dL (12.0-16.0); LYMPHOCYTES % 56.4 % (18.0-39.1); MEAN CORPUSCULAR HEMOGLOBIN 29.9 pg (28-32); MEAN CORPUSCULAR HGB CONC 31.2 g/dL (31-35); MEAN CORPUSCULAR VOLUME 95.8 fL (81-99); MONOCYTES # (AUTO) 0.5 (0.2-0.8); MONOCYTES % 4.7 % (4.4-11.3); NEUTROPHILS # (AUTO) 3.7 (2.1-6.9); NEUTROPHILS % 34.8 % (38.7-80.0); PLATELET COUNT 146 x10e3/uL (140-360); RED BLOOD COUNT 2.64 x10e6/uL (3.6-5.1); RED CELL DISTRIBUTION WIDTH 15.4 % (11.7-14.4)
[2018-12-24] MEDS ORDERED: AMPICILLIN SOD/SULBACTAM 3GM 100 ML IV SCH (05:45)
[2018-12-24 06:05] LABS: ALBUMIN 2.4 g/dL (3.5-5.0); ALBUMIN/GLOBULIN RATIO 0.8 (0.8-2.0); ANION GAP 9.2 mmol/L (8-16); CALCIUM 8.3 mg/dL (8.4-10.2); CLARITY,URINE CLEAR (CLEAR); COLOR,URINE YELLOW (YELLOW); CREATININE, SERUM 0.97 mg/dL (0.57-1.11); POTASSIUM 4.2 mmol/L (3.5-5.1)
[2018-12-24 06:06] LABS: BILIRUBIN,URINE NEGATIVE (NEGATIVE); KETONES,URINE NEGATIVE (NEGATIVE); LEUKOCYTE ESTERASE ,URINE NEGATIVE (NEGATIVE); NITRITE,URINE NEGATIVE (NEGATIVE); PROTEIN,URINE DIPSTICK 3+ (NEGATIVE); URINE UROBILINOGEN 0.2 mg/dL (0.2 - 1); WBC,URINE (MAN) 0-5 /HPF (0-5)
[2018-12-24 06:11] LABS: AMORPHOUS SEDIMENT,URINE FEW (FEW)
--- NOTE | 2018-12-24 06:15 | Diagnostic Imaging Report ---
EXAMINATION: CHEST SINGLE (PORTABLE) INDICATION: cough COMPARISON: None FINDINGS: AP view TUBES and LINES: None. LUNGS: Low lung volumes. Peribronchial cuffing and interstitial opacities. No consolidation. PLEURA: No pleural effusion or pneumothorax. HEART AND MEDIASTINUM: The cardiomediastinal silhouette is unremarkable allowing for low lung volumes and technique. BONES AND SOFT TISSUES: No acute osseous lesion. Soft tissues are unremarkable. UPPER ABDOMEN: No free air under the diaphragm. IMPRESSION: Findings which may suggest bronchitis in the appropriate clinical setting. Signed by: DR. David Tim MD on 12/24/2018 6:11 AM
[2018-12-24] MEDS ORDERED: SODIUM CHLORIDE FLUSH 10 ML SYR INJ PRN (06:30)
[2018-12-24] MEDS ORDERED: DEXTROSE 50% SYRINGE 50 ML IV PRN (06:30)
[2018-12-24] MEDS ORDERED: SODIUM BICARBO650 MG PO (06:34)
[2018-12-24] MEDS ORDERED: PROCARDIA XL30 MG PO (06:34)
[2018-12-24] MEDS ORDERED: ULTRAM 50MG50 MG PO (06:34)
[2018-12-24] MEDS ORDERED: NITROGLYCERIN0.4 MG SL (06:34)
[2018-12-24] MEDS ORDERED: VITAMIN B-121000 MCG PO (06:34)
[2018-12-24] MEDS ORDERED: ZOFRAN4 MG SL (06:34)
[2018-12-24] MEDS ORDERED: CLOPIDOGREL75 MG PO (06:34)
[2018-12-24] MEDS ORDERED: CARVEDILOL12.5 MG PO (06:34)
[2018-12-24] MEDS ORDERED: METFORMIN HCL500 MG PO (06:34)
[2018-12-24] MEDS ORDERED: KEPPRA XR500 MG PO (06:34)
[2018-12-24] MEDS ORDERED: CEFEPIME-D1 GM/50 ML IVP (06:34)
[2018-12-24] MEDS ORDERED: VASOTEC5 MG PO (06:34)
[2018-12-24] MEDS ORDERED: ZYVOX600 MG/300 IV (06:34)
[2018-12-24] MEDS ORDERED: HYDRALAZINE HC100 MG PO (06:34)
[2018-12-24] MEDS ORDERED: ATORVASTATIN CA40 MG PO (06:34)
[2018-12-24] MEDS ORDERED: MILK OF MA2400 MG/10 PO (06:34)
[2018-12-24] MEDS ORDERED: FERROUS GLUCON324 M1 PO (06:34)
[2018-12-24] MEDS ORDERED: BACLOFEN10 MG PO (06:34)
[2018-12-24] MEDS ORDERED: NITROGLYCERIN 0.4 MG SUBL SL PRN (06:45)
--- NOTE | 2018-12-24 07:08 | NUR ---
REPORT TO CINTHIA JOEL
[2018-12-24] MEDS: INSULIN REGULAR, HUMAN 100 UNIT/1 ML 3ML VIAL SQ SCH ×2 (07:34→11:55)
--- NOTE | 2018-12-24 08:12 | NUR ---
PT RESTING IN BED C/O BEING COLD GIVEN MORE BLANKETS DENIES ALL OTHER COMPLAINTS AT THIS TIME
[2018-12-24] MEDS: BACLOFEN 10 MG TAB PO SCH ×4 (08:36→21:00)
[2018-12-24] MEDS: CARVEDILOL 12.5 MG TAB PO SCH ×2 (08:36→17:57)
[2018-12-24] MEDS: ENALAPRIL MALEATE 5 MG TAB PO SCH (08:37)
[2018-12-24] MEDS: CYANOCOBALAMIN 1,000 MCG TAB PO SCH (08:37)
[2018-12-24] MEDS: CLOPIDOGREL BISULFATE 75 MG TAB PO SCH (08:37)
[2018-12-24] MEDS: SODIUM BICARBONATE 650 MG TAB PO SCH (08:38)
[2018-12-24] MEDS: FERROUS GLUCONATE 324 MG PO SCH ×2 (08:38→16:59)
[2018-12-24] MEDS: NIFEDIPINE CR 30 MG TAB PO SCH ×2 (08:38→17:57)
[2018-12-24] MEDS ORDERED: LEVETIRACETAM 750 MG PO SCH (09:00)
[2018-12-24] MEDS ORDERED: MAGNESIUM HYDROXIDE 30 ML UDC PO SCH (09:00)
[2018-12-24] MEDS ORDERED: ATORVASTATIN 40 MG TAB PO SCH (09:00)
--- NOTE | 2018-12-24 10:08 | NUR ---
PT PUT IN HOSP BED; NO COMPLAINTS AT THIS TIME
--- NOTE | 2018-12-24 11:44 | NUR ---
PT VOMITED NO BLOOD MOSTLY FOOD CHUNKS WHILE NURSE UPDATED VITAL SIGNS PT STATES SHE NO LONGER FEELS NAUSEOUS
[2018-12-24] MEDS ORDERED: LEVETIRACETAM 500 MG TAB PO SCH ×2 (12:03→21:00)
--- NOTE | 2018-12-24 12:03 | NUR ---
PER DR WICK CHANGE KEPPRA XR 750 MG BID TO KEPPRA XR 750 MG QD; PHARMACY NOTIFIED
[2018-12-24 12:21] LABS: BAND NEUTROPHILS % (MANUAL) 1 %; BLAST CELLS % MANUAL 3; LYMPHOCYTES % (MANUAL) 43 % (19-48); MONOCYTES % (MANUAL) 2 % (3.4-9.0); NEUTROPHILS % (MANUAL) 39 % (40-74)
[2018-12-24 12:22] LABS: ANISOCYTOSIS SLIGHT; HYPOCHROMASIA SLIGHT; RBC MORPHOLOGY COMMENT ABNORMAL
[2018-12-24 12:23] LABS: PLATELET ESTIMATE SLIGHTLY DECREASED; PLATELET MORPHOLOGY COMMENT NORMAL
[2018-12-24 13:50] VITALS: BP 128/57
[2018-12-24] MEDS: HYDRALAZINE HCL 100 MG TABLET PO SCH ×2 (14:02→22:09)
[2018-12-24] MEDS: PROMETHAZINE 12.5MG/ NACL 0.9% 12.5 MG/50 ML BAG IV PRN (14:03)
--- NOTE | 2018-12-24 14:06 | NUR ---
PT STATES SHE DOES NOT WANT TO EAT AT THIS TIME SHE DOES NOT HAVE AN APPETITE
--- NOTE | 2018-12-24 15:15 | NUR ---
Pt received from ER resting in bed. Alert and oriented x2 with saline lock #20 in right hand, and Midline to left upper arm. Oriented to staff and surroundings, encouraged to press call todd if help needed. Pure wick applied. Emotional support given. Fall precautions maintained. Will monitor
[2018-12-24 15:23] VITALS: BP 128/57
[2018-12-24 15:57] VITALS: BP 128/57
[2018-12-24] MEDS: INSULIN LISPRO 100 UNIT/1 ML 3ML VIAL SQ SCH ×2 (16:30→21:00)
[2018-12-24] MEDS: LEVETIRACETAM 500 MG TAB PO SCH (17:57)
--- NOTE | 2018-12-24 18:12 | Diagnostic Imaging Report ---
Exam: Abdominal film Clinical History: Bacteremia, infection, vomiting Comparison: None. DISCUSSION: Frontal view of the abdomen shows a nonobstructive bowel gas pattern with no significant amount of retained stool.There are no dilated, air-filled loops of bowel. There is noted in the rectum. There are no abnormal calcifications.No acute bone abnormality. Mild leftward curvature of the lumbar spine. IMPRESSION: 1. Nonobstructive bowel gas pattern. The staff physician below has personally reviewed this exam on the date of dictation. Signed by: Dr. Syd Cooney M.D. on 12/24/2018 6:08 PM
--- NOTE | 2018-12-24 19:33 | NUR ---
Pt resting in bed with daughters at bedside. Emotional support given. Call todd within reach. Endorsed to oncoming nurse.
--- NOTE | 2018-12-24 19:39 | NUR ---
RECEIVED PT IN BED AOX2 .RESPIRATIONS ARE EVEN AND UNLABORED .RT HAND CONTRACTED .REDNESS TO THE BOTTOM.FAMILY AT THE BEDSIDE .CONTINUE TO MONITOR
[2018-12-24 20:00] VITALS: BP 131/60
[2018-12-24 20:06] VITALS: BP 128/57
[2018-12-24] MEDS: BALSAM PERU/CASTOR OIL 60 GM OINT...G. TP SCH (21:00)
[2018-12-25] VITALS (7 sets, daily range): BP systolic 129–154; BP diastolic 59–66
--- NOTE | 2018-12-25 05:47 | Consultation ---
DATE OF CONSULTATION: Consultation Note REASON FOR CONSULTATION: Bacteremia with Acinetobacter. HISTORY OF PRESENT ILLNESS: This patient, who is coming [facility] us [place] a jail, apparently she had a PICC line, which was removed. 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 She did have a PICC line apparently at the jail. Her blood cultures showed that she had Acinetobacter baumannii with sensitivity pattern. The patient, who also has severe aspiration pneumonia, insomnia, anemia, and history for nausea before. PAST SURGICAL HISTORY: As above. ALLERGIES: NKA. SOCIAL HISTORY: She is from jail. FAMILY HISTORY: Could not be obtained. REVIEW OF SYSTEMS: HEENT: Negative. PULMONARY: Negative. Her family is at the bedside. IMPRESSION: 1. Bacteremia with Acinetobacter baumannii. We will put her on Unasyn and gentamicin single daily dose. We will follow trough. Follow levels of 14 hours, plan for 14 days. Recheck her blood cultures. 2. Chronic kidney disease. 3. Diabetes mellitus. 4. Hemiplegia. 5. Muscle wasting. Further recommendations to follow. MD BRYANT Armando/CIELO /[id number]
--- NOTE | 2018-12-25 05:55 | NUR ---
PT RESTING .DENIES PAIN .NO ACUTE DISTRESS NOTED .CALL LIGHT WITH IN REACH .CONTINUE TO MONITOR
[2018-12-25] MEDS: HYDRALAZINE HCL 100 MG TABLET PO SCH ×3 (06:11→22:00)
[2018-12-25 06:16] LABS: BASOPHILS # (AUTO) 0.1 (0.0-0.1); BASOPHILS % 0.6 % (0.0-1.0); EOSINOPHILS # (AUTO) 0.2 (0.0-0.4); EOSINOPHILS % 2.6 % (0.0-6.0); HEMATOCRIT 24.1 % (34.2-44.1); HEMOGLOBIN 7.5 g/dL (12.0-16.0); LYMPHOCYTES # (AUTO) 4.9 (1.0-3.2); LYMPHOCYTES % 58.2 % (18.0-39.1); MEAN CORPUSCULAR HEMOGLOBIN 29.6 pg (28-32); MEAN CORPUSCULAR HGB CONC 31.1 g/dL (31-35); MEAN CORPUSCULAR VOLUME 95.3 fL (81-99); MONOCYTES # (AUTO) 0.5 (0.2-0.8); MONOCYTES % 5.6 % (4.4-11.3); NEUTROPHILS # (AUTO) 2.7 (2.1-6.9); NEUTROPHILS % 32.2 % (38.7-80.0); PLATELET COUNT 121 x10e3/uL (140-360); RED BLOOD COUNT 2.53 x10e6/uL (3.6-5.1); RED CELL DISTRIBUTION WIDTH 15.7 % (11.7-14.4)
[2018-12-25 06:37] LABS: ALANINE AMINOTRANSFERASE 18 IU/L (0-55); ALBUMIN 2.3 g/dL (3.5-5.0); ALBUMIN/GLOBULIN RATIO 0.9 (0.8-2.0); ALKALINE PHOSPHATASE 80 IU/L (40-150); ANION GAP 9.1 mmol/L (8-16); BLOOD UREA NITROGEN 18 mg/dL (7-26); BUN/CREATININE RATIO 21 (6-25); CALCIUM 7.8 mg/dL (8.4-10.2); CARBON DIOXIDE 23 mmol/L (22-29); CHLORIDE 110 mmol/L (98-107); CREATININE, SERUM 0.84 mg/dL (0.57-1.11); EST GLOMERULAR FILTRATION RATE > 60 ML/MIN (60-); GLUCOSE 76 mg/dL (74-118); POTASSIUM 4.1 mmol/L (3.5-5.1); SODIUM 138 mmol/L (136-145)
[2018-12-25] MEDS: INSULIN LISPRO 100 UNIT/1 ML 3ML VIAL SQ SCH ×4 (07:30→21:36)
[2018-12-25] MEDS ORDERED: GENTAMICIN SULFATE 15 GM CR TP SCH (09:00)
[2018-12-25] MEDS: FERROUS GLUCONATE 324 MG PO SCH ×2 (09:00→16:29)
[2018-12-25] MEDS ORDERED: GENTAMICIN 80MG/NS 100 ML 100 ML IV SCH (09:00)
--- NOTE | 2018-12-25 09:55 | NUR ---
Pt received resting in bed. All meds given as ordered. Emotional support given. Call todd within reach. Will monitor
[2018-12-25] MEDS: CARVEDILOL 12.5 MG TAB PO SCH ×2 (10:10→18:30)
[2018-12-25] MEDS: CLOPIDOGREL BISULFATE 75 MG TAB PO SCH (10:11)
[2018-12-25] MEDS: LEVETIRACETAM 500 MG TAB PO SCH ×2 (10:11→18:30)
[2018-12-25] MEDS: NIFEDIPINE CR 30 MG TAB PO SCH ×2 (10:11→18:31)
[2018-12-25] MEDS: BACLOFEN 10 MG TAB PO SCH ×4 (10:11→21:35)
[2018-12-25] MEDS: ENALAPRIL MALEATE 5 MG TAB PO SCH (10:11)
[2018-12-25] MEDS: SODIUM BICARBONATE 650 MG TAB PO SCH (10:11)
[2018-12-25] MEDS: CYANOCOBALAMIN 1,000 MCG TAB PO SCH (10:11)
[2018-12-25] MEDS: BALSAM PERU/CASTOR OIL 60 GM OINT...G. TP SCH ×2 (10:11→21:43)
[2018-12-25] MEDS ORDERED: SODIUM CHLORIDE 0.9% 250ML 250 ML ONE (11:01)
[2018-12-25] MEDS: SODIUM CHLORIDE 0.9% IV SCH (11:24)
[2018-12-25] MEDS: GENTAMICIN SULFATE IV SCH (11:24)
[2018-12-25 12:15] LABS: BLAST CELLS % MANUAL 6; EOSINOPHILS % (MANUAL) 2 % (0-7); LYMPHOCYTES % (MANUAL) 47 % (19-48); MONOCYTES % (MANUAL) 5 % (3.4-9.0); NEUTROPHILS % (MANUAL) 40 % (40-74)
[2018-12-25 12:16] LABS: HYPOCHROMASIA MODERATE; PLATELET ESTIMATE SLIGHTLY DECREASED; PLATELET MORPHOLOGY COMMENT NORMAL; RBC MORPHOLOGY COMMENT NORMAL
[2018-12-25] MEDS: PROMETHAZINE 12.5MG/ NACL 0.9% 12.5 MG/50 ML BAG IV PRN (12:34)
--- NOTE | 2018-12-25 16:42 | NUR ---
CASE MANAGEMENT INITIAL ASSESSMENT Drier Attendant to bedside to discuss plan of care with patient/family. CM/SW role and care transitions discussed. Anticipated discharge plan discussed along with duration of care. CM/SW discussed patients right to make decisions in care. CM/SW work hours given. Patient lives: LIVES AT [facility] Admit/Transfer: ER Hospital/ER visits since last admit:NO POA/Emergency contact: NONE LISTED Current/Previous Home Health: NO PCP/Follow-up Care: [facility] Current/Previous DME: NO Medications (referring to index hospitalization or the first time you were in the hospital) a. Were changes made in your medications when you were in the hospital on [date of index hospitalization]? Not sure Explain: Note: If no or not sure, please skip to question d b. Did you understand the changes? Yes No Explain: c. Were you able to obtain your new medications right away? Yes No n/a SNF only Explain: d. Were you able to take your medications like the doctor wanted you to? TAKING PER [facility] ORDERS e. Did the hospital give you an accurate, easy to understand list of medications when you left? N/A Scale of 1-10 how comfortable does patient feel with disease management in outpatient setting: Other Services: NONE Employment Status: RETIRED Areas of Concerns: NONE Referral Needs: TO BE DETERMINED Education Needs: TO BE DETERMINED IMM/SHI given and signed (if applicable): IMM ON ADMIT Goal for discharge:PT ALERT; EAGER TO GO BACK TO [facility] WHERE SHE LIVES CM/SW left business card at the bedside with contact information. Name and number was also written on the patients whiteboard. Patient verbalized understanding of discussion. CM will follow-up with ongoing discharge and transition of care needs.
--- NOTE | 2018-12-25 18:20 | NUR ---
Pt noted with no urine output for about 6 hours. Encouraged pt to eat but she stated that she's afraid to eat because she will "throw up". Advised pt to eat, and stated that if she has nausea, she can call for meds. Bladder scan revealed >200ML. Dr. Ring notified. Advised to give LR 500ML bolus, then 100ML fluid per hour afterwards. Will follow up
[2018-12-25] MEDS: LACTOBACILLUS ACIDOPHILUS CAPSULE PO SCH (18:30)
[2018-12-25] MEDS ORDERED: LACTATED RINGER'S 500 ML IV ONE (18:30)
[2018-12-25] MEDS: AMPICILLIN SOD/SULBACTAM 3GM 100 ML IV SCH ×2 (18:31→23:59)
[2018-12-25] MEDS: LACTATED RINGER'S 1,000 ML IV SCH (19:20)
--- NOTE | 2018-12-25 19:34 | NUR ---
Noted about 250ML of urine in canister. Bolus started as ordered. Emotional support given. Handoff given to oncoming nurse.
--- NOTE | 2018-12-25 20:00 | NUR ---
RECEIVED PT IN BED AOX2 .PT HAS PURWICK .PT DENIES PAIN .RESPIRATIONS ARE EVEN AND UNLABORED MIDLINE IS REMOVED .PT IS ON LR AT 100CC/HR .PT ALREADY GOT LR 500 BOLUS .CALL LIGHT WITH IN REACH .CONTINUE TO MONITOR
[2018-12-25] MEDS: ATORVASTATIN 40 MG TAB PO SCH (21:42)
[2018-12-26] VITALS (8 sets, daily range): BP systolic 126–156; BP diastolic 59–71
[2018-12-26 02:53] LABS: ANION GAP 11.2 mmol/L (8-16); CALCIUM 7.4 mg/dL (8.4-10.2); CREATININE, SERUM 1.04 mg/dL (0.57-1.11); POTASSIUM 4.2 mmol/L (3.5-5.1)
[2018-12-26] MEDS: LACTATED RINGER'S 1,000 ML IV SCH ×2 (04:30→23:43)
--- NOTE | 2018-12-26 05:59 | NUR ---
PT RESTING DENIES PAIN .PT REFUSED TO TAKE THE MORNING B/P MEDS .CALL LIGHT WITH IN REACH .CONTINUE TO MONITOR
[2018-12-26] MEDS: HYDRALAZINE HCL 100 MG TABLET PO SCH ×3 (06:00→21:24)
[2018-12-26] MEDS: AMPICILLIN SOD/SULBACTAM 3GM 100 ML IV SCH ×3 (06:00→23:43)
[2018-12-26 06:21] LABS: BASOPHILS % 0.4 % (0.0-1.0); EOSINOPHILS # (AUTO) 0.3 (0.0-0.4); EOSINOPHILS % 2.7 % (0.0-6.0); HEMATOCRIT 23.4 % (34.2-44.1); HEMOGLOBIN 7.4 g/dL (12.0-16.0); LYMPHOCYTES % 61.9 % (18.0-39.1); MEAN CORPUSCULAR HGB CONC 31.6 g/dL (31-35); MEAN CORPUSCULAR VOLUME 94.7 fL (81-99); MONOCYTES # (AUTO) 0.5 (0.2-0.8); MONOCYTES % 5.6 % (4.4-11.3); NEUTROPHILS # (AUTO) 2.8 (2.1-6.9); NEUTROPHILS % 28.9 % (38.7-80.0); PLATELET COUNT 119 x10e3/uL (140-360); RED BLOOD COUNT 2.47 x10e6/uL (3.6-5.1); RED CELL DISTRIBUTION WIDTH 15.9 % (11.7-14.4)
--- NOTE | 2018-12-26 07:26 | NUR ---
PATIENT IN BED RESTING WITH NO S/S OF DISTRESS. WEAKNESS TO RIGHT SIDE OF BODY, PUREWICK CATHETER IN PLACE DRAINING CLEAR YELLOW URINE. BED IN LOWER POSITION AND LOCKED, CALL LIGHT AT REACH.
[2018-12-26] MEDS: INSULIN LISPRO 100 UNIT/1 ML 3ML VIAL SQ SCH ×4 (07:30→21:25)
--- NOTE | 2018-12-26 07:31 | NUR ---
REPORT GIVEN TO THE [facility] FOR CONTINUING CARE.
[2018-12-26] MEDS: FERROUS GLUCONATE 324 MG PO SCH ×2 (09:00→17:00)
[2018-12-26] MEDS: NIFEDIPINE CR 30 MG TAB PO SCH ×2 (09:00→17:00)
[2018-12-26] MEDS: SODIUM BICARBONATE 650 MG TAB PO SCH (09:04)
[2018-12-26] MEDS: BACLOFEN 10 MG TAB PO SCH ×4 (09:04→21:23)
[2018-12-26] MEDS: LEVETIRACETAM 500 MG TAB PO SCH ×2 (09:04→17:32)
[2018-12-26] MEDS: LACTOBACILLUS ACIDOPHILUS CAPSULE PO SCH ×2 (09:04→17:32)
[2018-12-26] MEDS: CARVEDILOL 12.5 MG TAB PO SCH ×2 (09:04→17:32)
[2018-12-26] MEDS: CLOPIDOGREL BISULFATE 75 MG TAB PO SCH (09:04)
[2018-12-26] MEDS: BALSAM PERU/CASTOR OIL 60 GM OINT...G. TP SCH ×2 (09:05→21:24)
[2018-12-26] MEDS: ENALAPRIL MALEATE 5 MG TAB PO SCH (09:05)
[2018-12-26] MEDS: CYANOCOBALAMIN 1,000 MCG TAB PO SCH (09:05)
--- NOTE | 2018-12-26 10:15 | NUR ---
EXPLAINED IMM LETTER TO PT. VERBALIZED UNDERSTANDING. IMM LETTER WAS SIGNED AND COPY PT AND COPY TO CHART.
--- NOTE | 2018-12-26 11:14 | NUR ---
PATIENT IN ROOM EXERCISING WITH PHYSICAL THERAPY, NO COMPLAIN VOICED. WILL CLOSELY MONITOR.
[2018-12-26] MEDS: GENTAMICIN SULFATE IV SCH (14:16)
[2018-12-26] MEDS: SODIUM CHLORIDE 0.9% IV SCH (14:16)
--- NOTE | 2018-12-26 15:59 | NUR ---
PATIENT ASSISTED WITH DIAPER CHANGE. REPOSITIONED IN BED, CALL LIGHT AT REACH.
--- NOTE | 2018-12-26 19:15 | NUR ---
1800 KEFZOL DOSE NOT CHARTED BY PREVIOUS NURSE, HOWEVER, IT WAS GIVEN ITS CURRENTLY IUNFUSING IN THE IV PUMP.
[2018-12-26] MEDS: ATORVASTATIN 40 MG TAB PO SCH (21:24)
[2018-12-27] VITALS (9 sets, daily range): BP systolic 134–166; BP diastolic 60–72
[2018-12-27] MEDS: LACTATED RINGER'S 1,000 ML IV SCH ×2 (00:30→13:55)
[2018-12-27] MEDS: AMPICILLIN SOD/SULBACTAM 3GM 100 ML IV SCH ×3 (05:34→17:18)
[2018-12-27] MEDS: HYDRALAZINE HCL 100 MG TABLET PO SCH ×3 (05:41→22:00)
[2018-12-27 07:06] LABS: BASOPHILS % 0.4 % (0.0-1.0); EOSINOPHILS # (AUTO) 0.3 (0.0-0.4); EOSINOPHILS % 2.3 % (0.0-6.0); HEMOGLOBIN 7.3 g/dL (12.0-16.0); LYMPHOCYTES # (AUTO) 6.4 (1.0-3.2); LYMPHOCYTES % 58.5 % (18.0-39.1); MEAN CORPUSCULAR HEMOGLOBIN 30.3 pg (28-32); MEAN CORPUSCULAR VOLUME 94.6 fL (81-99); MONOCYTES # (AUTO) 0.7 (0.2-0.8); MONOCYTES % 6.2 % (4.4-11.3); NEUTROPHILS # (AUTO) 3.5 (2.1-6.9); PLATELET COUNT 110 x10e3/uL (140-360); RED BLOOD COUNT 2.41 x10e6/uL (3.6-5.1); RED CELL DISTRIBUTION WIDTH 15.7 % (11.7-14.4)
[2018-12-27 07:14] LABS: HEMATOCRIT 22.8 % (34.2-44.1)
--- NOTE | 2018-12-27 07:18 | NUR ---
pt asleep resp even and unlabored at this time no distress noted, pt has family member at bedside, pt easily aroused at this time, pt able to make needs known, call light in reach.
--- NOTE | 2018-12-27 07:19 | NUR ---
JIMMY WILL CALL WITH CRITICAL H/H/. NURSE JACK TO RECEIVE CALL
[2018-12-27 07:24] LABS: ANION GAP 10.3 mmol/L (8-16); BLOOD UREA NITROGEN 22 mg/dL (7-26); BUN/CREATININE RATIO 27 (6-25); CALCIUM 7.1 mg/dL (8.4-10.2); CARBON DIOXIDE 23 mmol/L (22-29); CHLORIDE 110 mmol/L (98-107); CREATININE, SERUM 0.81 mg/dL (0.57-1.11); EST GLOMERULAR FILTRATION RATE > 60 ML/MIN (60-); GLUCOSE 102 mg/dL (74-118); POTASSIUM 4.3 mmol/L (3.5-5.1); SODIUM 139 mmol/L (136-145)
[2018-12-27] MEDS: INSULIN LISPRO 100 UNIT/1 ML 3ML VIAL SQ SCH ×4 (07:30→21:00)
[2018-12-27] MEDS: FERROUS GLUCONATE 324 MG PO SCH ×2 (09:00→17:00)
[2018-12-27 09:17] LABS: BAND NEUTROPHILS % (MANUAL) 2 %; HYPOCHROMASIA MODERATE; LYMPHOCYTES % (MANUAL) 31 % (19-48); MONOCYTES % (MANUAL) 8 % (3.4-9.0); NEUTROPHILS % (MANUAL) 51 % (40-74)
[2018-12-27 09:18] LABS: ANISOCYTOSIS SLIGHT; PLATELET ESTIMATE SLIGHTLY DECREASED; PLATELET MORPHOLOGY COMMENT NORMAL; RBC MORPHOLOGY COMMENT NORMAL
[2018-12-27] MEDS: LACTOBACILLUS ACIDOPHILUS CAPSULE PO SCH ×2 (09:36→16:59)
[2018-12-27] MEDS: LEVETIRACETAM 500 MG TAB PO SCH ×2 (09:36→16:59)
[2018-12-27] MEDS: NIFEDIPINE CR 30 MG TAB PO SCH ×2 (09:36→16:59)
[2018-12-27] MEDS: CARVEDILOL 12.5 MG TAB PO SCH ×2 (09:36→16:59)
[2018-12-27] MEDS: CLOPIDOGREL BISULFATE 75 MG TAB PO SCH (09:36)
[2018-12-27] MEDS: BACLOFEN 10 MG TAB PO SCH ×4 (09:36→21:51)
[2018-12-27] MEDS: CYANOCOBALAMIN 1,000 MCG TAB PO SCH (09:37)
[2018-12-27] MEDS: BALSAM PERU/CASTOR OIL 60 GM OINT...G. TP SCH ×2 (09:37→21:51)
[2018-12-27] MEDS: ENALAPRIL MALEATE 5 MG TAB PO SCH (09:37)
[2018-12-27] MEDS: SODIUM BICARBONATE 650 MG TAB PO SCH (13:55)
[2018-12-27] MEDS: SODIUM CHLORIDE 0.9% IV SCH (14:30)
[2018-12-27] MEDS: GENTAMICIN SULFATE IV SCH (14:30)
--- NOTE | 2018-12-27 19:48 | NUR ---
report given to oncoming nurse, for continued care
--- NOTE | 2018-12-27 20:10 | NUR ---
RECEIVED PT IN BED AOX2 .PT HAS PURWICK .PT DENIES PAIN .RESPIRATIONS ARE EVEN AND UNLABORED .PT IS ON LR AT 100CC/HR . .CALL LIGHT WITH IN REACH .CONTINUE TO MONITOR
[2018-12-27] MEDS: ATORVASTATIN 40 MG TAB PO SCH (21:51)
[2018-12-28] VITALS (7 sets, daily range): BP systolic 123–155; BP diastolic 59–67
[2018-12-28] MEDS: LACTATED RINGER'S 1,000 ML IV SCH ×3 (02:52→18:13)
[2018-12-28] MEDS: AMPICILLIN SOD/SULBACTAM 3GM 100 ML IV SCH ×4 (05:47→19:41)
[2018-12-28] MEDS: HYDRALAZINE HCL 100 MG TABLET PO SCH ×3 (05:47→22:45)
--- NOTE | 2018-12-28 06:12 | NUR ---
NO ACUTE DISTRESS NOTED .DENIES PAIN .CALL LIGHT WITH IN REACH .CONTINUE TO MONITOR
[2018-12-28 06:19] LABS: BASOPHILS # (AUTO) 0.1 (0.0-0.1); BASOPHILS % 0.5 % (0.0-1.0); EOSINOPHILS # (AUTO) 0.3 (0.0-0.4); EOSINOPHILS % 2.9 % (0.0-6.0); HEMATOCRIT 23.1 % (34.2-44.1); HEMOGLOBIN 7.2 g/dL (12.0-16.0); LYMPHOCYTES # (AUTO) 6.4 (1.0-3.2); LYMPHOCYTES % 58.8 % (18.0-39.1); MEAN CORPUSCULAR HEMOGLOBIN 29.5 pg (28-32); MEAN CORPUSCULAR HGB CONC 31.2 g/dL (31-35); MEAN CORPUSCULAR VOLUME 94.7 fL (81-99); MONOCYTES # (AUTO) 0.8 (0.2-0.8); NEUTROPHILS # (AUTO) 3.3 (2.1-6.9); NEUTROPHILS % 30.2 % (38.7-80.0); PLATELET COUNT 112 x10e3/uL (140-360); RED BLOOD COUNT 2.44 x10e6/uL (3.6-5.1); RED CELL DISTRIBUTION WIDTH 15.7 % (11.7-14.4)
[2018-12-28 06:42] LABS: ANION GAP 11.3 mmol/L (8-16); CALCIUM 7.1 mg/dL (8.4-10.2); CREATININE, SERUM 0.98 mg/dL (0.57-1.11); POTASSIUM 4.3 mmol/L (3.5-5.1)
[2018-12-28] MEDS: INSULIN LISPRO 100 UNIT/1 ML 3ML VIAL SQ SCH ×4 (07:30→21:45)
--- NOTE | 2018-12-28 07:34 | NUR ---
REPORT GIVEN TO THE ONCOMING NURSE
[2018-12-28] MEDS: CLOPIDOGREL BISULFATE 75 MG TAB PO SCH (10:24)
[2018-12-28] MEDS: LEVETIRACETAM 500 MG TAB PO SCH ×2 (10:24→17:00)
[2018-12-28] MEDS: BACLOFEN 10 MG TAB PO SCH ×4 (10:24→21:45)
[2018-12-28] MEDS: CARVEDILOL 12.5 MG TAB PO SCH ×2 (10:24→17:00)
[2018-12-28] MEDS: NIFEDIPINE CR 30 MG TAB PO SCH ×2 (10:25→17:00)
[2018-12-28] MEDS: ENALAPRIL MALEATE 5 MG TAB PO SCH (10:25)
[2018-12-28] MEDS: SODIUM BICARBONATE 650 MG TAB PO SCH (10:25)
[2018-12-28] MEDS: LACTOBACILLUS ACIDOPHILUS CAPSULE PO SCH ×2 (10:25→17:00)
[2018-12-28] MEDS: CYANOCOBALAMIN 1,000 MCG TAB PO SCH (10:25)
[2018-12-28] MEDS: BALSAM PERU/CASTOR OIL 60 GM OINT...G. TP SCH ×2 (10:25→21:45)
[2018-12-28] MEDS: FERROUS GLUCONATE 324 MG PO SCH ×2 (10:26→20:00)
[2018-12-28] MEDS: SODIUM CHLORIDE 0.9% IV SCH (13:08)
[2018-12-28] MEDS: GENTAMICIN SULFATE IV SCH (13:08)
--- NOTE | 2018-12-28 15:51 | NUR ---
EXPLAINED IMM LETTER TO PT. VERBALIZED UNDERSTANDING. IMM LETTER WAS SIGNED AND COPY PT AND COPY TO CHART. PT STATES SHE WILL DC OVER THE WEEKEND; 12/30/2018
--- NOTE | 2018-12-28 19:20 | NUR ---
Bedside rounds completed with morning nurse. Pt alert to name. Lying in bed 45 degrees. Denies pain at this time. Call todd within reach. Bed low and locked. Will continue to monitor.
[2018-12-28] MEDS: ATORVASTATIN 40 MG TAB PO SCH (21:45)
[2018-12-29] VITALS (8 sets, daily range): BP systolic 134–156; BP diastolic 63–65
[2018-12-29] MEDS: AMPICILLIN SOD/SULBACTAM 3GM 100 ML IV SCH ×5 (00:21→23:50)
[2018-12-29] MEDS: LACTATED RINGER'S 1,000 ML IV SCH ×3 (05:20→23:50)
[2018-12-29] MEDS: HYDRALAZINE HCL 100 MG TABLET PO SCH ×3 (06:17→21:56)
[2018-12-29 06:24] LABS: BASOPHILS # (AUTO) 0.1 (0.0-0.1); BASOPHILS % 0.4 % (0.0-1.0); EOSINOPHILS # (AUTO) 0.3 (0.0-0.4); EOSINOPHILS % 2.8 % (0.0-6.0); LYMPHOCYTES % 62.3 % (18.0-39.1); MEAN CORPUSCULAR HEMOGLOBIN 29.4 pg (28-32); MEAN CORPUSCULAR HGB CONC 31.3 g/dL (31-35); MEAN CORPUSCULAR VOLUME 93.9 fL (81-99); MONOCYTES # (AUTO) 0.7 (0.2-0.8); MONOCYTES % 6.5 % (4.4-11.3); NEUTROPHILS # (AUTO) 3.1 (2.1-6.9); NEUTROPHILS % 27.4 % (38.7-80.0); PLATELET COUNT 119 x10e3/uL (140-360); RED BLOOD COUNT 2.31 x10e6/uL (3.6-5.1); RED CELL DISTRIBUTION WIDTH 16.1 % (11.7-14.4)
[2018-12-29 06:32] LABS: HEMATOCRIT 21.7 % (34.2-44.1); HEMOGLOBIN 6.8 g/dL (12.0-16.0)
[2018-12-29 07:07] LABS: ANION GAP 12.3 mmol/L (8-16); CALCIUM 7.2 mg/dL (8.4-10.2); CREATININE, SERUM 0.95 mg/dL (0.57-1.11); POTASSIUM 4.3 mmol/L (3.5-5.1)
[2018-12-29] MEDS ORDERED: SODIUM CHLORIDE 0.9% 250ML 250 ML IV ONE (07:15)
[2018-12-29] MEDS: INSULIN LISPRO 100 UNIT/1 ML 3ML VIAL SQ SCH ×4 (07:30→21:57)
[2018-12-29 07:37] LABS: BAND NEUTROPHILS % (MANUAL) 1 %; EOSINOPHILS % (MANUAL) 2 % (0-7); LYMPHOCYTES % (MANUAL) 65 % (19-48); MONOCYTES % (MANUAL) 3 % (3.4-9.0); NEUTROPHILS % (MANUAL) 26 % (40-74)
[2018-12-29 07:38] LABS: ANISOCYTOSIS SLIGHT; PLATELET ESTIMATE SLIGHTLY DECREASED; PLATELET MORPHOLOGY COMMENT NORMAL; RBC MORPHOLOGY COMMENT ABNORMAL
[2018-12-29 07:39] LABS: SMUDGE CELLS FEW
[2018-12-29] MEDS: SODIUM BICARBONATE 650 MG TAB PO SCH (09:11)
[2018-12-29] MEDS: BACLOFEN 10 MG TAB PO SCH ×4 (09:11→21:56)
[2018-12-29] MEDS: CLOPIDOGREL BISULFATE 75 MG TAB PO SCH (09:11)
[2018-12-29] MEDS: FERROUS GLUCONATE 324 MG PO SCH ×2 (09:11→17:09)
[2018-12-29] MEDS: LEVETIRACETAM 500 MG TAB PO SCH ×2 (09:11→17:09)
[2018-12-29] MEDS: CARVEDILOL 12.5 MG TAB PO SCH ×2 (09:11→19:31)
[2018-12-29] MEDS: LACTOBACILLUS ACIDOPHILUS CAPSULE PO SCH ×2 (09:11→17:09)
[2018-12-29] MEDS: NIFEDIPINE CR 30 MG TAB PO SCH ×2 (09:11→19:31)
[2018-12-29] MEDS: BALSAM PERU/CASTOR OIL 60 GM OINT...G. TP SCH ×2 (09:12→21:56)
[2018-12-29] MEDS: ENALAPRIL MALEATE 5 MG TAB PO SCH (09:12)
[2018-12-29] MEDS: CYANOCOBALAMIN 1,000 MCG TAB PO SCH (09:12)
[2018-12-29] MEDS ORDERED: SODIUM CHLORIDE 0.9% 250ML 250 ML ONE (10:45)
--- NOTE | 2018-12-29 10:51 | NUR ---
Blood transfusion start time. Pt laying in bed. VS WNL. IV patent, asymptomatic and intact. No c/o pain. IV 20g to R wrist. Continuing to monitor
--- NOTE | 2018-12-29 13:58 | NUR ---
Nutrition Screen Note RD Recommendation for Physician: continue diet as ordered Plan of Care: RD following, monitoring for adequacy and tolerance Nutrition reason for involvement: LOS Primary Diagnose(s):Bacteremia, Ht:57 in Wt:115lbs BMI:24.9 kg/m2 IBW:85lbs RD Assessment:(12/29/2018) Initial encounter with patient. Diet Hx: Pt states that she is allergic to milk, mayonnaise and ranch dressing and she gets hives. Pt denies any difficulty chewing or swallowing nor has any nausea or vomiting. Current Diet: 1800 ADA Malnutrition Evaluation (12/29/2018) The patient does not meet criteria for a specified degree of malnutrition at this time. Will re-evaluate at follow-up as appropriate. Diet Education Needs Assessment: Diet education not indicated. Diet Adequacy: Meeting calorie needs, Meeting protein needs, Meeting fluid needs Tolerance: Tolerating PO Nutrition Care Level:Oziel De Los Santos RD, LD, CNSC
[2018-12-29] MEDS ORDERED: FUROSEMIDE INJ 10 MG/ML 2 ML VIAL IV ONE (14:00)
--- NOTE | 2018-12-29 15:18 | Diagnostic Imaging Report ---
EXAMINATION: CHEST SINGLE (PORTABLE) INDICATION: ^CONGESTION ^[id number] ^1400 COMPARISON: 12/24/2018 FINDINGS: AP view TUBES and LINES: None. LUNGS: Limited by low lung volumes and body habitus. Pulmonary vascular congestion. PLEURA: No pleural effusion or pneumothorax. HEART AND MEDIASTINUM: The cardiomediastinal silhouette is enlarged. BONES AND SOFT TISSUES: No acute osseous lesion. Soft tissues are unremarkable. UPPER ABDOMEN: No free air under the diaphragm. IMPRESSION: Enlarged cardiac mediastinal silhouette and pulmonary vascular congestion, accentuated by low lung volumes. Signed by: Dr. Gilbert Bateman MD on 12/29/2018 3:14 PM
--- NOTE | 2018-12-29 19:10 | NUR ---
Rounds completed with morning nurse. Pt alert to name. Sitting in high Temple's position. Denies pain at this time. Call todd within reach. Bed low and locked. Family at bedside. Will continue to monitor.
[2018-12-29] MEDS: ATORVASTATIN 40 MG TAB PO SCH (21:56)
[2018-12-30] VITALS (9 sets, daily range): BP systolic 120–164; BP diastolic 56–76
[2018-12-30] MEDS: ONDANSETRON HCL INJ 2MG/ML 2ML 2 MG/ML VIAL IV PRN ×2 (01:00→06:00)
[2018-12-30] MEDS: TRAMADOL HCL 50 MG TAB PO PRN (02:00)
[2018-12-30 05:55] LABS: BASOPHILS # (AUTO) 0.1 (0.0-0.1); BASOPHILS % 0.4 % (0.0-1.0); EOSINOPHILS # (AUTO) 0.4 (0.0-0.4); EOSINOPHILS % 2.8 % (0.0-6.0); HEMATOCRIT 28.5 % (34.2-44.1); HEMOGLOBIN 9.2 g/dL (12.0-16.0); LYMPHOCYTES # (AUTO) 8.3 (1.0-3.2); LYMPHOCYTES % 61.4 % (18.0-39.1); MEAN CORPUSCULAR HEMOGLOBIN 29.9 pg (28-32); MEAN CORPUSCULAR HGB CONC 32.3 g/dL (31-35); MEAN CORPUSCULAR VOLUME 92.5 fL (81-99); MONOCYTES # (AUTO) 0.9 (0.2-0.8); MONOCYTES % 6.3 % (4.4-11.3); NEUTROPHILS # (AUTO) 3.9 (2.1-6.9); NEUTROPHILS % 28.6 % (38.7-80.0); PLATELET COUNT 140 x10e3/uL (140-360); RED BLOOD COUNT 3.08 x10e6/uL (3.6-5.1); RED CELL DISTRIBUTION WIDTH 16.5 % (11.7-14.4)
[2018-12-30 06:15] LABS: ANION GAP 13.4 mmol/L (8-16); CALCIUM 7.6 mg/dL (8.4-10.2); CREATININE, SERUM 1.13 mg/dL (0.57-1.11); MAGNESIUM 1.4 MG/DL (1.3-2.1); POTASSIUM 4.4 mmol/L (3.5-5.1)
[2018-12-30] MEDS: AMPICILLIN SOD/SULBACTAM 3GM 100 ML IV SCH ×3 (06:23→20:30)
[2018-12-30] MEDS: HYDRALAZINE HCL 100 MG TABLET PO SCH ×3 (06:23→22:10)
[2018-12-30] MEDS: PROMETHAZINE 12.5MG/ NACL 0.9% 12.5 MG/50 ML BAG IV PRN (06:53)
--- NOTE | 2018-12-30 06:55 | NUR ---
PT C/O NAUSEA, X3 CLEAR VOMITED NOTED. PT STATED, "I'M NOT FEELING WELL". ELEVATED HOB 90 DEGREES. ADMIN PRN PROMETHAZINE 12.5MG IN 50ML NS. APPLIED TEPID TOWEL TO FOREHEAD. 20MG IV RT WRIST OF LR. CALL KIRAN WITHIN. REPORT GIVEN TO MORNING NURSE.
[2018-12-30] MEDS: INSULIN LISPRO 100 UNIT/1 ML 3ML VIAL SQ SCH ×4 (07:30→21:00)
[2018-12-30] MEDS: FERROUS GLUCONATE 324 MG PO SCH ×2 (10:30→18:10)
[2018-12-30] MEDS: LACTOBACILLUS ACIDOPHILUS CAPSULE PO SCH ×2 (10:30→18:10)
[2018-12-30] MEDS: CARVEDILOL 12.5 MG TAB PO SCH ×2 (10:30→18:10)
[2018-12-30] MEDS: BACLOFEN 10 MG TAB PO SCH ×4 (10:30→21:00)
[2018-12-30] MEDS: LEVETIRACETAM 500 MG TAB PO SCH ×2 (10:30→18:10)
[2018-12-30] MEDS: SODIUM BICARBONATE 650 MG TAB PO SCH (10:31)
[2018-12-30] MEDS: NIFEDIPINE CR 30 MG TAB PO SCH ×2 (10:31→18:10)
[2018-12-30] MEDS: ENALAPRIL MALEATE 5 MG TAB PO SCH (10:31)
[2018-12-30] MEDS: CLOPIDOGREL BISULFATE 75 MG TAB PO SCH (10:31)
[2018-12-30] MEDS: BALSAM PERU/CASTOR OIL 60 GM OINT...G. TP SCH ×2 (10:31→21:00)
[2018-12-30] MEDS: CYANOCOBALAMIN 1,000 MCG TAB PO SCH (10:31)
[2018-12-30] MEDS: LACTATED RINGER'S 1,000 ML IV SCH ×2 (10:32→18:52)
[2018-12-30] MEDS: ACETAMINOPHEN 325 MG TAB PO PRN (15:50)
[2018-12-30 16:21] LABS: BASOPHILS # (AUTO) 0.1 (0.0-0.1); BASOPHILS % 0.8 % (0.0-1.0); EOSINOPHILS # (AUTO) 0.2 (0.0-0.4); EOSINOPHILS % 2.1 % (0.0-6.0); HEMATOCRIT 30.8 % (34.2-44.1); HEMOGLOBIN 9.5 g/dL (12.0-16.0); LYMPHOCYTES # (AUTO) 5.2 (1.0-3.2); LYMPHOCYTES % 49.6 % (18.0-39.1); MEAN CORPUSCULAR HEMOGLOBIN 29.2 pg (28-32); MEAN CORPUSCULAR HGB CONC 30.8 g/dL (31-35); MEAN CORPUSCULAR VOLUME 94.8 fL (81-99); MONOCYTES # (AUTO) 0.7 (0.2-0.8); MONOCYTES % 6.4 % (4.4-11.3); NEUTROPHILS # (AUTO) 4.2 (2.1-6.9); NEUTROPHILS % 40.4 % (38.7-80.0); PLATELET COUNT 118 x10e3/uL (140-360); RED BLOOD COUNT 3.25 x10e6/uL (3.6-5.1); RED CELL DISTRIBUTION WIDTH 16.9 % (11.7-14.4)
[2018-12-30 16:37] LABS: ANION GAP 14.5 mmol/L (8-16); CREATININE, SERUM 1.15 mg/dL (0.57-1.11); POTASSIUM 4.5 mmol/L (3.5-5.1)
--- NOTE | 2018-12-30 18:27 | NUR ---
Dr. Ring notified regarding creatinine level of 1.15 as request by physician.
--- NOTE | 2018-12-30 19:10 | NUR ---
BS rounds completed with morning nurse. Pt alert to name and sleepy. Sitting in high Temple's position. Denies pain at this time. Call todd within reach. Bed low and locked. Family at bedside. Will continue to monitor.
[2018-12-30] MEDS: ATORVASTATIN 40 MG TAB PO SCH (21:00)
--- NOTE | 2018-12-30 21:48 | Diagnostic Imaging Report ---
EXAM: ABDOMEN-1VIEW (KUB), DATE: 12/30/2018 2:53 PM INDICATION: Bacteremia. Infection. Nausea. Vomiting. COMPARISON: 12/24/2018. FINDINGS: LINES/TUBES: None BOWEL PATTERN: No evidence for obstruction. Paucity of a small bowel gas. Moderate volume of stool within the colon and rectum. SOFT TISSUES: No abnormal calcifications. No mass effect. LUNG BASES: Not included BONES: No acute findings. IMPRESSION: Nonobstructive bowel gas pattern. Possible constipation. Signed by: Dr. Jimmy Aleman M.D. on 12/30/2018 9:45 PM
[2018-12-31] VITALS (8 sets, daily range): BP systolic 145–180; BP diastolic 64–79
[2018-12-31] MEDS: AMPICILLIN SOD/SULBACTAM 3GM 100 ML IV SCH ×3 (04:22→20:50)
[2018-12-31] MEDS: LACTATED RINGER'S 1,000 ML IV SCH ×2 (04:22→18:35)
[2018-12-31] MEDS: TRAMADOL HCL 50 MG TAB PO PRN (04:29)
[2018-12-31] MEDS: HYDRALAZINE HCL 100 MG TABLET PO SCH ×3 (05:12→21:09)
[2018-12-31 06:15] LABS: BASOPHILS # (AUTO) 0.1 (0.0-0.1); BASOPHILS % 0.6 % (0.0-1.0); EOSINOPHILS # (AUTO) 0.2 (0.0-0.4); HEMATOCRIT 31.3 % (34.2-44.1); HEMOGLOBIN 9.9 g/dL (12.0-16.0); LYMPHOCYTES # (AUTO) 6.3 (1.0-3.2); LYMPHOCYTES % 54.1 % (18.0-39.1); MEAN CORPUSCULAR HEMOGLOBIN 29.6 pg (28-32); MEAN CORPUSCULAR HGB CONC 31.6 g/dL (31-35); MEAN CORPUSCULAR VOLUME 93.4 fL (81-99); MONOCYTES # (AUTO) 0.7 (0.2-0.8); MONOCYTES % 5.8 % (4.4-11.3); NEUTROPHILS # (AUTO) 4.3 (2.1-6.9); NEUTROPHILS % 36.7 % (38.7-80.0); PLATELET COUNT 157 x10e3/uL (140-360); RED BLOOD COUNT 3.35 x10e6/uL (3.6-5.1)
[2018-12-31 06:42] LABS: ANION GAP 14.2 mmol/L (8-16); CALCIUM 8.6 mg/dL (8.4-10.2); CREATININE, SERUM 1.17 mg/dL (0.57-1.11); MAGNESIUM 1.5 MG/DL (1.3-2.1); POTASSIUM 4.2 mmol/L (3.5-5.1)
[2018-12-31] MEDS: INSULIN LISPRO 100 UNIT/1 ML 3ML VIAL SQ SCH ×4 (07:30→21:00)
[2018-12-31] MEDS: BALSAM PERU/CASTOR OIL 60 GM OINT...G. TP SCH ×2 (08:00→21:09)
[2018-12-31] MEDS: BACLOFEN 10 MG TAB PO SCH ×4 (08:51→21:00)
[2018-12-31] MEDS: CYANOCOBALAMIN 1,000 MCG TAB PO SCH (08:51)
[2018-12-31] MEDS: LACTOBACILLUS ACIDOPHILUS CAPSULE PO SCH ×2 (08:51→17:00)
[2018-12-31] MEDS: SODIUM BICARBONATE 650 MG TAB PO SCH (08:51)
[2018-12-31] MEDS: CARVEDILOL 12.5 MG TAB PO SCH ×2 (08:51→17:00)
[2018-12-31] MEDS: CLOPIDOGREL BISULFATE 75 MG TAB PO SCH (08:51)
[2018-12-31] MEDS: LEVETIRACETAM 500 MG TAB PO SCH ×2 (08:51→17:00)
[2018-12-31] MEDS: FERROUS GLUCONATE 324 MG PO SCH ×2 (09:00→17:00)
[2018-12-31] MEDS: NIFEDIPINE CR 30 MG TAB PO SCH ×2 (09:03→17:00)
[2018-12-31] MEDS ORDERED: MAGNESIUM SULF 1GRAM/DEXTROSE 100 ML IV ONE (12:00)
[2018-12-31] MEDS ORDERED: BISACODYL 10 MG SUPP PR NR (12:00)
[2018-12-31] MEDS: HYDRALAZINE HCL 20 MG/ML VIAL IV PRN ×2 (12:12→16:52)
--- NOTE | 2018-12-31 12:43 | NUR ---
PATIENT OFF THE UNIT PER BED TO RADIOLOGY. PATIENT IS IN STABLE CONDITION WITH NO S/S OF RESPIRATORY DISTRESS.
--- NOTE | 2018-12-31 13:14 | Diagnostic Imaging Report ---
History:Rule out acute stroke Comparison studies:None Technique: Axial images were obtained from the skull base to the vertex. Coronal and sagittal images reconstructed from the axial data. Intravenous contrast: None Dose modulation, iterative reconstruction, and/or weight based adjustment of the mA/kV was utilized to reduce the radiation dose to as low as reasonably achievable. Findings: Scalp/skull: No abnormalities. Extra-axial spaces: No masses. No fluid collections. Brain sulci: Mildly prominent. Ventricles: Mild compensatory dilatation. Exvacuodilatation of the left lateral ventricle. No hydrocephalus. Parenchyma: Left striatocapsular chronic lacunar infarct. Small chronic infarct at the left posterior cerebellum Scattered small hypodensities in the supratentorial white matter are small vessel ischemic changes. No masses, hemorrhage, acute or chronic cortical vascular insults. Sellar/suprasellar region: No abnormalities. Craniocervical junction: Patent foramen magnum. No Chiari one malformation. Incidental findings: Atherosclerotic calcifications in the carotid siphons and vertebral arteries . Impression: No acute abnormalities. Chronic findings: 1. Mild generalized volume loss. 2. Mild supratentorial white matter small vessel ischemic changes. 3. Left cerebellar and left striatocapsular chronic infarct. Signed by: DR Jf Maria M.D. on 12/31/2018 1:11 PM
--- NOTE | 2018-12-31 14:34 | Diagnostic Imaging Report ---
EXAM: CHEST SINGLE (PORTABLE), AP Portable DATE: 12/31/2018 Time stamp on exam: 12:59 PM INDICATION: Bacteremia, wheezing and sepsis COMPARISON: 12/29/2018 FINDINGS: LINES/TUBES: None LUNGS: Diffuse pulmonary edema now present. PLEURA: No effusions or pneumothorax. HEART AND MEDIASTINUM: Heart is enlarged. BONES AND SOFT TISSUES: No acute findings. IMPRESSION: Cardiomegaly with diffuse pulmonary edema. Signed by: Dr. Mc Hamilton DO on 12/31/2018 2:30 PM
[2018-12-31] MEDS: MORPHINE SULFATE INJ 4 MG/ML INJ 1ML IV PRN (18:36)
--- NOTE | 2018-12-31 18:40 | NUR ---
PATIENT IS IN STABLE CONDITION WITH NO S/S OF RESPIRATORY DISTRESS. PATIENT RECENTLY GIVEN IV MORPHINE PAIN MEDICATION. IV FLUIDS INFUSING. PUREWICK INTACT/DIAPER APPLIED. BED ALARM ON. DAUGHTER PRESENT IN ROOM. CALL LIGHT IS WITHIN REACH, PATIENT INSTRUCTED TO CALL FOR ASSISTANCE NEEDED. BEDSIDE REPORT GIVEN TO ONCOMING NURSE.
--- NOTE | 2018-12-31 19:48 | NUR ---
PT IS RESTING IN BED WITH HER DAUGHTER AT BEDSIDE. NO RESPIRATORY DISTRESS NOTED. BED IN THE LOWEST POSITION, LOCKED, BED ALARM ON, AND CALL LIGHT WITHIN REACH. WILL CONTINUE TO MONITOR.
[2018-12-31] MEDS: ATORVASTATIN 40 MG TAB PO SCH (21:00)
--- NOTE | 2018-12-31 21:48 | Consultation ---
DATE OF CONSULTATION: Pulmonary Critical Care Consultation. CHIEF COMPLAINT: Noisy breathing and cough. HISTORY OF PRESENT ILLNESS: The patient is a 68-year-old woman. She had a long hospitalization at [facility] about a month ago. She initially came in with a history of prior strokes and some noisy breathing. The initial chest x-ray and CT scan of the chest were negative. She underwent a subsequent bronchoscopy that was negative. She also had a subsequent swallowing evaluation. Her hospitalization was complicated by profound obtundation and mental status changes. She also had acute kidney injury and worsening kidney function. She was seen in consultation by Neurology as well as Nephrology. She received some IV fluids as well as a CT scan and MRI of her brain that showed some strokes of unclear timing. She eventually improved and was sent to a nursing facility. At the nursing facility, she developed some recurrent cough as well as some vomiting. Her blood cultures showed Acinetobacter and she was sent to the ER. PAST SURGICAL HISTORY: . PAST MEDICAL HISTORY: 1. Non-Hodgkin's lymphoma that is currently being evaluated and treated in [place]. 2. Prior cerebrovascular accidents of varying times. 3. Hypertension. 4. Diabetes mellitus. 5. Possible aspiration pneumonitis. FAMILY HISTORY: Family history is consistent for hypertension. SOCIAL HISTORY: The patient is not an active smoker or drinker. She stays at a nursing facility. ALLERGIES: THE PATIENT IS ALLERGIC TO SULFA. PHYSICAL EXAMINATION: VITAL SIGNS: The patient is afebrile. The blood pressure is 180/79 and the saturation is 94%. The pulse is 57 and the respiratory rate is 18. Temperature is 96.5. HEENT: Shows no facial swelling or erythema. The oropharynx is normal. LYMPHATIC: Shows no submandibular, cervical, or supraclavicular adenopathy. CARDIAC: Reveals regular rate and rhythm with normal S1 and S2. There are no murmurs or rubs. CHEST: Auscultation of lungs shows rhonchorous breath sounds bilaterally. There is no wheezing. ABDOMEN: Soft, nontender. There is no rebound or guarding. EXTREMITIES: Show no leg edema or calf tenderness. There is no cyanosis or clubbing. SKIN: Shows no rashes. NEUROLOGIC: Shows some hemiparesis that is chronic. RADIOGRAPHIC DATA: Chest x-ray from the 16 shows an enlarged cardiac silhouette throughout his lung tellez. A CT scan of the brain shows left cerebellar and left striatocapsular infarct that appears old. LABORATORY DATA: The white blood cell count is 11.6 and hemoglobin is 9.9. The platelet count is 157. The BUN to creatinine ratio is 24 to 1.17 and the other electrolytes are within normal limits. Urinalysis is normal. IMPRESSION: 1. Acinetobacter bacteremia with associated sepsis present on admission. 2. Anemia secondary to chronic blood loss, requiring blood transfusion. 3. Chronic bronchitis. 4. Pancytopenia. 5. Non-Hodgkin's lymphoma. 6. Hypertension. PLAN: 1. The patient will continue on the current antibiotics. 2. We are awaiting the final culture results. 3. Swallowing evaluation is pending. 4. Repeat chest x-ray tomorrow. 5. Continue to monitor blood counts. Mango Davis MD [facility]/MODL /[id number]
[2019-01-01] VITALS (9 sets, daily range): BP systolic 109–183; BP diastolic 59–81
[2019-01-01] MEDS: HYDRALAZINE HCL 20 MG/ML VIAL IV PRN ×3 (01:22→11:51)
[2019-01-01] MEDS: MORPHINE SULFATE INJ 4 MG/ML INJ 1ML IV PRN (01:22)
[2019-01-01] MEDS: AMPICILLIN SOD/SULBACTAM 3GM 100 ML IV SCH ×3 (04:04→21:40)
[2019-01-01] MEDS: LACTATED RINGER'S 1,000 ML IV SCH ×2 (04:49→10:30)
[2019-01-01] MEDS: HYDRALAZINE HCL 100 MG TABLET PO SCH ×3 (05:23→21:44)
[2019-01-01 06:14] LABS: BASOPHILS # (AUTO) 0.1 (0.0-0.1); BASOPHILS % 0.8 % (0.0-1.0); EOSINOPHILS # (AUTO) 0.1 (0.0-0.4); EOSINOPHILS % 1.2 % (0.0-6.0); HEMATOCRIT 30.8 % (34.2-44.1); HEMOGLOBIN 9.6 g/dL (12.0-16.0); LYMPHOCYTES # (AUTO) 5.3 (1.0-3.2); LYMPHOCYTES % 47.4 % (18.0-39.1); MEAN CORPUSCULAR HEMOGLOBIN 29.4 pg (28-32); MEAN CORPUSCULAR HGB CONC 31.2 g/dL (31-35); MEAN CORPUSCULAR VOLUME 94.2 fL (81-99); MONOCYTES # (AUTO) 0.9 (0.2-0.8); MONOCYTES % 7.9 % (4.4-11.3); NEUTROPHILS # (AUTO) 4.6 (2.1-6.9); NEUTROPHILS % 41.2 % (38.7-80.0); PLATELET COUNT 156 x10e3/uL (140-360); RED BLOOD COUNT 3.27 x10e6/uL (3.6-5.1); RED CELL DISTRIBUTION WIDTH 16.7 % (11.7-14.4)
--- NOTE | 2019-01-01 06:31 | Diagnostic Imaging Report ---
Examination: Single AP view of the chest. COMPARISON: Portable chest 12/31/2018 INDICATION: Bacteremia/infection/chronic bronchitis IMPRESSION: 1. Lines and Tubes: None 2. Interval improvement in bilateral interstitial pulmonary edema. No consolidation or pleural effusion. 3. Stable enlargement of the cardiac silhouette . Improved central venous congestion. 4. No acute bony abnormalities. Signed by: Dr. Syd Cooney M.D. on 01/01/2019 6:27 AM
[2019-01-01 06:34] LABS: ANION GAP 16.4 mmol/L (8-16); CALCIUM 8.8 mg/dL (8.4-10.2); CREATININE, SERUM 1.01 mg/dL (0.57-1.11); POTASSIUM 4.4 mmol/L (3.5-5.1)
[2019-01-01] MEDS: INSULIN LISPRO 100 UNIT/1 ML 3ML VIAL SQ SCH ×4 (07:30→21:00)
[2019-01-01 08:12] LABS: BAND NEUTROPHILS % (MANUAL) 1 %; EOSINOPHILS % (MANUAL) 1 % (0-7); LYMPHOCYTES % (MANUAL) 25 % (19-48); MONOCYTES % (MANUAL) 8 % (3.4-9.0); NEUTROPHILS % (MANUAL) 47 % (40-74)
--- NOTE | 2019-01-01 08:13 | NUR ---
Referral by RN. Pt sleeping soundly and no family present. Inventory Accountant left a card describing availability of auto parts salesperson and instructions on how to contact a auto parts salesperson. Will follow up as able. STEPHANIE VILLALOBOS Inventory Accountant Spiritual Care Department O: [phone] Pager: [phone] ([phone] number calling from)
[2019-01-01 08:14] LABS: PLATELET ESTIMATE ADEQUATE; PLATELET MORPHOLOGY COMMENT NORMAL; RBC MORPHOLOGY COMMENT NORMAL
[2019-01-01] MEDS: CARVEDILOL 12.5 MG TAB PO SCH ×2 (08:33→16:33)
[2019-01-01] MEDS: BACLOFEN 10 MG TAB PO SCH ×4 (08:34→21:40)
[2019-01-01] MEDS: CLOPIDOGREL BISULFATE 75 MG TAB PO SCH (08:34)
[2019-01-01] MEDS: FERROUS GLUCONATE 324 MG PO SCH ×2 (08:34→16:06)
[2019-01-01] MEDS: LACTOBACILLUS ACIDOPHILUS CAPSULE PO SCH ×2 (08:34→16:33)
[2019-01-01] MEDS: NIFEDIPINE CR 30 MG TAB PO SCH ×2 (08:34→16:34)
[2019-01-01] MEDS: SODIUM BICARBONATE 650 MG TAB PO SCH (08:34)
[2019-01-01] MEDS: LEVETIRACETAM 500 MG TAB PO SCH ×2 (08:34→16:33)
[2019-01-01] MEDS: CYANOCOBALAMIN 1,000 MCG TAB PO SCH (08:35)
[2019-01-01] MEDS: BALSAM PERU/CASTOR OIL 60 GM OINT...G. TP SCH ×2 (08:35→21:44)
[2019-01-01] MEDS: ALBUTEROL/IPRATROPIUM 3 ML NEB NEB PRN (11:20)
--- NOTE | 2019-01-01 15:35 | NUR ---
SPOKE WITH DR. WICK AND DR. MAURICE REGARDING SNF EVAL AND ABX ORDERS. NEW ORDERS RECEIVED.
--- NOTE | 2019-01-01 18:28 | NUR ---
RECEIVED A MESSAGE FROM EMILY AT [facility]- PATIENT HAS A ROOM (123A) AVAILABLE
--- NOTE | 2019-01-01 19:19 | NUR ---
PATIENT IS RESTING IN BED- IN STABLE CONDITION WITH NO S/S OF RESPIRATORY DISTRESS. NO PAIN VOICED. IV FLUIDS INFUSING. DIAPER APPLIED. FAMILY MEMBERS PRESENT IN ROOM. BED ALARM ON. CALL LIGHT IS WITHIN REACH, PATIENT INSTRUCTED TO CALL FOR ASSISTANCE NEEDED. BEDSIDE REPORT GIVEN TO ONCOMING NURSE.
[2019-01-01] MEDS: ATORVASTATIN 40 MG TAB PO SCH (21:43)
--- NOTE | 2019-01-01 22:24 | Diagnostic Imaging Report ---
EXAM: Modified barium swallow INDICATION: Bacteremia, infection, dysphagia COMPARISON: None FINDINGS: This examination was conducted in conjunction with speech pathologist. Patient was given, by mouth, liquids and solids of various consistencies. Examination shows timely swallow initiation, without premature spillage to the vallecula or piriform sinuses. No aspiration or penetration was noted. Trace to minimal base of tongue residue was seen. Fluoro time: 1:54 minutes IMPRESSION: <No evidence of penetration or aspiration. Please see speech pathology report for detailed description and recommendations.> Signed by: Dr. Syd Cooney M.D. on 01/01/2019 10:20 PM
[2019-01-02] VITALS (7 sets, daily range): BP systolic 102–145; BP diastolic 53–63
[2019-01-02] MEDS: LACTATED RINGER'S 1,000 ML IV SCH (04:10)
[2019-01-02] MEDS: AMPICILLIN SOD/SULBACTAM 3GM 100 ML IV SCH ×3 (04:10→20:00)
[2019-01-02] MEDS: HYDRALAZINE HCL 100 MG TABLET PO SCH ×3 (05:04→22:00)
[2019-01-02 05:56] LABS: HEMATOCRIT 24.9 % (34.2-44.1); HEMOGLOBIN 7.9 g/dL (12.0-16.0); MEAN CORPUSCULAR HEMOGLOBIN 29.7 pg (28-32); MEAN CORPUSCULAR HGB CONC 31.7 g/dL (31-35); MEAN CORPUSCULAR VOLUME 93.6 fL (81-99); RED BLOOD COUNT 2.66 x10e6/uL (3.6-5.1)
[2019-01-02 05:57] LABS: BASOPHILS # (AUTO) 0.1 (0.0-0.1); BASOPHILS % 0.4 % (0.0-1.0); EOSINOPHILS # (AUTO) 0.2 (0.0-0.4); EOSINOPHILS % 1.6 % (0.0-6.0); LYMPHOCYTES # (AUTO) 7.2 (1.0-3.2); LYMPHOCYTES % 63.2 % (18.0-39.1); MONOCYTES # (AUTO) 0.9 (0.2-0.8); MONOCYTES % 7.6 % (4.4-11.3); NEUTROPHILS % 26.5 % (38.7-80.0); PLATELET COUNT 132 x10e3/uL (140-360); RED CELL DISTRIBUTION WIDTH 16.9 % (11.7-14.4)
[2019-01-02 06:41] LABS: ANION GAP 11.7 mmol/L (8-16); CALCIUM 8.1 mg/dL (8.4-10.2); CREATININE, SERUM 0.98 mg/dL (0.57-1.11); POTASSIUM 3.7 mmol/L (3.5-5.1)
[2019-01-02] MEDS: INSULIN LISPRO 100 UNIT/1 ML 3ML VIAL SQ SCH ×4 (07:30→20:33)
[2019-01-02] MEDS: ALBUTEROL/IPRATROPIUM 3 ML NEB NEB PRN ×3 (07:31→21:20)
[2019-01-02 07:41] LABS: EOSINOPHILS % (MANUAL) 2 % (0-7); LYMPHOCYTES % (MANUAL) 62 % (19-48); MONOCYTES % (MANUAL) 6 % (3.4-9.0); NEUTROPHILS % (MANUAL) 30 % (40-74)
[2019-01-02 07:42] LABS: ANISOCYTOSIS SLIGHT; PLATELET ESTIMATE SLIGHTLY DECREASED; PLATELET MORPHOLOGY COMMENT NORMAL; RBC MORPHOLOGY COMMENT NORMAL; SMUDGE CELLS FEW
[2019-01-02] MEDS: CARVEDILOL 12.5 MG TAB PO SCH ×2 (08:25→17:08)
[2019-01-02] MEDS: LEVETIRACETAM 500 MG TAB PO SCH ×2 (08:25→17:08)
[2019-01-02] MEDS: BACLOFEN 10 MG TAB PO SCH ×4 (08:25→20:32)
[2019-01-02] MEDS: LACTOBACILLUS ACIDOPHILUS CAPSULE PO SCH ×2 (08:26→17:09)
[2019-01-02] MEDS: CYANOCOBALAMIN 1,000 MCG TAB PO SCH (08:26)
[2019-01-02] MEDS: CLOPIDOGREL BISULFATE 75 MG TAB PO SCH (08:26)
[2019-01-02] MEDS: NIFEDIPINE CR 30 MG TAB PO SCH ×2 (08:26→17:09)
[2019-01-02] MEDS: BALSAM PERU/CASTOR OIL 60 GM OINT...G. TP SCH ×2 (08:26→20:33)
[2019-01-02] MEDS: SODIUM BICARBONATE 650 MG TAB PO SCH (08:31)
--- NOTE | 2019-01-02 10:07 | NUR ---
ASSESSMENT: No spiritual concerns expressed Pt states her daughter, her only child, is supportive during hospitalization. Intervention: Provided hospitality and supportive listening. Facilitated identification of resources. Provided information on how to reach fiber optic assembler, if needed. Outcome: Pt expressed appreciation for visit. STEPHANIE VILLALOBOS Broker Assistant Spiritual Care Department O: [phone] Pager: [phone] ([phone] number calling from)
--- NOTE | 2019-01-02 13:08 | NUR ---
CM REC'D ORDER YESTERDAY FOR SNF EVAL FOR UNASYN IV Q 8 HRS X [address] WICK'S PROGRESS NOTE TODAY PT ONLY NEEDS UNASYN X 5 MORE DAYS (LAST DOSE MONDAY) CM CALLED AND VERIFIED WITH DR WICK THAT PT ONLY NEEDS 5 MORE DAYS OF IV UNASYN ORDER FOR SNF WITH 14 DAYS OF IV UNASYN CANCELLED EXPLAINED TO DR WICK THAT [facility] WILL NOT AUTH SNF FOR ONLY 3 DAYS OF IV ABX PT WILL NEED TO STAY HERE TO COMPLETE COURSE OF IV ABX THEN RETURN TO [facility] UNDER LONG-TERM CARE PT NOT STABLE FOR TRANSFER TODAY PER DR WICK HGB IS LOW REPEAT LABS IN AM
--- NOTE | 2019-01-02 15:19 | Progress Note ---
DATE: 01/02/2019 Pulmonary Critical Care Progress Note SUBJECTIVE: The patient has some noisy breathing and rhonchi. Her symptoms are improved with breathing treatments. PHYSICAL EXAMINATION: VITAL SIGNS: The patient is afebrile. The blood pressure is 123/58 and the pulse is 73. The saturation is 96%. HEENT: Shows no facial swelling or erythema. The oropharynx is normal. LYMPHATIC: Shows no submandibular, cervical, or supraclavicular adenopathy. CARDIAC: Reveals a regular rate and rhythm with a normal S1 and S2. LUNGS: Auscultation of lungs reveals rhonchorous breath sounds bilaterally. There is no wheezing. ABDOMEN: Soft and nontender. EXTREMITIES: There is no leg edema or calf tenderness. LABORATORY DATA: White blood cell count is 11.4 and hemoglobin is 7.9. The platelet count is 132. The BUN to creatinine ratio is 14:0.98. The other electrolytes are within normal limits. IMPRESSION: 1. Chronic bronchitis. 2. Acinetobacter bacteremia with associated sepsis present on admission. 3. Anemia secondary to chronic blood loss. 4. Pancytopenia. 5. Non-Hodgkin's lymphoma. 6. Hypertension. PLAN: 1. Continue bronchodilators as needed. 2. Continue current antibiotics. 3. Continue to monitor blood counts. 4. Await further recommendations from Hematology-Oncology. Mango Davis MD [facility]/MODL /[id number]
[2019-01-02] MEDS: FERROUS SULFATE 325 MG TAB PO SCH (17:08)
--- NOTE | 2019-01-02 19:15 | NUR ---
Received change of shift report from AM nurse. Rounds completed.
[2019-01-02] MEDS: ATORVASTATIN 40 MG TAB PO SCH (20:33)
--- NOTE | 2019-01-02 21:30 | NUR ---
Patient c/o IV pain. D/C IV and apply pressure dressing. Restarted IV to left thumb 20G. Patient tolerated well.
[2019-01-03 00:15] VITALS: BP 130/58
[2019-01-03] MEDS: AMPICILLIN SOD/SULBACTAM 3GM 100 ML IV SCH ×3 (04:00→20:00)
--- NOTE | 2019-01-03 05:03 | NUR ---
Patient resting quitly at this time. Continue monitor.
[2019-01-03] MEDS: HYDRALAZINE HCL 100 MG TABLET PO SCH ×3 (05:49→21:44)
[2019-01-03 06:19] LABS: BASOPHILS % 0.3 % (0.0-1.0); EOSINOPHILS # (AUTO) 0.2 (0.0-0.4); EOSINOPHILS % 1.8 % (0.0-6.0); HEMATOCRIT 24.1 % (34.2-44.1); HEMOGLOBIN 7.7 g/dL (12.0-16.0); LYMPHOCYTES # (AUTO) 6.9 (1.0-3.2); MEAN CORPUSCULAR HEMOGLOBIN 30.1 pg (28-32); MEAN CORPUSCULAR VOLUME 94.1 fL (81-99); MONOCYTES # (AUTO) 0.7 (0.2-0.8); MONOCYTES % 6.8 % (4.4-11.3); NEUTROPHILS # (AUTO) 2.9 (2.1-6.9); NEUTROPHILS % 26.7 % (38.7-80.0); PLATELET COUNT 129 x10e3/uL (140-360); RED BLOOD COUNT 2.56 x10e6/uL (3.6-5.1); RED CELL DISTRIBUTION WIDTH 16.5 % (11.7-14.4)
[2019-01-03 06:39] LABS: CALCIUM 7.8 mg/dL (8.4-10.2); CREATININE, SERUM 1.02 mg/dL (0.57-1.11)
[2019-01-03] MEDS: ALBUTEROL/IPRATROPIUM 3 ML NEB NEB PRN (07:00)
[2019-01-03] MEDS: INSULIN LISPRO 100 UNIT/1 ML 3ML VIAL SQ SCH ×4 (07:30→21:00)
[2019-01-03 08:00] VITALS: BP 141/85
[2019-01-03 08:10] VITALS: BP 141/85
[2019-01-03] MEDS: SODIUM BICARBONATE 650 MG TAB PO SCH (09:00)
[2019-01-03] MEDS: BACLOFEN 10 MG TAB PO SCH ×4 (09:45→21:00)
[2019-01-03] MEDS: LEVETIRACETAM 500 MG TAB PO SCH ×2 (09:45→17:36)
[2019-01-03] MEDS: CARVEDILOL 12.5 MG TAB PO SCH ×2 (09:45→17:36)
[2019-01-03] MEDS: FERROUS SULFATE 325 MG TAB PO SCH ×2 (09:45→17:36)
[2019-01-03] MEDS: NIFEDIPINE CR 30 MG TAB PO SCH ×2 (09:46→17:37)
[2019-01-03] MEDS: LACTOBACILLUS ACIDOPHILUS CAPSULE PO SCH ×2 (09:46→17:37)
[2019-01-03] MEDS: CLOPIDOGREL BISULFATE 75 MG TAB PO SCH (09:46)
[2019-01-03] MEDS: BALSAM PERU/CASTOR OIL 60 GM OINT...G. TP SCH ×2 (09:46→21:00)
[2019-01-03] MEDS: CYANOCOBALAMIN 1,000 MCG TAB PO SCH (09:46)
[2019-01-03] MEDS: MAGNESIUM HYDROXIDE 30 ML UDC PO PRN (09:56)
[2019-01-03] MEDS ORDERED: LACTULOSE SYRUP 20 GM/30 ML UDC PO PRN (11:00)
[2019-01-03 12:04] VITALS: BP 160/72
--- NOTE | 2019-01-03 12:04 | Diagnostic Imaging Report ---
Examination: Single AP view of the chest. COMPARISON: 01/01/2019 INDICATION: Shortness of breath, infection DISCUSSION: Lung volumes remain low. No new consolidation or pleural effusion. Stable enlargement of the cardiac silhouette and pulmonary venous congestion relative to 01/01/2019. No acute osseous abnormality. Enteric contrast material projects over the upper abdomen related to modified barium swallow performed 01/01/2019. IMPRESSION: Stable chest relative to 01/01/2019. Persistent low lung volumes, cardiomegaly, and pulmonary venous congestion. Signed by: Dr. Ephraim Duncan M.D. on 01/03/2019 12:00 PM
[2019-01-03 12:56] LABS: LYMPHOCYTES % (MANUAL) 48 % (19-48); MONOCYTES % (MANUAL) 9 % (3.4-9.0); NEUTROPHILS % (MANUAL) 42 % (40-74)
[2019-01-03 13:02] LABS: HYPOCHROMASIA SLIGHT; PLATELET ESTIMATE SLIGHTLY DECREASED; PLATELET MORPHOLOGY COMMENT NORMAL; RBC MORPHOLOGY COMMENT NORMAL
--- NOTE | 2019-01-03 15:37 | NUR ---
Nutrition Screen Note RD Recommendation for Physician: continue diet as ordered Plan of Care: RD following, monitoring for adequacy and tolerance Nutrition reason for involvement: Follow up Primary Diagnose(s): 1. Chronic bronchitis. 2. Acinetobacter bacteremia with associated sepsis present on admission. 3. Anemia secondary to chronic blood loss. Ht:57 in Wt:115lbs BMI:24.9 kg/m2 IBW:85lbs RD Assessment: (01/03/2019)Pt reported good appetite with 75-100% PO intake. Pt denied any nausea or vomiting. Milk of magnesia was given today; no BM yet. Will continue to monitor and follow. Food allergies have been entered into [employer]. (12/29/2018) Initial encounter with patient. Diet Hx: Pt states that she is allergic to milk, mayonnaise and ranch dressing and she gets hives. Pt denies any difficulty chewing or swallowing nor has any nausea or vomiting. Current Diet: 1800 ADA Malnutrition Evaluation (12/29/2018) The patient does not meet criteria for a specified degree of malnutrition at this time. Will re-evaluate at follow-up as appropriate. Diet Education Needs Assessment: Diet education not indicated. Diet Adequacy: Meeting calorie needs, Meeting protein needs, Meeting fluid needs Tolerance: Tolerating PO Nutrition Care Level: Low Ashlie Rosario, MS, RD, LD
[2019-01-03 16:23] VITALS: BP 153/70
--- NOTE | 2019-01-03 19:48 | Progress Note ---
DATE: SUBJECTIVE: Ms. Bah has continued to do well. There is really no complaint. REVIEW OF SYSTEMS: HEENT: Negative. PULMONARY: Negative. CARDIAC: Negative. PHYSICAL EXAMINATION: GENERAL: She is currently alert and oriented, does not seem to be in acute distress. VITAL SIGNS: Stable, currently afebrile. HEENT: She is not icteric. NECK: Supple. CHEST: Clear. HEART: S1, S2. No S3, S4, or murmur. ABDOMEN: Soft. Bowel sounds present. EXTREMITIES: No edema. SKIN: No rash. LABORATORY DATA: Her lab reviewed. Her hemoglobin was 7.7. Creatinine 1.02. IMPRESSION AND PLAN: 1. Sepsis with bacteremia secondary to line, which was removed. Continue Unasyn for 14 days, four more days to go. 2. Dysphagia. 3. Hypertension. 4. Anemia. Internal Medicine is following. 5. History of non-Hodgkin lymphoma. 6. History of chronic kidney disease. 7. History of diabetes mellitus. 8. We will follow. MD BRYANT Armando/MODL /[id number]
--- NOTE | 2019-01-03 19:49 | NUR ---
Received change of shift report from AM nurse. Rounds completed.
[2019-01-03 20:00] VITALS: BP 147/66
[2019-01-03] MEDS: ATORVASTATIN 40 MG TAB PO SCH (21:00)
[2019-01-04] VITALS (7 sets, daily range): BP systolic 129–145; BP diastolic 61–72
[2019-01-04] MEDS: AMPICILLIN SOD/SULBACTAM 3GM 100 ML IV SCH ×3 (05:00→20:38)
[2019-01-04] MEDS: HYDRALAZINE HCL 100 MG TABLET PO SCH ×3 (05:35→21:44)
--- NOTE | 2019-01-04 07:21 | NUR ---
PATIENT IN BED RESTING WITH EYES CLOSED, NO RESPIRATORY DISTRESS OBSERVED. HEEL PROTECTOR IN PLACE. BED IN LOWER POSITION, CALL LIGHT AT REACH.
[2019-01-04] MEDS: INSULIN LISPRO 100 UNIT/1 ML 3ML VIAL SQ SCH ×4 (07:30→20:39)
[2019-01-04] MEDS: BALSAM PERU/CASTOR OIL 60 GM OINT...G. TP SCH ×2 (09:27→20:54)
[2019-01-04] MEDS: CYANOCOBALAMIN 1,000 MCG TAB PO SCH (09:27)
[2019-01-04] MEDS: BACLOFEN 10 MG TAB PO SCH ×4 (09:28→20:39)
[2019-01-04] MEDS: FERROUS SULFATE 325 MG TAB PO SCH ×2 (09:28→17:45)
[2019-01-04] MEDS: NIFEDIPINE CR 30 MG TAB PO SCH ×2 (09:28→17:45)
[2019-01-04] MEDS: SODIUM BICARBONATE 650 MG TAB PO SCH (09:28)
[2019-01-04] MEDS: LACTOBACILLUS ACIDOPHILUS CAPSULE PO SCH ×2 (09:28→17:45)
[2019-01-04] MEDS: LEVETIRACETAM 500 MG TAB PO SCH ×2 (09:28→17:45)
[2019-01-04] MEDS: CLOPIDOGREL BISULFATE 75 MG TAB PO SCH (09:28)
[2019-01-04] MEDS: CARVEDILOL 12.5 MG TAB PO SCH ×2 (09:28→17:45)
[2019-01-04] MEDS ORDERED: MINERAL OIL 132 ML BTL PR NR (10:30)
--- NOTE | 2019-01-04 10:50 | NUR ---
EDUCATED ABOUT IMM, SIGNED, FILED IN CHART, WITH COPY LEFT WITH FAMILY AT BEDSIDE.
[2019-01-04] MEDS: ALBUTEROL/IPRATROPIUM 3 ML NEB NEB PRN (11:06)
--- NOTE | 2019-01-04 11:23 | NUR ---
PATIENT C/O CONSTIPATION. MD NOTIFIED, NEW ORDER RECEIVED AND IMPLEMENTED. PATIENT HAD A LARGE FORMED STOOL. REPOSITIONED IN BED BY 2 STAFFS, CALL LIGHT AT REACH.
--- NOTE | 2019-01-04 14:47 | Diagnostic Imaging Report ---
Exam: KUB-one view Clinical History: Constipation Comparison: None. Findings: The right hemiabdomen is partially excluded from the [id number]. Study is also limited by portable technique. There is contrast throughout the colon, which limits evaluation for amount of stool. No evidence of bowel dilatation. Nonobstructive bowel gas pattern. Scattered colonic diverticulosis, most pronounced in the sigmoid colon. No acute osseous abnormality. Impression: Limited study. Contrast in the colon without evidence of bowel obstruction. Signed by: Dr. Matt Vasquez MD on 01/04/2019 2:44 PM
[2019-01-04] MEDS: FAMOTIDINE 20 MG TAB PO SCH (16:30)
--- NOTE | 2019-01-04 18:29 | Progress Note ---
DATE: Pulmonary Critical Care Progress Note SUBJECTIVE: The patient has no new complaints. She is resting comfortably. PHYSICAL EXAMINATION: VITAL SIGNS: The patient is afebrile. The saturation is 94% on 2 L. HEENT: Shows no facial swelling or erythema. Nasal mucosa is normal. LYMPHATIC: Shows no submandibular, cervical, or supraclavicular adenopathy. CARDIAC: Reveals regular rate and rhythm with normal S1 and S2. There are no murmurs or rubs. LUNGS: Auscultation of lungs reveals rhonchorous breath sounds bilaterally. There is no wheezing. ABDOMEN: Soft, nontender. There is no rebound or guarding. EXTREMITIES: Show no leg edema or calf tenderness. There is no cyanosis or clubbing. SKIN: Shows no rashes. NEUROLOGICAL: Shows no focal abnormalities. IMPRESSION: 1. Acinetobacter bacteremia. 2. Chronic bronchitis. 3. Anemia secondary to chronic blood loss. 4. Pancytopenia. 5. Non-Hodgkin's lymphoma. PLAN: 1. Continue antibiotics. 2. Continue bronchodilators. 3. Continue to monitor blood counts. Mango Davis MD [facility]/MODL /[id number]
--- NOTE | 2019-01-04 19:08 | NUR ---
PT IS RESTING IN BED WATCHING TV. NO RESPIRATORY DISTRESS NOTED. BED IN THE LOWEST POSITION, LOCKED, BED ALARM ON, AND CALL LIGHT WITHIN REACH. WILL CONTINUE TO MONITOR.
[2019-01-04] MEDS: ATORVASTATIN 40 MG TAB PO SCH (20:39)
[2019-01-05] VITALS: BP 143/61
[2019-01-05] MEDS: AMPICILLIN SOD/SULBACTAM 3GM 100 ML IV SCH ×3 (04:19→20:00)
[2019-01-05] MEDS: HYDRALAZINE HCL 100 MG TABLET PO SCH ×3 (05:42→22:00)
[2019-01-05 06:23] LABS: BASOPHILS # (AUTO) 0.1 (0.0-0.1); BASOPHILS % 0.4 % (0.0-1.0); EOSINOPHILS # (AUTO) 0.2 (0.0-0.4); EOSINOPHILS % 2.1 % (0.0-6.0); HEMATOCRIT 26.6 % (34.2-44.1); HEMOGLOBIN 8.3 g/dL (12.0-16.0); LYMPHOCYTES % 62.3 % (18.0-39.1); MEAN CORPUSCULAR HEMOGLOBIN 29.6 pg (28-32); MEAN CORPUSCULAR HGB CONC 31.2 g/dL (31-35); MONOCYTES # (AUTO) 0.6 (0.2-0.8); MONOCYTES % 5.7 % (4.4-11.3); NEUTROPHILS # (AUTO) 3.3 (2.1-6.9); NEUTROPHILS % 29.1 % (38.7-80.0); PLATELET COUNT 148 x10e3/uL (140-360); RED CELL DISTRIBUTION WIDTH 16.5 % (11.7-14.4)
[2019-01-05 06:40] LABS: ANION GAP 10.3 mmol/L (8-16); CALCIUM 8.1 mg/dL (8.4-10.2); CREATININE, SERUM 1.05 mg/dL (0.57-1.11); POTASSIUM 4.3 mmol/L (3.5-5.1)
--- NOTE | 2019-01-05 07:17 | NUR ---
PATIENT IN BED RESTING WITH NO S/S OF DISCOMFORT. RIGHT ARM SWELLING AND ELEVATED ON PILLOW. BED IN LOWER POSITION, CALL LIGHT AT REACH.
[2019-01-05] MEDS: INSULIN LISPRO 100 UNIT/1 ML 3ML VIAL SQ SCH ×4 (07:30→21:00)
[2019-01-05 08:00] VITALS: BP 151/66
[2019-01-05 08:02] LABS: ANISOCYTOSIS SLIGHT; EOSINOPHILS % (MANUAL) 2 % (0-7); HYPOCHROMASIA SLIGHT; LYMPHOCYTES % (MANUAL) 71 % (19-48); MONOCYTES % (MANUAL) 3 % (3.4-9.0); NEUTROPHILS % (MANUAL) 24 % (40-74); PLATELET ESTIMATE ADEQUATE; PLATELET MORPHOLOGY COMMENT NORMAL; RBC MORPHOLOGY COMMENT ABNORMAL
[2019-01-05] MEDS: FAMOTIDINE 20 MG TAB PO SCH ×2 (08:25→16:30)
[2019-01-05] MEDS: CARVEDILOL 12.5 MG TAB PO SCH ×2 (09:07→17:38)
[2019-01-05] MEDS: NIFEDIPINE CR 30 MG TAB PO SCH ×2 (09:08→17:38)
[2019-01-05] MEDS: FERROUS SULFATE 325 MG TAB PO SCH ×2 (09:08→17:38)
[2019-01-05] MEDS: CYANOCOBALAMIN 1,000 MCG TAB PO SCH (09:08)
[2019-01-05] MEDS: SODIUM BICARBONATE 650 MG TAB PO SCH (09:08)
[2019-01-05] MEDS: CLOPIDOGREL BISULFATE 75 MG TAB PO SCH (09:08)
[2019-01-05] MEDS: LEVETIRACETAM 500 MG TAB PO SCH ×2 (09:08→17:38)
[2019-01-05] MEDS: BACLOFEN 10 MG TAB PO SCH ×4 (09:08→21:00)
[2019-01-05] MEDS: BALSAM PERU/CASTOR OIL 60 GM OINT...G. TP SCH ×2 (09:08→21:00)
[2019-01-05] MEDS: LACTOBACILLUS ACIDOPHILUS CAPSULE PO SCH ×2 (09:08→17:38)
--- NOTE | 2019-01-05 10:32 | Progress Note ---
DATE: Pulmonary Progress Note SUBJECTIVE: The patient has no new complaints. PHYSICAL EXAMINATION: VITAL SIGNS: Blood pressure is 151/66 and the saturation is 95%. She is on room air. HEENT: Shows no facial swelling or erythema. CARDIAC: Reveals regular rate and rhythm with normal S1, S2. LUNGS: Auscultation of lungs reveals clear breath sounds bilaterally. There is no wheezing. ABDOMEN: Soft and nontender. There is no rebound or guarding. EXTREMITIES: Show no leg edema or calf tenderness. IMPRESSION: 1. Acinetobacter bacteremia. 2. Chronic bronchitis. 3. Anemia secondary to chronic blood loss. 4. Pancytopenia. 5. Non-Hodgkin lymphoma. PLAN: 1. Continue antibiotics. 2. Continue bronchodilators. 3. Monitor blood counts. 4. Tentative discharge on Monday. Mango aDvis MD [facility]/MODL /[id number]
--- NOTE | 2019-01-05 11:35 | NUR ---
PATIENT ASSISTED WITH DIAPER CHANGE, REPOSITIONED IN BED. CALL LIGHT AT REACH
[2019-01-05 12:01] VITALS: BP 164/72
--- NOTE | 2019-01-05 15:56 | NUR ---
PATIENT IN ROOM EXERCISING WITH PHYSICAL THERAPY. NO COMPLAIN VOICED. WILL CLOSELY MONITOR.
[2019-01-05 16:09] VITALS: BP 157/70
[2019-01-05] MEDS: MAGNESIUM HYDROXIDE 30 ML UDC PO PRN (17:58)
[2019-01-05 20:00] VITALS: BP 118/57
[2019-01-05] MEDS: ATORVASTATIN 40 MG TAB PO SCH (21:00)
[2019-01-06] VITALS (8 sets, daily range): BP systolic 129–172; BP diastolic 58–77
[2019-01-06] MEDS: AMPICILLIN SOD/SULBACTAM 3GM 100 ML IV SCH ×3 (03:29→21:25)
--- NOTE | 2019-01-06 05:24 | NUR ---
Patient laying in bed with HOB slightly elevated. No distress noted. No SOB noted. Patient in stable condition. Will continue to monitor.
[2019-01-06] MEDS: HYDRALAZINE HCL 100 MG TABLET PO SCH ×3 (05:56→21:25)
--- NOTE | 2019-01-06 07:11 | NUR ---
PATIENT ASSISTED WITH DIAPER CHANGE AND POSITIONING. BED IN LOWER POSITION, CALL LIGHT AT REACH.
[2019-01-06] MEDS: INSULIN LISPRO 100 UNIT/1 ML 3ML VIAL SQ SCH ×4 (07:30→21:00)
[2019-01-06] MEDS: FAMOTIDINE 20 MG TAB PO SCH ×2 (07:59→16:30)
[2019-01-06] MEDS: ACETAMINOPHEN 325 MG TAB PO PRN (08:30)
[2019-01-06] MEDS: FERROUS SULFATE 325 MG TAB PO SCH ×2 (09:09→17:35)
[2019-01-06] MEDS: CLOPIDOGREL BISULFATE 75 MG TAB PO SCH (09:09)
[2019-01-06] MEDS: LACTOBACILLUS ACIDOPHILUS CAPSULE PO SCH ×2 (09:09→17:35)
[2019-01-06] MEDS: BACLOFEN 10 MG TAB PO SCH ×4 (09:09→21:25)
[2019-01-06] MEDS: LEVETIRACETAM 500 MG TAB PO SCH ×2 (09:09→17:35)
[2019-01-06] MEDS: CARVEDILOL 12.5 MG TAB PO SCH ×2 (09:09→17:35)
[2019-01-06] MEDS: BALSAM PERU/CASTOR OIL 60 GM OINT...G. TP SCH ×2 (09:10→21:25)
[2019-01-06] MEDS: SODIUM BICARBONATE 650 MG TAB PO SCH (09:10)
[2019-01-06] MEDS: CYANOCOBALAMIN 1,000 MCG TAB PO SCH (09:10)
[2019-01-06] MEDS: NIFEDIPINE CR 30 MG TAB PO SCH ×2 (09:10→17:35)
--- NOTE | 2019-01-06 12:06 | Progress Note ---
DATE: Pulmonary Progress Note SUBJECTIVE: The patient is sitting upright and eating. She is more alert. She has no complaints. PHYSICAL EXAMINATION: VITAL SIGNS: The patient is afebrile. The blood pressure is 129/58 and the pulse is 71. Saturation is 95%. HEENT: Shows no facial swelling or erythema. The nasal mucosa is normal. The oropharynx is normal. LYMPHATIC: Shows no submandibular, cervical, or supraclavicular adenopathy. CARDIAC: Reveals a regular rate and rhythm with a normal S1 and S2. There are no murmurs or rubs. LUNGS: Auscultation of lungs reveals clear breath sounds bilaterally. There is no wheezing. ABDOMEN: Soft and nontender. There is no rebound or guarding. EXTREMITIES: Show no leg edema or calf tenderness. IMPRESSION: 1. Acinetobacter bacteremia. 2. Chronic bronchitis. 3. Anemia secondary to chronic blood loss. 4. Pancytopenia. 5. Non-Hodgkin's lymphoma. PLAN: 1. Continue current antibiotics. 2. Continue bronchodilators. 3. Monitor blood counts. 4. Possible discharge tomorrow. Mango Davis MD [facility]/MODL /[id number]
--- NOTE | 2019-01-06 12:06 | NUR ---
PATIENT ASSISTED WITH DIAPER CHANGE. HAD A LARGE BM. REPOSITIONED IN BED, IV ANTIBIOTIC INFUSING ORDERED. CALL LIGHT AT REACH.
--- NOTE | 2019-01-06 16:25 | NUR ---
PATIENT IN BED RESTING WITH EYES CLOSED, NO RESPIRATORY DISTRESS OBSERVED. BED IN LOWER POSITION, CALL LIGHT AT REACH.
[2019-01-06] MEDS: ATORVASTATIN 40 MG TAB PO SCH (21:25)
[2019-01-07] VITALS: BP 140/65
[2019-01-07 04:00] VITALS: BP 153/66
[2019-01-07] MEDS: AMPICILLIN SOD/SULBACTAM 3GM 100 ML IV SCH ×2 (04:26→12:49)
[2019-01-07] MEDS: HYDRALAZINE HCL 100 MG TABLET PO SCH ×2 (06:02→13:45)
[2019-01-07 07:41] VITALS: BP 186/74
[2019-01-07 08:00] VITALS: BP 186/74
[2019-01-07] MEDS: INSULIN LISPRO 100 UNIT/1 ML 3ML VIAL SQ SCH ×3 (08:00→12:49)
[2019-01-07] MEDS: FAMOTIDINE 20 MG TAB PO SCH ×2 (08:24→15:42)
[2019-01-07] MEDS: CARVEDILOL 12.5 MG TAB PO SCH ×2 (08:25→15:43)
[2019-01-07] MEDS: LEVETIRACETAM 500 MG TAB PO SCH ×2 (08:25→15:43)
[2019-01-07] MEDS: FERROUS SULFATE 325 MG TAB PO SCH ×2 (08:25→15:43)
[2019-01-07] MEDS: NIFEDIPINE CR 30 MG TAB PO SCH ×2 (08:26→15:43)
[2019-01-07] MEDS: SODIUM BICARBONATE 650 MG TAB PO SCH (08:26)
[2019-01-07] MEDS: CLOPIDOGREL BISULFATE 75 MG TAB PO SCH (08:26)
[2019-01-07] MEDS: BACLOFEN 10 MG TAB PO SCH ×3 (08:26→15:43)
[2019-01-07] MEDS: LACTOBACILLUS ACIDOPHILUS CAPSULE PO SCH ×2 (08:26→15:43)
[2019-01-07] MEDS: BALSAM PERU/CASTOR OIL 60 GM OINT...G. TP SCH (08:27)
[2019-01-07] MEDS: CYANOCOBALAMIN 1,000 MCG TAB PO SCH (08:27)
[2019-01-07 12:52] VITALS: BP 167/72
--- NOTE | 2019-01-07 13:38 | NUR ---
SPOKE WITH JACINTO AT [facility] PT IS TO RETURN TO FACILITY UNDER DR LAFLEUR RM 123B, CALL REPORT TO [phone]. RTF COMPLETED AND GIVEN TO NURSEWITH CLINICALS IN PACKET WELL FAXED TO FACILITY
[2019-01-07] MEDS ORDERED: ONDANSETRON HCL 4 MG ORAL DISINTEGRATING TAB PO PRN (14:30)
--- NOTE | 2019-01-07 15:02 | NUR ---
CM TO BEDSIDE TO DISCUSS IMM AND OBTAIN SIGNATURE. PATIENT VERBALIZED UNDERSTANDING OF DISCUSSION. COPY OF IMM TO CHART AND COPY PLACED IN CARE TRANSITION FOLDER.
[2019-01-07 16:00] VITALS: BP 165/89
--- NOTE | 2019-01-07 16:07 | NUR ---
Pt discharged at this time to [facility]. Pt is aox3 and able to verbalize needs. Denies any pain at this time. PT discharged with all personal belongings. Family notified of pt discharge.
--- NOTE | 2019-01-08 11:06 | Discharge Summary ---
DISCHARGE DIAGNOSES: 1. Acinetobacter bacteremia with sepsis, present on admission. 2. Chronic bronchitis. 3. History of prior cerebrovascular accident. 4. Pancytopenia. 5. Non-Hodgkin's lymphoma. 6. Anemia secondary to chronic blood loss. RADIOGRAPHIC DATA: 1. CT scan of the brain shows an old left cerebellar and striatocapsular chronic infarct. 2. Chest x-ray shows cardiomegaly and mild venous congestion. 3. Modified barium swallow shows no evidence of aspiration. CONSULTING PHYSICIANS: 1. Dr. Davis of Pulmonology. 2. Dr. Carrasquillo of Infectious Disease. 3. Dr. Katz of Hematology-Oncology. HISTORY OF PRESENT ILLNESS: The patient is a 68-year-old woman. She has a history of non-Hodgkin's lymphoma. She had a prior cerebrovascular accident. She also has some diabetes and chronic kidney disease. Apparently, she had a PICC line at the nursing facility. She came in with some worsening confusion and fevers. HOSPITAL COURSE: The patient was admitted. Blood culture showed Acinetobacter. She was started on appropriate antibiotics. She has improved with these antibiotics. White blood cell count returned to normal and she had no fever. She completed a full 14-day course. During the hospitalization, her blood sugars were monitored closely along with her renal function. These remained stable. She also received physical therapy. DISPOSITION: The patient will be discharged back to the [place] [facility] facility. Mango Davis MD [facility]/MODL /[id number]
== END 2019-01-07 16:09 | DRG 314 ==
LOC: ER 04:57 → ERHOLD 06:38 → MED/SURG3 14:50
PROVIDERS: ADMIT Internal Medicine; ATTEND Internal Medicine
PROC: 30233N1 Transfusion of Nonautologous Red Blood Cells into Peripheral Vein, Percutaneous Approach (ICD-10-PCS; principal; 2018-12-29)
DX: T80.211A Bloodstream infection due to central venous catheter, initial encounter (principal); A41.89 Other specified sepsis; J69.0 Pneumonitis due to inhalation of food and vomit; E87.2 Acidosis; D61.818 Other pancytopenia; C85.90 Non-Hodgkin lymphoma, unspecified, unspecified site; N17.9 Acute kidney failure, unspecified; I69.351 Hemiplegia and hemiparesis following cerebral infarction affecting right dominant side; J42 Unspecified chronic bronchitis; D50.0 Iron deficiency anemia secondary to blood loss (chronic); M62.50 Muscle wasting and atrophy, not elsewhere classified, unspecified site; I69.318 Other symptoms and signs involving cognitive functions following cerebral infarction; E11.22 Type 2 diabetes mellitus with diabetic chronic kidney disease; I12.9 Hypertensive chronic kidney disease with stage 1 through stage 4 chronic kidney disease, or unspecified chronic kidney disease; N18.9 Chronic kidney disease, unspecified; Z79.4 Long term (current) use of insulin; G47.00 Insomnia, unspecified
CPT/HCPCS: 36415; 70450; 71045; 74018; 74230; 80048; 80053; 80170; 81001; 82948; 83605; 83735; 85025; 86850; 86900; 86920; 87040; 87081; 87086; 87400; 94640; 97139; 99285; J0295; J0360; J1580; J2270; J2405; J2550; J3475; J7050; J7120; J7121; P9016